=== PATIENT | male | born 1960 | race Caucasian/White ===

== ENCOUNTER 2022-08-18 00:55 | Inpatient (IN) | payer OTHER, SELFPAY ==
[2022-08-18] VITALS (15 sets, daily range): BP systolic 97–157; BP diastolic 58–98; PULSE 94–126; RESP 11–20; TEMP 36.4–39.2; O2SAT 87–100; BMI 21.5
--- NOTE | ~2022-08-18 | CT_ITS ---
EXAMINATION: NONCONTRAST HEAD CT NONCONTRAST CERVICAL SPINE CT INDICATION INFORMATION: Altered mental status COMPARISON: None TECHNIQUE: Separate noncontrast CT examinations of the head and cervical spine were performed. Coronal head CT images and coronal and sagittal cervical spine images were created at the technologist workstation. DLP: 979 mGy-cm DOSE LOWERING TECHNIQUES: This CT examination was performed using dose optimization techniques as appropriate, variously including the following: - Automated exposure control - Adjustment of mA and/or kV according to patient size (this includes techniques or standardized protocols for targeted exams were dose is matched to indication/reason for exam; i.e. extremities or head) - Use of iterative reconstruction technique FINDINGS: Head: There is no evidence of acute intracranial hemorrhage or territorial infarction. No abnormal mass-effect or midline shift is seen. [place] to white matter differentiation is well preserved. No extra-axial fluid collections are identified. The ventricles are normal in size. There is no abnormal attenuation within the brain parenchyma. The osseous structures and soft tissues are normal. The mastoid air cells are well-aerated. Trace fluid in the right maxillary and sphenoid sinuses. Mild aerosolization in the left sphenoid sinus. Cervical spine: There is anatomic alignment of the vertebral bodies and posterior elements. Vertebral body heights are maintained. There is disc space narrowing and endplate osteophyte formation most prominently at C5-C6. There is degenerative change at the atlantodens articulation. No evidence of acute fracture. No prevertebral soft tissue swelling. There is patchy groundglass opacity in the right upper lobe, which will be better assessed on accompanying dedicated chest CT. The thyroid gland is unremarkable. CT/CT cervical spine wo IV con IMPRESSION: No acute findings identified in the head or cervical spine.
--- NOTE | ~2022-08-18 | CT_ITS ---
EXAMINATION: CT ANGIOGRAM OF THE CHEST WITH AND WITHOUT CONTRAST (CT PULMONARY ANGIOGRAM FOR PE) CLINICAL INFORMATION: Reason for Exam syncope, elevated ddimer COMPARISON: None TECHNIQUE: Prior to contrast administration, noncontrast localization images were obtained. Subsequently, multidetector volumetric imaging was performed from the thoracic inlet to below the diaphragms following the administration of 65 mL Omnipaque 350 intravenous contrast. No contrast reaction reported Sagittal, coronal, and MIP oblique sagittal reformatted images were obtained on the CT workstation, uploaded to PACS, and reviewed. This CT examination was performed using dose optimization techniques as appropriate, variously including the following: *Automated exposure control *Adjustment of mA and/or kV according to patient size (this includes techniques or standardized protocols for targeted exams where dose is matched to indication/reason for exam; i.e. extremities or head) *Use of iterative reconstruction technique Total exam dose-length product 197 mGy-cm FINDINGS: QUALITY OF STUDY/CONTRAST BOLUS: Satisfactory. PULMONARY ARTERIES: No central or segmental pulmonary emboli. THORACIC AORTA: No aneurysm or dissection. LUNG: There are patchy regions of predominantly groundglass opacity mixed with some tree-in-bud type nodularity bilaterally, right lung greater than left with sparing of the left upper lobe. Associated bronchial wall thickening is present, and overall appearance favors an infectious/inflammatory etiology. PLEURA: No pleural effusion or pneumothorax. MEDIASTINUM: Visualized thyroid gland is unremarkable. There are subcentimeter mediastinal lymph nodes within the range of normal variation. Cardiac size is within normal limits; no pericardial effusion. No evidence of septal bowing or right heart strain. CHEST WALL/AXILLA: No axillary or internal mammary lymphadenopathy. OSSEOUS STRUCTURES: Multilevel degenerative endplate changes in the spine. UPPER ABDOMEN: Cholelithiasis is noted. No reflux of contrast into the hepatic veins to suggest elevated right heart pressures. CT/CT angio chest PE protocol IMPRESSION: 1. No pulmonary embolus identified. 2. Multifocal patchy groundglass and tree-in-bud type opacities, right lung greater than left. Appearance favors an infectious/inflammatory etiology. Associated bronchial wall thickening is noted. 3. Cholelithiasis. VTE: negative
--- NOTE | 2022-08-18 01:04 | ECG_ITS ---
Test Reason : weakness Blood Pressure : / mmHG Vent. Rate : 112 BPM Atrial Rate : 112 BPM P-R Int : 168 ms QRS Dur : 102 ms QT Int : 360 ms P-R-T Axes : 062 035 002 degrees QTc Int : 491 ms Sinus tachycardia RSR' or QR pattern in V1 suggests right ventricular conduction delay Intra-ventricular conduction delay Otherwise normal ECG No previous ECGs available Referred By: Garima Burris Electronically Signed By:PORTER GRAHAM MD
--- NOTE | 2022-08-18 01:07 | ED.AMS ---
HPI - Altered Mental Status General Chief Complaint: General Medical Stated Complaint: AMS Time Seen by Provider: 08/18/22 00:56 Source: patient and EMS Mode of arrival: EMS Limitations: altered mental status History of Present Illness HPI narrative: 62 yo male with hx of HIV states he is undetectable, DM on oral medications, HTN, asthma, HLD, on temazapem and gabapentin - EMS states that the patient came from [place] today to visit family. He was reportedly found unresponsive after spending time with family - he was found on the bedroom floor with copious amounts of emesis. Patient was hypoxic and bagged - given 2mg IV narcan and he woke up 30 seconds later confused and with even more vomiting. He states he doesn't know what happened and denies drug use. Family does not report seizure activity. Spouse did note he was talking weird prior to the event. complaint: altered mental status and confusion Onset (ago): minute(s) (just prior to arrival ) Timing confirmed by: family member Severity: severe Consistency of symptoms: unknown Context: other (denies drug abuse, woke up with narcan) Associated symptoms: nausea/vomiting and shortness of breath (wheezing) Treatments prior to arrival: oxygen and other (2mg IV narcan) Related Data Allergies Allergy/AdvReac Type Severity Reaction Status Date / Time No Known Allergies Allergy Verified 08/18/22 01:31 Review of Systems Review of Systems: ROS unable to be obtained due to altered mental status PMFSH Past Medical History Source: old records reviewed (obtained from a pill list) Medical History (Updated 08/18/22 @ 05:51 by Garima Burris DO) Asthma Diabetes HIV (human immunodeficiency virus infection) HTN (hypertension) Hyperlipidemia Social History Social History Alcohol intake: never Patient Tobacco Use Status: Tobacco use Unknown Use of substances other than those prescribed or required for medical reasons: No Advance Directives: No Physical Exam ED Vital Signs: Vital Signs - 24 hr 08/18/22 01:01 08/18/22 02:54 08/18/22 04:18 Temperature 97.5 F 97.5 F Pulse Rate 106 H 109 H 111 H Respiratory Rate 20 16 Blood Pressure 157/98 H 111/66 122/67 Pulse Oximetry 89 L 97 Oxygen Delivery Method Non-Rebreather Mask High Flow Nasal Cannula Oxygen Flow Rate 8 BMI result Body Mass Index 21.5 Appearance: Alert. Oriented X2 (person/time). Moderate acute distress. Eyes: Pupils equal, round and reactive to light. 3mm R pupil small corneal abrasion superficial at 10 o clock position ENT: Pharynx vomitus noted in NRB mask. Atraumatic Neck: Normal inspection. Neck supple. CVS: Normal heart rate and rhythm. Pulses normal. Respiratory: No respiratory distress. Breath sounds very diminished R base, wheezes noted Abdomen: Soft and nontender. Skin: Skin warm and clammy. pale skin color. Normal skin turgor. Extremities: No lower extremity edema. Neuro: Oriented X 2. No motor deficit. No sensory deficit. Course Course Course Narrative: 30cc/kg bolus ordered family states prior hx of opiate abuse but 25 years ago. did not use tonight. lactic acidosis could also be due to HIV medications and metformin multifocal patchy opacities already treated for aspiration given possible aspiration, will add on azithromycin lactic acid decreasing focal exam for sepsis performed at 434am + for opiates as suspected though patient denied. will admit repeat trop flat. trop under ischemic range still requiring O2 MDM - Altered Mental Status MDM Narrative Medical decision making narrative: 62 yo male with hx of HIV states he is undetectable, DM on oral medications, HTN, asthma, HLD, on temazapem and gabapentin after some sort of event at family's house where he was found down with copious amounts of emesis around him. He woke up with narcan but he denies opiate use. At this time will need EKG, labs, CT head/cspine for trauma. IV nausea medications. He does look like he is now in active withdrawal. Just traveled from [facility] order in case this was syncope from [facility]. He likely aspirated - cultures, lactic acid ordered. He will be given pepcid/zofran and further anti - emetics. If aspiration noted on CXR will start on zosyn. Dispo per results and findings. Neb treatment ordered as well given wheezing and hx of asthma. Lab Data Result diagrams: 08/18/22 01:42 08/18/22 01:41 Labs: Lab Results 08/18/22 08/18/22 08/18/22 Range/Units 01:38 01:38 01:41 WBC (4.8-10.8) X10*3/uL RBC (4.60-5.80) X10*6/uL Hgb (14.0-18.0) g/dl Hct (42.0-52.0) % MCV (80.0-98.0) fL MCH (27.0-33.0) pg MCHC (31.0-36.0) g/dl RDW (11.0-16.0) % Plt Count (160-400) X10*3/uL MPV (9.4-12.4) fL Immature Gran % (Auto) (0.0-0.4) % Neut % (Auto) (45-73) % Lymph % (Auto) (20-40) % [place] % (Auto) (2-11) % Eos % (Auto) (0-4) % Baso % (Auto) (0-2) % Lymph # (Auto) (1.2-4.9) X10*3/uL [place] # (Auto) (0.1-1.2) X10*3/uL Eos # (Auto) (0.0-0.4) X10*3/uL Baso # (Auto) (0.0-0.2) X10*3/uL Abs Immat Gran (auto) (0.00-0.03) X10*3/uL Absolute Neuts (auto) (2.0-8.3) x10*3/uL Absolute Nucleated RBC (0.0-0.012) X10*3/uL Nucleated RBC % (auto) (0.0-0.2) /100WBC PT 10.9 (10.0-13.1) SEC INR 1.0 (0.9-1.1) APTT 25.7 L (26.0-36.4) SEC D-Dimer High Sensitivty NG/ML VBG pH (7.32-7.43) VBG pCO2 mmHg VBG pO2 mmHg VBG HCO3 (22-26) mmol/L VBG O2 Saturation % VBG Base Excess mmol/L Sodium 137 (135-145) mmol/L Potassium 4.2 (3.3-5.1) mmol/L Chloride 100 (96-108) mmol/L Carbon Dioxide 19 L (22-29) mmol/L Anion Gap 22 H (12-20) BUN 21 H (9-16) mg/dL Creatinine 1.17 (0.5-1.4) mg/dL Estim Creat Clear Calc 55.7 Estimated GFR > 60 Random Glucose 286 H (60-115) mg/dL Lactic Acid (0.5-2.0) mmol/L Lactic Acid F/U @ 2Hr (0.5-2.0) mmol/L Calcium 9.7 (8.4-10.2) mg/dL Magnesium 3.1 H (1.6-2.6) mg/dL Total Bilirubin 0.5 (0.0-1.0) mg/dL Direct Bilirubin 0.2 (0.0-0.5) mg/dL AST 30 (5-37) U/L ALT 46 H (0-40) U/L Alkaline Phosphatase 60 (39-117) U/L Ammonia (13-55) umol/L Total Creatine Kinase 46 (38-174) U/L Troponin I High Sens (<3.5-35.0) ng/L Total Protein 8.4 H (6.5-8.0) g/dL Albumin 4.5 (3.5-5.0) g/dL Lipase 76 (8-78) U/L Urine Color Urine Appearance Urine pH (5.0-9.0) Ur Specific [place] (1.005-1.025) Urine Protein (Neg-Trace) mg/dL Urine Glucose (UA) (Negative) mg/dL Urine Ketones (Negative) mg/dL Urine Blood (Negative) Urine Nitrite (Negative) Ur Leukocyte Esterase (Negative) Urine RBC (0-2) /HPF Urine WBC (0-5) /HPF Ur Squamous Epith Cells (0-2) /HPF Urine Bacteria (None Seen) Hyaline Casts (0-2) /LPF Salicylates < 5.0 L (15-30) mg/dL Urine Opiates Screen (Not Detect) Urine Fentanyl Screen (Not Detect) Acetaminophen < 1 (<30) mcg/mL Ur Barbiturates Screen (Not Detect) Ur Phencyclidine Scrn (Not Detect) Ur Amphetamines Screen (Not Detect) U Benzodiazepines Scrn (Not Detect) Urine Cocaine Screen (Not Detect) U Marijuana (THC) Screen (Not Detect) Ethyl Alcohol < 10 mg/dL COVID-19 (ANAI) Negative (Negative) COVID-19 Clin Com See Note 08/18/22 08/18/22 08/18/22 Range/Units 01:41 01:41 01:42 WBC 6.1 (4.8-10.8) X10*3/uL RBC 4.44 L (4.60-5.80) X10*6/uL Hgb 13.3 L (14.0-18.0) g/dl Hct 40.1 L (42.0-52.0) % MCV 90.3 (80.0-98.0) fL MCH 30.0 (27.0-33.0) pg MCHC 33.2 (31.0-36.0) g/dl RDW 13.0 (11.0-16.0) % Plt Count 175 (160-400) X10*3/uL MPV 10.5 (9.4-12.4) fL Immature Gran % (Auto) 0.3 (0.0-0.4) % Neut % (Auto) 57.7 (45-73) % Lymph % (Auto) 35.5 (20-40) % [place] % (Auto) 5.0 (2-11) % Eos % (Auto) 1.2 (0-4) % Baso % (Auto) 0.3 (0-2) % Lymph # (Auto) 2.2 (1.2-4.9) X10*3/uL [place] # (Auto) 0.3 (0.1-1.2) X10*3/uL Eos # (Auto) 0.1 (0.0-0.4) X10*3/uL Baso # (Auto) 0.0 (0.0-0.2) X10*3/uL Abs Immat Gran (auto) 0.02 (0.00-0.03) X10*3/uL Absolute Neuts (auto) 3.5 (2.0-8.3) x10*3/uL Absolute Nucleated RBC 0.000 (0.0-0.012) X10*3/uL Nucleated RBC % (auto) 0.0 (0.0-0.2) /100WBC PT (10.0-13.1) SEC INR (0.9-1.1) APTT (26.0-36.4) SEC D-Dimer High Sensitivty NG/ML VBG pH (7.32-7.43) VBG pCO2 mmHg VBG pO2 mmHg VBG HCO3 (22-26) mmol/L VBG O2 Saturation % VBG Base Excess mmol/L Sodium (135-145) mmol/L Potassium (3.3-5.1) mmol/L Chloride (96-108) mmol/L Carbon Dioxide (22-29) mmol/L Anion Gap (12-20) BUN (9-16) mg/dL Creatinine (0.5-1.4) mg/dL Estim Creat Clear Calc Estimated GFR Random Glucose (60-115) mg/dL Lactic Acid 5.7 H* (0.5-2.0) mmol/L Lactic Acid F/U @ 2Hr (0.5-2.0) mmol/L Calcium (8.4-10.2) mg/dL Magnesium (1.6-2.6) mg/dL Total Bilirubin (0.0-1.0) mg/dL Direct Bilirubin (0.0-0.5) mg/dL AST (5-37) U/L ALT (0-40) U/L Alkaline Phosphatase (39-117) U/L Ammonia 35 (13-55) umol/L Total Creatine Kinase (38-174) U/L Troponin I High Sens (<3.5-35.0) ng/L Total Protein (6.5-8.0) g/dL Albumin (3.5-5.0) g/dL Lipase (8-78) U/L Urine Color Urine Appearance Urine pH (5.0-9.0) Ur Specific [place] (1.005-1.025) Urine Protein (Neg-Trace) mg/dL Urine Glucose (UA) (Negative) mg/dL Urine Ketones (Negative) mg/dL Urine Blood (Negative) Urine Nitrite (Negative) Ur Leukocyte Esterase (Negative) Urine RBC (0-2) /HPF Urine WBC (0-5) /HPF Ur Squamous Epith Cells (0-2) /HPF Urine Bacteria (None Seen) Hyaline Casts (0-2) /LPF Salicylates (15-30) mg/dL Urine Opiates Screen (Not Detect) Urine Fentanyl Screen (Not Detect) Acetaminophen (<30) mcg/mL Ur Barbiturates Screen (Not Detect) Ur Phencyclidine Scrn (Not Detect) Ur Amphetamines Screen (Not Detect) U Benzodiazepines Scrn (Not Detect) Urine Cocaine Screen (Not Detect) U Marijuana (THC) Screen (Not Detect) Ethyl Alcohol mg/dL COVID-19 (ANAI) (Negative) COVID-19 Clin Com 08/18/22 08/18/22 08/18/22 Range/Units 01:42 01:43 01:50 WBC (4.8-10.8) X10*3/uL RBC (4.60-5.80) X10*6/uL Hgb (14.0-18.0) g/dl Hct (42.0-52.0) % MCV (80.0-98.0) fL MCH (27.0-33.0) pg MCHC (31.0-36.0) g/dl RDW (11.0-16.0) % Plt Count (160-400) X10*3/uL MPV (9.4-12.4) fL Immature Gran % (Auto) (0.0-0.4) % Neut % (Auto) (45-73) % Lymph % (Auto) (20-40) % [place] % (Auto) (2-11) % Eos % (Auto) (0-4) % Baso % (Auto) (0-2) % Lymph # (Auto) (1.2-4.9) X10*3/uL [place] # (Auto) (0.1-1.2) X10*3/uL Eos # (Auto) (0.0-0.4) X10*3/uL Baso # (Auto) (0.0-0.2) X10*3/uL Abs Immat Gran (auto) (0.00-0.03) X10*3/uL Absolute Neuts (auto) (2.0-8.3) x10*3/uL Absolute Nucleated RBC (0.0-0.012) X10*3/uL Nucleated RBC % (auto) (0.0-0.2) /100WBC PT (10.0-13.1) SEC INR (0.9-1.1) APTT (26.0-36.4) SEC D-Dimer High Sensitivty 380 NG/ML VBG pH 7.31 L (7.32-7.43) VBG pCO2 35 mmHg VBG pO2 80 mmHg VBG HCO3 18 L (22-26) mmol/L VBG O2 Saturation 93.0 % VBG Base Excess -6.7 mmol/L Sodium (135-145) mmol/L Potassium (3.3-5.1) mmol/L Chloride (96-108) mmol/L Carbon Dioxide (22-29) mmol/L Anion Gap (12-20) BUN (9-16) mg/dL Creatinine (0.5-1.4) mg/dL Estim Creat Clear Calc Estimated GFR Random Glucose (60-115) mg/dL Lactic Acid (0.5-2.0) mmol/L Lactic Acid F/U @ 2Hr (0.5-2.0) mmol/L Calcium (8.4-10.2) mg/dL Magnesium (1.6-2.6) mg/dL Total Bilirubin (0.0-1.0) mg/dL Direct Bilirubin (0.0-0.5) mg/dL AST (5-37) U/L ALT (0-40) U/L Alkaline Phosphatase (39-117) U/L Ammonia (13-55) umol/L Total Creatine Kinase (38-174) U/L Troponin I High Sens < 3.5 (<3.5-35.0) ng/L Total Protein (6.5-8.0) g/dL Albumin (3.5-5.0) g/dL Lipase (8-78) U/L Urine Color Urine Appearance Urine pH (5.0-9.0) Ur Specific [place] (1.005-1.025) Urine Protein (Neg-Trace) mg/dL Urine Glucose (UA) (Negative) mg/dL Urine Ketones (Negative) mg/dL Urine Blood (Negative) Urine Nitrite (Negative) Ur Leukocyte Esterase (Negative) Urine RBC (0-2) /HPF Urine WBC (0-5) /HPF Ur Squamous Epith Cells (0-2) /HPF Urine Bacteria (None Seen) Hyaline Casts (0-2) /LPF Salicylates (15-30) mg/dL Urine Opiates Screen (Not Detect) Urine Fentanyl Screen (Not Detect) Acetaminophen (<30) mcg/mL Ur Barbiturates Screen (Not Detect) Ur Phencyclidine Scrn (Not Detect) Ur Amphetamines Screen (Not Detect) U Benzodiazepines Scrn (Not Detect) Urine Cocaine Screen (Not Detect) U Marijuana (THC) Screen (Not Detect) Ethyl Alcohol mg/dL COVID-19 (ANAI) (Negative) COVID-19 Clin Com 08/18/22 08/18/22 08/18/22 Range/Units 04:13 04:13 04:13 WBC (4.8-10.8) X10*3/uL RBC (4.60-5.80) X10*6/uL Hgb (14.0-18.0) g/dl Hct (42.0-52.0) % MCV (80.0-98.0) fL MCH (27.0-33.0) pg MCHC (31.0-36.0) g/dl RDW (11.0-16.0) % Plt Count (160-400) X10*3/uL MPV (9.4-12.4) fL Immature Gran % (Auto) (0.0-0.4) % Neut % (Auto) (45-73) % Lymph % (Auto) (20-40) % [place] % (Auto) (2-11) % Eos % (Auto) (0-4) % Baso % (Auto) (0-2) % Lymph # (Auto) (1.2-4.9) X10*3/uL [place] # (Auto) (0.1-1.2) X10*3/uL Eos # (Auto) (0.0-0.4) X10*3/uL Baso # (Auto) (0.0-0.2) X10*3/uL Abs Immat Gran (auto) (0.00-0.03) X10*3/uL Absolute Neuts (auto) (2.0-8.3) x10*3/uL Absolute Nucleated RBC (0.0-0.012) X10*3/uL Nucleated RBC % (auto) (0.0-0.2) /100WBC PT (10.0-13.1) SEC INR (0.9-1.1) APTT (26.0-36.4) SEC D-Dimer High Sensitivty NG/ML VBG pH (7.32-7.43) VBG pCO2 mmHg VBG pO2 mmHg VBG HCO3 (22-26) mmol/L VBG O2 Saturation % VBG Base Excess mmol/L Sodium (135-145) mmol/L Potassium (3.3-5.1) mmol/L Chloride (96-108) mmol/L Carbon Dioxide (22-29) mmol/L Anion Gap (12-20) BUN (9-16) mg/dL Creatinine (0.5-1.4) mg/dL Estim Creat Clear Calc Estimated GFR Random Glucose (60-115) mg/dL Lactic Acid (0.5-2.0) mmol/L Lactic Acid F/U @ 2Hr 2.4 H* (0.5-2.0) mmol/L Calcium (8.4-10.2) mg/dL Magnesium (1.6-2.6) mg/dL Total Bilirubin (0.0-1.0) mg/dL Direct Bilirubin (0.0-0.5) mg/dL AST (5-37) U/L ALT (0-40) U/L Alkaline Phosphatase (39-117) U/L Ammonia (13-55) umol/L Total Creatine Kinase (38-174) U/L Troponin I High Sens 7.6 D (<3.5-35.0) ng/L Total Protein (6.5-8.0) g/dL Albumin (3.5-5.0) g/dL Lipase (8-78) U/L Urine Color Yellow Urine Appearance Clear Urine pH 6.0 (5.0-9.0) Ur Specific [place] >= 1.030 H (1.005-1.025) Urine Protein Trace (Neg-Trace) mg/dL Urine Glucose (UA) >=1000 H (Negative) mg/dL Urine Ketones 15 (Negative) mg/dL Urine Blood Negative (Negative) Urine Nitrite Negative (Negative) Ur Leukocyte Esterase Negative (Negative) Urine RBC 0-2 (0-2) /HPF Urine WBC 0-5 (0-5) /HPF Ur Squamous Epith Cells 0-2 (0-2) /HPF Urine Bacteria None Seen (None Seen) Hyaline Casts 0-2 (0-2) /LPF Salicylates (15-30) mg/dL Urine Opiates Screen (Not Detect) Urine Fentanyl Screen (Not Detect) Acetaminophen (<30) mcg/mL Ur Barbiturates Screen (Not Detect) Ur Phencyclidine Scrn (Not Detect) Ur Amphetamines Screen (Not Detect) U Benzodiazepines Scrn (Not Detect) Urine Cocaine Screen (Not Detect) U Marijuana (THC) Screen (Not Detect) Ethyl Alcohol mg/dL COVID-19 (ANAI) (Negative) COVID-19 Clin Com 08/18/22 Range/Units 04:13 WBC (4.8-10.8) X10*3/uL RBC (4.60-5.80) X10*6/uL Hgb (14.0-18.0) g/dl Hct (42.0-52.0) % MCV (80.0-98.0) fL MCH (27.0-33.0) pg MCHC (31.0-36.0) g/dl RDW (11.0-16.0) % Plt Count (160-400) X10*3/uL MPV (9.4-12.4) fL Immature Gran % (Auto) (0.0-0.4) % Neut % (Auto) (45-73) % Lymph % (Auto) (20-40) % [place] % (Auto) (2-11) % Eos % (Auto) (0-4) % Baso % (Auto) (0-2) % Lymph # (Auto) (1.2-4.9) X10*3/uL [place] # (Auto) (0.1-1.2) X10*3/uL Eos # (Auto) (0.0-0.4) X10*3/uL Baso # (Auto) (0.0-0.2) X10*3/uL Abs Immat Gran (auto) (0.00-0.03) X10*3/uL Absolute Neuts (auto) (2.0-8.3) x10*3/uL Absolute Nucleated RBC (0.0-0.012) X10*3/uL Nucleated RBC % (auto) (0.0-0.2) /100WBC PT (10.0-13.1) SEC INR (0.9-1.1) APTT (26.0-36.4) SEC D-Dimer High Sensitivty NG/ML VBG pH (7.32-7.43) VBG pCO2 mmHg VBG pO2 mmHg VBG HCO3 (22-26) mmol/L VBG O2 Saturation % VBG Base Excess mmol/L Sodium (135-145) mmol/L Potassium (3.3-5.1) mmol/L Chloride (96-108) mmol/L Carbon Dioxide (22-29) mmol/L Anion Gap (12-20) BUN (9-16) mg/dL Creatinine (0.5-1.4) mg/dL Estim Creat Clear Calc Estimated GFR Random Glucose (60-115) mg/dL Lactic Acid (0.5-2.0) mmol/L Lactic Acid F/U @ 2Hr (0.5-2.0) mmol/L Calcium (8.4-10.2) mg/dL Magnesium (1.6-2.6) mg/dL Total Bilirubin (0.0-1.0) mg/dL Direct Bilirubin (0.0-0.5) mg/dL AST (5-37) U/L ALT (0-40) U/L Alkaline Phosphatase (39-117) U/L Ammonia (13-55) umol/L Total Creatine Kinase (38-174) U/L Troponin I High Sens (<3.5-35.0) ng/L Total Protein (6.5-8.0) g/dL Albumin (3.5-5.0) g/dL Lipase (8-78) U/L Urine Color Urine Appearance Urine pH (5.0-9.0) Ur Specific [place] (1.005-1.025) Urine Protein (Neg-Trace) mg/dL Urine Glucose (UA) (Negative) mg/dL Urine Ketones (Negative) mg/dL Urine Blood (Negative) Urine Nitrite (Negative) Ur Leukocyte Esterase (Negative) Urine RBC (0-2) /HPF Urine WBC (0-5) /HPF Ur Squamous Epith Cells (0-2) /HPF Urine Bacteria (None Seen) Hyaline Casts (0-2) /LPF Salicylates (15-30) mg/dL Urine Opiates Screen POSITIVE H (Not Detect) Urine Fentanyl Screen POSITIVE H (Not Detect) Acetaminophen (<30) mcg/mL Ur Barbiturates Screen Not Detected (Not Detect) Ur Phencyclidine Scrn Not Detected (Not Detect) Ur Amphetamines Screen Not Detected (Not Detect) U Benzodiazepines Scrn Not Detected (Not Detect) Urine Cocaine Screen Not Detected (Not Detect) U Marijuana (THC) Screen Not Detected (Not Detect) Ethyl Alcohol mg/dL COVID-19 (ANAI) (Negative) COVID-19 Clin Com ECG Data ECG #1: Attestation: I personally reviewed and interpreted this ECG as follows: ECG interpretation date: 08/18/22 ECG interpretation time: 01:07 Interpretation: Rate: 112 Rhythm: sinus tachycardia [place]: normal Normal P waves. Normal ERIN. slightly widened QRS complex. ST T wave : no NAHUM, nonspecific qTC: prolonged prior studies: none The study has been interpreted contemporaneously by me. . Critical Care Time Critical Care Time Critical Care Time: Yes Total Critical Care Time: 45 Attestation: reassessments, IVF, repeat labs, review of medications on PillID, admission to hospital, hypoxia interventions I attest to this time spent taking care of the patient Discharge Plan Discharge Clinical Impression: Acidosis, lactic, Syncope, Ground glass opacity present on imaging of lung, Hypoxia, Accidental fentanyl overdose, Pneumonitis, Abrasion, corneal Patient Disposition: Admitted As Inpatient
[2022-08-18] MEDS: Albuterol Sulfate (0.083%) 2.5 MG/3 ML VIAL.NEB INHALE (01:13)
[2022-08-18] MEDS: ondansetron HCL 4 MG/2 ML VIAL IVPUSH ×2 (01:17→06:26)
[2022-08-18] MEDS: Magnesium Sulfate/H2O 2 GM/50 ML PIGGYBACK IV (01:20)
[2022-08-18] MEDS: Metoclopramide HCl 10 MG/2 ML VIAL 5 MG IVPUSH (01:34)
[2022-08-18] MEDS: Famotidine/PF 20 MG/2 ML VIAL IVPUSH (01:35)
[2022-08-18] MEDS: diphenhydrAMINE HCL 50 MG/ML VIAL 25 MG IVPUSH (01:35)
[2022-08-18 01:51] LABS: Basophils Percent Auto 0.3 % (0-2); Eosinophils Absolute Auto 0.1 X10*3/uL (0.0-0.4); Eosinophils Percent Auto 1.2 % (0-4); Hematocrit 40.1 % (42.0-52.0); Hemoglobin 13.3 g/dl (14.0-18.0); Imm Gran Abs Auto 0.02 X10*3/uL (0.00-0.03); Imm Gran Pct Auto 0.3 % (0.0-0.4); Lymphocytes Absolute Auto 2.2 X10*3/uL (1.2-4.9); Lymphocytes Percent Auto 35.5 % (20-40); MANUAL DIFF FLAG NO; Mean Corpuscular HGB Conc 33.2 g/dl (31.0-36.0); Mean Corpuscular Volume 90.3 fL (80.0-98.0); Mean Platelet Volume 10.5 fL (9.4-12.4); Monocytes Absolute Auto 0.3 X10*3/uL (0.1-1.2); Neutrophils Absolute Auto 3.5 x10*3/uL (2.0-8.3); Neutrophils Percent Auto 57.7 % (45-73); Platelet Count 175 X10*3/uL (160-400); Red Blood Count 4.44 X10*6/uL (4.60-5.80); White Blood Count 6.1 X10*3/uL (4.8-10.8)
[2022-08-18 01:56] LABS: Venous Blood Gas Refer to POC result
[2022-08-18 01:57] LABS: Prothrombin Time 10.9 SEC (10.0-13.1)
[2022-08-18 01:57] LABS: VBG Base Excess -6.7 mmol/L; VBG HCO3 18 mmol/L (22-26); VBG pCO2 35 mmHg; VBG pH 7.31 (7.32-7.43); VBG pO2 80 mmHg
[2022-08-18 01:59] LABS: D Dimer High Sensitivity 380 NG/ML
[2022-08-18 02:00] LABS: Partial Thromboplastin Time 25.7 SEC (26.0-36.4)
[2022-08-18 02:02] LABS: Ammonia 35 umol/L (13-55)
[2022-08-18 02:06] LABS: COVID-19 Test Negative (Negative)
[2022-08-18 02:08] LABS: Lactic Acid 5.7 mmol/L (0.5-2.0)
[2022-08-18 02:14] LABS: Troponin-I High Sensitivity < 3.5 ng/L (<3.5-35.0)
[2022-08-18 02:20] LABS: Acetaminophen LAB < 1 mcg/mL (<30); Alanine Aminotransferase 46 U/L (0-40); Albumin Level 4.5 g/dL (3.5-5.0); Alkaline Phosphatase 60 U/L (39-117); Anion Gap 22 (12-20); Aspartate Amino Transferase 30 U/L (5-37); Bilirubin Direct 0.2 mg/dL (0.0-0.5); Bilirubin Total 0.5 mg/dL (0.0-1.0); Blood Urea Nitrogen 21 mg/dL (9-16); Calcium 9.7 mg/dL (8.4-10.2); Carbon Dioxide 19 mmol/L (22-29); Chloride 100 mmol/L (96-108); Creatinine Clr Calc Pharmacy 55.7; Estimated Glomerular Filt Rate > 60; Ethanol < 10 mg/dL; Glucose Random 286 mg/dL (60-115); Lipase 76 U/L (8-78); Magnesium 3.1 mg/dL (1.6-2.6); Potassium 4.2 mmol/L (3.3-5.1); Salicylate < 5.0 mg/dL (15-30); Sodium 137 mmol/L (135-145); Total Protein 8.4 g/dL (6.5-8.0)
[2022-08-18] MEDS: SODIUM CHLORIDE 1761 ML IV (02:48)
[2022-08-18] MEDS: Piperacillin Sodium/Tazobactam 3.375 GM in 0.9 % Sodium Chloride 50 ML IV (02:52)
[2022-08-18] MEDS: iohexoL 350 MG/ML 100 ML INFUS..BTL 65 ML IV (02:53)
[2022-08-18 03:51] LABS: Reflex Lactate? Lactic Acid Added
[2022-08-18 04:22] LABS: Appearance Urine Clear; Color Urine Yellow; Glucose Urine UA >=1000 mg/dL (Negative); Leukocyte Esterase Urine Negative (Negative); Nitrite Urine Negative (Negative); Specific Gravity - Urine >= 1.030 (1.005-1.025); UMIC TRIGGER UACC YES; Urine Blood Negative (Negative); Urine Ketones 15 mg/dL (Negative); Urine Protein Trace mg/dL (Neg-Trace)
[2022-08-18 04:27] LABS: Bacteria Urine None Seen (None Seen); Hyaline Casts Urine 0-2 /LPF (0-2); RBC Urine 0-2 /HPF (0-2); Squamous Epithelial Cell Urine 0-2 /HPF (0-2); WBC Urine 0-5 /HPF (0-5)
[2022-08-18 04:33] LABS: ~Lactic Acid-LAB USE ONLY 2.4 mmol/L (0.5-2.0)
[2022-08-18 04:37] LABS: Amphetamine Screen Urine Not Detected (Not Detect); Barbiturates, Urine Not Detected (Not Detect); Benzodiazepines Screen Urine Not Detected (Not Detect); Cannabinoid Screen Urine Not Detected (Not Detect); Cocaine Screen Urine Not Detected (Not Detect); Fentanyl, urine POSITIVE (Not Detect); Opiate Screen Urine POSITIVE (Not Detect); Phencyclidine Screen Urine Not Detected (Not Detect)
[2022-08-18 04:42] LABS: Troponin-I High Sensitivity 7.6 ng/L (<3.5-35.0)
[2022-08-18] MEDS: Azithromycin 500 MG in 0.9 % Sodium Chloride 250 ML 125 MG IV (04:45)
--- NOTE | 2022-08-18 05:18 | P.HPHOSP_ITS ---
History of Present Illness Date of Service: 08/18/22 Chief Complaint: Found down This is a 62-year-old male, resident of [place] with pertinent history of HIV, opioid use disorder, wft-hlxlnnr-dytcqddro diabetes mellitus, essential hypertension, hyperlipidemia who was brought to the emergency department after he was found unresponsive. Patient does not know why he is in the hospital and has no memory of what happened. States he was visiting family in the area for a . As per records, patient was found unresponsive on bedroom floor with copious amounts of emesis. Upon EMS arrival, patient was hypoxemic in the 80s. He woke up after 2 mg of IV Narcan but was confused. Patient initially denied drug use but later stated that he used heroin prior to being passed out. No seizure activity reported. Patient does endorse shortness of breath but denies fever, chills, chest discomfort, abdominal pain, changes in urinary or bowel habits. States he was clean for 25 years until he snorted heroin today. Review of Systems Review of Systems: All 13 review of systems are negative except as noted in [facility] Medical History (Updated 08/18/22 @ 05:28 by Cher Ramos MD) Asthma Diabetes HIV (human immunodeficiency virus infection) HTN (hypertension) Hyperlipidemia Social History Alcohol intake: never Patient Tobacco Use Status: Tobacco use Unknown Use of substances other than those prescribed or required for medical reasons: No Advance Directives: No Meds Allergies Allergy/AdvReac Type Severity Reaction Status Date / Time No Known Allergies Allergy Verified 08/18/22 01:31 Active Medications: Current Medications Acetaminophen (Acetaminophen 325 Mg Tablet) 650 mg PO Q6H PRN PRN Reason: Pain, Mild (Pain Scale 1-3) Benzonatate (Benzonatate 100 Mg Capsule) 100 mg PO TID PRN PRN Reason: Cough Enoxaparin Sodium (Enoxaparin Sodium 40 Mg/0.4 Ml Syringe) 40 mg SUBCUT Q24H AUBREE Azithromycin 500 mg/ Sodium (Chloride) 250 mls @ 125 mls/hr IV ONCE ONE Stop: 08/18/22 05:40 Melatonin (Melatonin 3 Mg Tablet) 6 mg PO BEDTIME PRN PRN Reason: Insomnia Ondansetron HCl (Ondansetron Hcl 4 Mg/2 Ml Vial) 4 mg IVPUSH Q8H PRN PRN Reason: Nausea and Vomiting Sodium Chloride (0.9 % Sodium Chloride Flush 3 Ml Syringe) 3 ml IVFLUSH QSHIFT AUBREE Physical Exam Vital Signs and Narrative: Vital Signs: Last Vital Signs Temp 97.5 F 08/18/22 02:54 Pulse 111 H 08/18/22 04:18 Resp 16 08/18/22 02:54 BP 122/67 08/18/22 04:18 Pulse Ox 97 08/18/22 02:54 O2 Del Method 08/18/22 02:54 O2 Flow Rate 8 08/18/22 02:54 Oxygen Flow Rate 10 08/18/22 01:01 BMI result Body Mass Index 21.5 Middle-aged male lying in bed in no distress on 2 L supplemental oxygen Neck supple, no JVD Tachycardic with regular rhythm, S1-S2 heard Right-sided crackles heard Abdomen soft nontender, no guarding, no rigidity Patient is awake, alert and oriented to self, place, time and person ; no focal motor deficit Psych: Normal mood No pedal edema Results Labs CBC and Chem 7: 08/18/22 01:42 08/18/22 01:41 Labs: Laboratory Results - last 24 hr 08/18/22 08/18/22 08/18/22 01:38 01:38 01:41 MCV MCH MCHC RDW Plt Count MPV Immature Gran % (Auto) Neut % (Auto) Lymph % (Auto) [place] % (Auto) Eos % (Auto) Baso % (Auto) Lymph # (Auto) [place] # (Auto) Eos # (Auto) Baso # (Auto) Abs Immat Gran (auto) Absolute Neuts (auto) Absolute Nucleated RBC Nucleated RBC % (auto) PT 10.9 INR 1.0 APTT 25.7 L D-Dimer High Sensitivty VBG pH VBG pCO2 VBG pO2 VBG HCO3 VBG O2 Saturation VBG Base Excess Anion Gap 22 H Estim Creat Clear Calc 55.7 Estimated GFR > 60 Random Glucose 286 H Lactic Acid Lactic Acid F/U @ 2Hr Calcium 9.7 Magnesium 3.1 H Total Bilirubin 0.5 Direct Bilirubin 0.2 AST 30 ALT 46 H Alkaline Phosphatase 60 Ammonia Total Creatine Kinase 46 Troponin I High Sens Total Protein 8.4 H Albumin 4.5 Lipase 76 Urine Color Urine Appearance Urine pH Ur Specific [place] Urine Protein Urine Glucose (UA) Urine Ketones Urine Blood Urine Nitrite Ur Leukocyte Esterase Urine RBC Urine WBC Ur Squamous Epith Cells Urine Bacteria Hyaline Casts Salicylates < 5.0 L Urine Opiates Screen Urine Fentanyl Screen Acetaminophen < 1 Ur Barbiturates Screen Ur Phencyclidine Scrn Ur Amphetamines Screen U Benzodiazepines Scrn Urine Cocaine Screen U Marijuana (THC) Screen Ethyl Alcohol < 10 COVID-19 (ANAI) Negative COVID-19 Clin Com See Note 08/18/22 08/18/22 08/18/22 01:41 01:41 01:42 MCV 90.3 MCH 30.0 MCHC 33.2 RDW 13.0 Plt Count 175 MPV 10.5 Immature Gran % (Auto) 0.3 Neut % (Auto) 57.7 Lymph % (Auto) 35.5 [place] % (Auto) 5.0 Eos % (Auto) 1.2 Baso % (Auto) 0.3 Lymph # (Auto) 2.2 [place] # (Auto) 0.3 Eos # (Auto) 0.1 Baso # (Auto) 0.0 Abs Immat Gran (auto) 0.02 Absolute Neuts (auto) 3.5 Absolute Nucleated RBC 0.000 Nucleated RBC % (auto) 0.0 PT INR APTT D-Dimer High Sensitivty VBG pH VBG pCO2 VBG pO2 VBG HCO3 VBG O2 Saturation VBG Base Excess Anion Gap Estim Creat Clear Calc Estimated GFR Random Glucose Lactic Acid 5.7 H* Lactic Acid F/U @ 2Hr Calcium Magnesium Total Bilirubin Direct Bilirubin AST ALT Alkaline Phosphatase Ammonia 35 Total Creatine Kinase Troponin I High Sens Total Protein Albumin Lipase Urine Color Urine Appearance Urine pH Ur Specific [place] Urine Protein Urine Glucose (UA) Urine Ketones Urine Blood Urine Nitrite Ur Leukocyte Esterase Urine RBC Urine WBC Ur Squamous Epith Cells Urine Bacteria Hyaline Casts Salicylates Urine Opiates Screen Urine Fentanyl Screen Acetaminophen Ur Barbiturates Screen Ur Phencyclidine Scrn Ur Amphetamines Screen U Benzodiazepines Scrn Urine Cocaine Screen U Marijuana (THC) Screen Ethyl Alcohol COVID-19 (ANAI) COVID-19 Clin Com 08/18/22 08/18/22 08/18/22 01:42 01:43 01:50 MCV MCH MCHC RDW Plt Count MPV Immature Gran % (Auto) Neut % (Auto) Lymph % (Auto) [place] % (Auto) Eos % (Auto) Baso % (Auto) Lymph # (Auto) [place] # (Auto) Eos # (Auto) Baso # (Auto) Abs Immat Gran (auto) Absolute Neuts (auto) Absolute Nucleated RBC Nucleated RBC % (auto) PT INR APTT D-Dimer High Sensitivty 380 VBG pH 7.31 L VBG pCO2 35 VBG pO2 80 VBG HCO3 18 L VBG O2 Saturation 93.0 VBG Base Excess -6.7 Anion Gap Estim Creat Clear Calc Estimated GFR Random Glucose Lactic Acid Lactic Acid F/U @ 2Hr Calcium Magnesium Total Bilirubin Direct Bilirubin AST ALT Alkaline Phosphatase Ammonia Total Creatine Kinase Troponin I High Sens < 3.5 Total Protein Albumin Lipase Urine Color Urine Appearance Urine pH Ur Specific [place] Urine Protein Urine Glucose (UA) Urine Ketones Urine Blood Urine Nitrite Ur Leukocyte Esterase Urine RBC Urine WBC Ur Squamous Epith Cells Urine Bacteria Hyaline Casts Salicylates Urine Opiates Screen Urine Fentanyl Screen Acetaminophen Ur Barbiturates Screen Ur Phencyclidine Scrn Ur Amphetamines Screen U Benzodiazepines Scrn Urine Cocaine Screen U Marijuana (THC) Screen Ethyl Alcohol COVID-19 (ANAI) COVID-19 Clin Com 08/18/22 08/18/22 08/18/22 04:13 04:13 04:13 MCV MCH MCHC RDW Plt Count MPV Immature Gran % (Auto) Neut % (Auto) Lymph % (Auto) [place] % (Auto) Eos % (Auto) Baso % (Auto) Lymph # (Auto) [place] # (Auto) Eos # (Auto) Baso # (Auto) Abs Immat Gran (auto) Absolute Neuts (auto) Absolute Nucleated RBC Nucleated RBC % (auto) PT INR APTT D-Dimer High Sensitivty VBG pH VBG pCO2 VBG pO2 VBG HCO3 VBG O2 Saturation VBG Base Excess Anion Gap Estim Creat Clear Calc Estimated GFR Random Glucose Lactic Acid Lactic Acid F/U @ 2Hr 2.4 H* Calcium Magnesium Total Bilirubin Direct Bilirubin AST ALT Alkaline Phosphatase Ammonia Total Creatine Kinase Troponin I High Sens 7.6 D Total Protein Albumin Lipase Urine Color Yellow Urine Appearance Clear Urine pH 6.0 Ur Specific [place] >= 1.030 H Urine Protein Trace Urine Glucose (UA) >=1000 H Urine Ketones 15 Urine Blood Negative Urine Nitrite Negative Ur Leukocyte Esterase Negative Urine RBC 0-2 Urine WBC 0-5 Ur Squamous Epith Cells 0-2 Urine Bacteria None Seen Hyaline Casts 0-2 Salicylates Urine Opiates Screen Urine Fentanyl Screen Acetaminophen Ur Barbiturates Screen Ur Phencyclidine Scrn Ur Amphetamines Screen U Benzodiazepines Scrn Urine Cocaine Screen U Marijuana (THC) Screen Ethyl Alcohol COVID-19 (ANAI) COVID-19 Clin Com 08/18/22 04:13 MCV MCH MCHC RDW Plt Count MPV Immature Gran % (Auto) Neut % (Auto) Lymph % (Auto) [place] % (Auto) Eos % (Auto) Baso % (Auto) Lymph # (Auto) [place] # (Auto) Eos # (Auto) Baso # (Auto) Abs Immat Gran (auto) Absolute Neuts (auto) Absolute Nucleated RBC Nucleated RBC % (auto) PT INR APTT D-Dimer High Sensitivty VBG pH VBG pCO2 VBG pO2 VBG HCO3 VBG O2 Saturation VBG Base Excess Anion Gap Estim Creat Clear Calc Estimated GFR Random Glucose Lactic Acid Lactic Acid F/U @ 2Hr Calcium Magnesium Total Bilirubin Direct Bilirubin AST ALT Alkaline Phosphatase Ammonia Total Creatine Kinase Troponin I High Sens Total Protein Albumin Lipase Urine Color Urine Appearance Urine pH Ur Specific [place] Urine Protein Urine Glucose (UA) Urine Ketones Urine Blood Urine Nitrite Ur Leukocyte Esterase Urine RBC Urine WBC Ur Squamous Epith Cells Urine Bacteria Hyaline Casts Salicylates Urine Opiates Screen POSITIVE H Urine Fentanyl Screen POSITIVE H Acetaminophen Ur Barbiturates Screen Not Detected Ur Phencyclidine Scrn Not Detected Ur Amphetamines Screen Not Detected U Benzodiazepines Scrn Not Detected Urine Cocaine Screen Not Detected U Marijuana (THC) Screen Not Detected Ethyl Alcohol COVID-19 (ANAI) COVID-19 Clin Com Imaging Radiologist's Impressions: Impressions Cervical Spine CT 08/18/22 02:30 IMPRESSION: No acute findings identified in the head or cervical spine. Head CT 08/18/22 02:30 IMPRESSION: No acute findings identified in the head or cervical spine. Chest CTA 08/18/22 02:53 IMPRESSION: 1. No pulmonary embolus identified. 2. Multifocal patchy groundglass and tree-in-bud type opacities, right lung greater than left. Appearance favors an infectious/inflammatory etiology. Associated bronchial wall thickening is noted. 3. Cholelithiasis. VTE: negative Assessment and Plan (1) Hypoxia: Status: Acute (2) Aspiration pneumonia: Status: Acute (3) Acidosis, lactic: Status: Acute (4) Diabetes: Status: Acute (5) Opioid use: Status: Acute (6) HTN (hypertension): Status: Acute (7) Hyperlipidemia: Status: Acute (8) HIV (human immunodeficiency virus infection): Status: Acute Plan This is a 62-year-old male, resident of [place] with pertinent history of HIV, opioid use disorder, syu-rliixzf-queoozgxk diabetes mellitus, essential hypertension, hyperlipidemia who was brought to the emergency department after he was found unresponsive. #. Acute hypoxemic respiratory failure: #. Sepsis due to aspiration pneumonia -will admit patient with supplemental oxygen. Currently on 2 L, maintain oxygen saturation greater than 92% and wean as tolerated. Initiated Unasyn for asp iration pneumonia. #. Acute toxic encephalopathy due to: #. Opioid use disorder -improved mentation with Narcan. Monitor for withdrawal. #. Type a lactic acidosis -trending down with IV fluid resuscitation #. Dpw-mfchzvf-onpjywwjb diabetes mellitus with hyperglycemia -hold glipizide. Initiate Accu-Cheks with sliding scale insulin #. Essential hypertension #. Mixed hyperlipidemia -continue home medications #. HIV -patient states he is compliant and his viral load is undetectable. Continue antiviral therapy DVT prophylaxis: Lovenox 40 mg daily Diet: Cardiac diet Full code Patient will require two night minimum hospital stay for management of acute hypoxemic respiratory failure due to sepsis and aspiration pneumonia, need for IV antibiotics and close monitoring in a patient with opioid use disorder. Quality Stroke Does the patient have a stroke diagnosis?: No VTE Prior VTE?: No VTE Risk Level:: Medical - moderate - high VTE Device Contraindication: Treatment Not Indicated VTE Drug Contraindication: N/A - Med Ordered
[2022-08-18] MEDS: Albuterol/Iprat 2.5/0.5MG 3 ML AMPUL.NEB INHALE ×5 (05:41→19:30)
--- NOTE | 2022-08-18 05:46 | PC.NURSE ---
Patient c/o right eye pain and irritation. Eye constant watering, slightly red. Dr. Prieto aware see MAR.
[2022-08-18 06:19] LABS: Reflex Lactate? 2 Y
[2022-08-18] MEDS: Enoxaparin Sodium 40 MG/0.4 ML SYRINGE SUBCUT (06:26)
[2022-08-18] MEDS: Fluorescein Sodium STRIP 1 STRIP EYE-RIGHT (06:26)
[2022-08-18] MEDS: Tetracaine HCl/PF 0.5% Oph Sol 4 ML DROPS 1 DROP EYE-RIGHT (06:26)
[2022-08-18] MEDS: Benzonatate 100 MG CAPSULE PO (06:26)
[2022-08-18 07:05] LABS: Glucose, Whole Blood 257 mg/dL (60-115)
[2022-08-18 07:15] LABS: MANUAL DIFF FLAG NO
[2022-08-18] MEDS: Ampicillin Sodium/Sulbactam Na 3 GM in 0.9 % Sodium Chloride 100 ML IV ×4 (07:15→23:47)
[2022-08-18] MEDS: Insulin Lispro 100 UNIT/ML 3 ML VIAL SUBCUT ×3 (07:16→20:45)
[2022-08-18] MEDS: Erythromycin Base 0.5% Oph Oin 1 GM TUBE 1 CM EYE-BOTH ×2 (07:17→20:45)
[2022-08-18 07:26] LABS: Basophils Percent Auto 0.3 % (0-2); Hematocrit 39.1 % (42.0-52.0); Hemoglobin 12.8 g/dl (14.0-18.0); Imm Gran Abs Auto 0.01 X10*3/uL (0.00-0.03); Imm Gran Pct Auto 0.2 % (0.0-0.4); Lymphocytes Absolute Auto 0.3 X10*3/uL (1.2-4.9); Lymphocytes Percent Auto 4.8 % (20-40); Mean Corpuscular HGB Conc 32.7 g/dl (31.0-36.0); Mean Corpuscular Hemoglobin 30.3 pg (27.0-33.0); Mean Corpuscular Volume 92.4 fL (80.0-98.0); Mean Platelet Volume 10.6 fL (9.4-12.4); Monocytes Absolute Auto 0.4 X10*3/uL (0.1-1.2); Monocytes Percent Auto 6.8 % (2-11); Neutrophils Absolute Auto 5.1 x10*3/uL (2.0-8.3); Neutrophils Percent Auto 87.9 % (45-73); Platelet Count 147 X10*3/uL (160-400); Red Blood Count 4.23 X10*6/uL (4.60-5.80); Red Cell Distribution Width 13.1 % (11.0-16.0); White Blood Count 5.9 X10*3/uL (4.8-10.8)
[2022-08-18 07:31] LABS: Estimated Average Glucose 171 mg/dL; Hemoglobin A1c % 7.6 %
[2022-08-18] MEDS: Acetaminophen 325 MG TABLET 650 MG PO ×2 (07:33→20:45)
[2022-08-18 07:42] LABS: Anion Gap 17 (12-20); Blood Urea Nitrogen 16 mg/dL (9-16); Calcium 8.6 mg/dL (8.4-10.2); Carbon Dioxide 23 mmol/L (22-29); Chloride 101 mmol/L (96-108); Creatinine Clr Calc Pharmacy 66.5; Estimated Glomerular Filt Rate > 60; Glucose Random 274 mg/dL (60-115); Potassium 4.8 mmol/L (3.3-5.1); Sodium 136 mmol/L (135-145)
[2022-08-18] MEDS: Lactated Ringers 1,000 ML 100 ML IVCONT ×2 (08:14→18:12)
--- NOTE | 2022-08-18 09:40 | PHA.MEDREC ---
Pharmacy Consult ? Medication Reconciliation Pharmacy has completed the medication reconciliation.
[2022-08-18 09:41] LABS: Procalcitonin 0.36 ng/mL
[2022-08-18 11:21] LABS: Troponin-I High Sensitivity 28.7 ng/L (<3.5-35.0)
[2022-08-18 11:39] LABS: Glucose, Whole Blood 222 mg/dL (60-115)
--- NOTE | 2022-08-18 13:27 | P.EN_ITS ---
Event Note Date of Service: 08/18/22 Event Note: day hospitalist update S coughing now not lightheaded O Temp Pulse Resp BP Pulse Ox O2 Del Method O2 Flow Rate 97.5 F 96 16 131/87 97 3 08/18/22 02:54 08/18/22 12:47 08/18/22 12:47 08/18/22 08:14 08/18/22 08:14 08/18/22 08:14 08/18/22 08:14 gen- NAD lungs- bilateral insp crackles CV- RRR no m/r/g abd- soft/NT ext- no edema labs- PCT 0.36, Tn-I 7.6->28.7 EKG- sinus tachycardia, no ischemic changes A/P d#1 62[facility] [place], DM2, HTN, HLD brought after unreponsive episode after which he was given naloxone and then admitted to heroin use after initial denial, developed hypoxia + sepsis # acute hypoxic resp failure - wean O2 as tolerated # sepsis due to PNA - suspected aspiration, on d#1 amp/sulbactam, trend PCT, follow BCx, check RPP # Tn-I elevation - suspect demand from sepsis but will obtain TTE + Cardiology consult # toxic encephalopathy due to opioid abuse # OUD - monitor for withdrawal, Addiction Medicine + CARE Team consults # lactic acidosis - continue IV fluid resuscitation # DM2 with hyperglycemia - hold OHGs, give correction-dose lispro # HTN - lisinopril # HLD - pravastatin # HIV - continue Genvoya, viral load + CD4 pending # VTE ppx: LMWH In my clinical judgment, the patient requires continued hospitalization for the following reasons: hypoxia, IV ABX
[2022-08-18 14:13] LABS: Troponin-I High Sensitivity 30.9 ng/L (<3.5-35.0)
--- NOTE | 2022-08-18 15:12 | HO.SUDE ---
SUDE Patient is a 62 year old [place]ican speaking male who presented to [facility] ED after an accidental overdose. This promotion writer met with patient in 482 to discuss his substance use and recovery supports. Patient reports he moved out of [place] about 24 years ago and is back for the of his brother in law. Patient reports multiple losses and reports he had a moment of weakness and used for the first time in over ten years. Patient reports he did not use much at all and threw away the rest of the bag. Patient suspects that there was something wrong with the heroin. Informed patient that there was fentanyl in the bag and that it does not take much fentanyl to produce a fatal overdose. Patient acknowledged. Patient is adamant that he only used the one time. Patient is familiar with withdrawal symptoms and denies them at this time. Encouraged patient to inform staff if he experiences withdrawal. Patient reports he has never overdosed before. Patient reports he was in treatment in [place] about 15 years ago for a year and that he was on methadone at that time. Patient reports he has been in counseling before and found it helpful. Discussed relapse prevention with patient and reviewed harm reduction strategies. Recovery Support Team available as needed.
[2022-08-18] MEDS: lisinopriL 2.5 MG TABLET PO (15:45)
[2022-08-18] MEDS: Multivitamin TABLET 1 TAB PO (15:46)
[2022-08-18] MEDS: Ferrous Sulfate 324 MG TABLET.DR PO (15:46)
[2022-08-18] MEDS: Gabapentin 300 MG CAPSULE PO ×2 (15:46→20:45)
[2022-08-18] MEDS: Cholecalciferol (Vitamin D3) 25 MCG TABLET 125 MCG PO (15:46)
[2022-08-18 17:10] LABS: Glucose, Whole Blood 193 mg/dL (60-115)
[2022-08-18] MEDS: Pravastatin Sodium 10 MG TABLET PO (17:15)
[2022-08-18 20:23] LABS: Glucose, Whole Blood 183 mg/dL (60-115)
[2022-08-18] MEDS: 0.9 % Sodium Chloride Flush 3 ML SYRINGE IVFLUSH (20:45)
[2022-08-19] VITALS (11 sets, daily range): BP systolic 107–117; BP diastolic 62–76; PULSE 87–104; RESP 14–20; TEMP 36.1–38.3; O2SAT 94–99
[2022-08-19] MEDS: Albuterol/Iprat 2.5/0.5MG 3 ML AMPUL.NEB INHALE ×4 (01:02→19:44)
[2022-08-19] MEDS: Ampicillin Sodium/Sulbactam Na 3 GM in 0.9 % Sodium Chloride 100 ML IV ×4 (05:47→23:23)
[2022-08-19] MEDS: Enoxaparin Sodium 40 MG/0.4 ML SYRINGE SUBCUT (05:48)
--- NOTE | 2022-08-19 07:00 | CA_ITS ---
Transthoracic Echocardiogram Patient (Last, First, Middle): Kar Ochoa, Gender: Male Date of : 1960 Age: 62 Procedure Date: 08/19/2022 Procedure Type: Transthoracic Echocardiogram [place] [facility]: 165.1 cm Weight: 58.51 kg BSA: 1.64 m2 Heart Rate: bpm BP: 114 / 64 mmHg Forging Die Finisher: Referring MD: Jeff Callahan MD Symptoms: tn-i elevation Study Quality: Fair ECG Rhythm: Sinus Conclusions: - Normal left ventricular size, thickness, systolic function, and wall motion. The visually estimated ejection fraction is between 60-65%. Diastolic function is normal for age. - Normal right ventricular cavity size and systolic function. Findings Left Ventricle Normal left ventricular size, thickness, systolic function, and wall motion. The visually estimated ejection fraction is between 60-65%. Diastolic function is normal for age. Right Ventricle Normal right ventricular cavity size and systolic function. Atria Both atria are normal in size. Aortic Valve Normal aortic valve structure and function. There is no aortic valve stenosis. There is no aortic valve regurgitation. Mitral Valve Normal mitral valve structure and function. There is trace mitral valve regurgitation. There is no mitral valve stenosis. Pulmonic Valve The pulmonic valve is likely normal. Tricuspid Valve Normal tricuspid valve structure and function. There is trace tricuspid valve regurgitation. Normal right atrial pressure. There is no evidence of pulmonary hypertension. Great Vessels All visible segments of the aorta are normal in size. The visualized portions of the pulmonary artery and branches are normal. Venous The inferior vena cava is normal in size and collapses greater than 50% with inspiration. Pericardium/Pleural There is no evidence of pericardial effusion. Prior Study Comparison No prior study available for comparison. Measurements 2D Linear Measurements Ao Root: 2.90 2.1-3.5 cm LVOT Diam: 2.00 3.0+(-)1.3 cm Mitral Valve MV Pk E: 0.80 MV PK A: 0.67 MV Decel Time: 142.00 E/A: 1.20 E'Lateral: 15.20 E'Medial: 11.20 E/E' Med: 7.20 E/E' Lat: 5.30 PHT: 42.00 MVA PHT: 5.24 Decel [place]: 5.65 Aortic Valve AoV Pk Sandor: 1.35 AoV Mn Sandor: 0.84 AoV VTI: 0.26 AoV Pk Grad: 7.00 Aov Mn Grad: 3.00 MANDY Cont.VTI: 1.79 LVOT LVOT Pk Sandor: 0.76 LVOT Mn Sandor: 0.50 LVOT VTI: 0.15 LVOT Pk Grad: 2.00 LVOT Mn Grad: 1.00 LVOT Diam: 2.00 LVOT Area: 3.14 Diastolic Function MV Pk E: 0.80 MV Pk A: 0.67 E/A: 1.20 E'Medial: 11.20 E/E' Med: 7.20 E' Laterial: 15.20 E/E' Lat: 5.30 Right Ventricle TAPSE (mm): 22.00 TVS' Sandor: 13.00 Tricuspid Valve TR Pk Sandor: 2.19 TR Pk Grad: 19.00 RA Press: 3.00 RVSP: 22.00 Great Vessels Aorta Ao Root-2D: 2.90 2.0-3.7 cm Ao Asc: 2.50 2.1-3.4 cm Pulmonary Valve PV Pk Sandor: 1.31 Peak PV Grad: 7.00 Updated in Other Vendor System with Status of Final Jaxson Mendez MD electronically signed on 08/19/2022 3:44:12 PM with status of Final
[2022-08-19 07:04] LABS: Anion Gap 15 (12-20); Blood Urea Nitrogen 10 mg/dL (9-16); Calcium 8.3 mg/dL (8.4-10.2); Carbon Dioxide 21 mmol/L (22-29); Chloride 103 mmol/L (96-108); Creatinine Clr Calc Pharmacy 79.5; Estimated Glomerular Filt Rate > 60; Glucose Random 197 mg/dL (60-115); Potassium 4.3 mmol/L (3.3-5.1); Sodium 135 mmol/L (135-145)
[2022-08-19 08:12] LABS: Glucose, Whole Blood 189 mg/dL (60-115)
[2022-08-19] MEDS: Cholecalciferol (Vitamin D3) 25 MCG TABLET 125 MCG PO (08:49)
[2022-08-19] MEDS: Multivitamin TABLET 1 TAB PO (08:50)
[2022-08-19] MEDS: lisinopriL 2.5 MG TABLET PO (08:50)
[2022-08-19] MEDS: Erythromycin Base 0.5% Oph Oin 1 GM TUBE 1 CM EYE-BOTH ×2 (08:50→21:26)
[2022-08-19] MEDS: Gabapentin 300 MG CAPSULE PO ×2 (08:50→21:26)
[2022-08-19] MEDS: Ferrous Sulfate 324 MG TABLET.DR PO (08:50)
[2022-08-19] MEDS: Pravastatin Sodium 10 MG TABLET PO (08:50)
[2022-08-19] MEDS: 0.9 % Sodium Chloride Flush 3 ML SYRINGE IVFLUSH ×3 (08:51→23:24)
[2022-08-19] MEDS: Acetaminophen 325 MG TABLET 650 MG PO (08:53)
--- NOTE | 2022-08-19 09:25 | P.EN_ITS ---
Event Note Date of Service: 08/19/22 Event Note: Addiction consult patient seen by recovery bilingual patient support caseworker--see SUDE note reporting 1st use in over 10 years encouraged to report concerns or withdrawal sx. to clinical team RSRN will follow up ensure discharge with carissa
--- NOTE | 2022-08-19 09:28 | PM.CNCAR ---
History of Present Illness History of Present Illness Date of Service: 08/19/22 Requesting physician: Jeff Callahan / [facility] Chief complaint: Syncope Narrative: 62-year-old gentleman with syncope. He is presenting for aspiration pneumonia and hypoxia in the setting of heroin use. It appears he used heroin and then passed out. EMS gave him Narcan. Denying chest pain or shortness of breath. he is visiting from [place]. Currently on antibiotics. He is saying he is coughing. He is denying chest pain or shortness of breath. Labs and imaging reviewed. [facility] Past Medical History Medical History (Updated 08/19/22 @ 11:42 by Jaxson Mendez MD) Asthma Diabetes HIV (human immunodeficiency virus infection) HTN (hypertension) Hyperlipidemia Social History Social History Household Members: Spouse and Children Alcohol intake: never Patient Tobacco Use Status: Never used Tobacco Substance Use Type: Heroin service: No Current occupational status: employed Meds Allergies Allergy/AdvReac Type Severity Reaction Status Date / Time No Known Allergies Allergy Verified 08/18/22 01:31 Active Medications: Current Medications Acetaminophen (Acetaminophen 325 Mg Tablet) 650 mg PO Q6H PRN PRN Reason: Pain, Mild (Pain Scale 1-3) Last Admin: 08/19/22 08:53 Dose: 650 mg Albuterol/Ipratropium (Albuterol/Iprat 2.5/0.5mg 3 Ml Ampul.Neb) 3 ml INHALE Q4H [facility] Last Admin: 08/19/22 07:59 Dose: Not Given Albuterol/Ipratropium (Albuterol/Iprat 2.5/0.5mg 3 Ml Ampul.Neb) 3 ml INHALE Q4H PRN PRN Reason: Wheezing Benzonatate (Benzonatate 100 Mg Capsule) 100 mg PO TID PRN PRN Reason: Cough Last Admin: 08/18/22 06:26 Dose: 100 mg Dextrose (Dextrose 50 % 25 Gm/50 Ml Syringe) 25 gm IVPUSH Q15M PRN; Protocol PRN Reason: per Hypoglycemia Standing Ord. Enoxaparin Sodium (Enoxaparin Sodium 40 Mg/0.4 Ml Syringe) 40 mg SUBCUT Q24H [facility] Last Admin: 08/19/22 05:48 Dose: 40 mg Erythromycin (Erythromycin Base 0.5% Oph Oin 1 Gm Tube) 1 cm EYE-BOTH BID [facility] Last Admin: 08/19/22 08:50 Dose: 1 cm Ferrous Sulfate (Ferrous Sulfate 324 Mg Tablet.Dr) 324 mg PO DAILY [facility] Last Admin: 08/19/22 08:50 Dose: 324 mg Gabapentin (Gabapentin 300 Mg Capsule) 300 mg PO BID [facility] Last Admin: 08/19/22 08:50 Dose: 300 mg Glucose (Glucose Gel 15 Gm Gel..Gram.) 15 gm PO Q15M PRN; Protocol PRN Reason: per Hypoglycemia Standing Ord. Ampicillin Sodium/Sulbactam (Sodium 3 gm/ Sodium Chloride) 100 mls @ 200 mls/hr IV Q6H [facility] Last Infusion: 08/19/22 06:25 Dose: Infused Lisinopril (Lisinopril 2.5 Mg Tablet) 2.5 mg PO DAILY [facility]; Protocol Last Admin: 08/19/22 08:50 Dose: 2.5 mg Melatonin (Melatonin 3 Mg Tablet) 6 mg PO BEDTIME PRN PRN Reason: Insomnia Multivitamins/Vitamin C (Multivitamin Tablet) 1 tab PO DAILY [facility] Last Admin: 08/19/22 08:50 Dose: 1 tab Non-Formulary Medication (Qlslwby-Lre-Iqxvz-Tenof Alafen [Genvoya]) 1 tab PO DAILY [facility] Ondansetron HCl (Ondansetron Hcl 4 Mg/2 Ml Vial) 4 mg IVPUSH Q8H PRN PRN Reason: Nausea and Vomiting Last Admin: 08/18/22 06:26 Dose: 4 mg Pharmacy Consult (Consult Rx Perform Med Rec) 1 each MISCELLANE ONCE PRN PRN Reason: Consult order Pravastatin Sodium (Pravastatin Sodium 10 Mg Tablet) 10 mg PO DAILY [facility] Last Admin: 08/19/22 08:50 Dose: 10 mg Sodium Chloride (0.9 % Sodium Chloride Flush 3 Ml Syringe) 3 ml IVFLUSH QSHIFT [facility] Last Admin: 08/19/22 08:51 Dose: 3 ml Temazepam (Temazepam 15 Mg Capsule) 30 mg PO BEDTIME PRN PRN Reason: Insomnia Vitamin D (Cholecalciferol (Vitamin D3) 25 Mcg Tablet) 125 mcg PO DAILY [facility] Last Admin: 08/19/22 08:49 Dose: 125 mcg Home Medications Medication Instructions Recorded Confirmed Last Taken Type cholecalciferol (vitamin D3) 125 125 mcg PO DAILY 08/18/22 08/18/22 08/17/22 History mcg (5,000 unit) tablet (Vitamin D3) elviteg 150 mg-cob 150 mg-emtricit 1 tab PO DAILY 08/18/22 08/18/22 08/17/22 History 200 mg-tenofo alafenam 10 mg tablet (Genvoya) ferrous sulfate 325 mg (65 mg 325 mg PO DAILY 08/18/22 08/18/22 08/17/22 History iron) tablet (Iron (ferrous sulfate)) gabapentin 300 mg capsule 300 mg PO BID 08/18/22 08/18/22 08/17/22 History glipizide 5 mg tablet 1 tab PO DAILY 08/18/22 08/18/22 08/17/22 History lisinopril 2.5 mg tablet 1 tab PO DAILY 08/18/22 08/18/22 08/17/22 History metformin 1,000 mg tablet 1 tab PO BID 08/18/22 08/18/22 08/17/22 History pravastatin 10 mg tablet 1 tab PO DAILY 08/18/22 08/18/22 08/17/22 History temazepam 30 mg capsule 1 cap PO BEDTIME PRN Insomnia 08/18/22 08/18/22 Unknown History vitamin B complex 1 cap PO DAILY 08/18/22 08/18/22 08/17/22 History Physical Exam Vital Signs: Vital Signs: Last Vital Signs Temp 100.9 F H 08/19/22 07:18 Pulse 98 08/19/22 07:18 Resp 18 08/19/22 07:18 BP 108/63 08/19/22 07:18 Pulse Ox 97 08/19/22 07:18 O2 Del Method 08/19/22 07:18 O2 Flow Rate 4 08/19/22 07:18 Oxygen Flow Rate 10 08/18/22 01:01 BMI result Body Mass Index 21.5 GENERAL APPEARANCE: in no acute distress, On supplemental oxygen. NECK: no carotid bruit, no jugular venous distention. SKIN: no suspicious lesions, warm and dry. HEART: no murmurs, regular rate and rhythm. LUNGS: clear to auscultation bilaterally. ABDOMEN: soft, nontender. EXTREMITIES: no edema. PERIPHERAL PULSES: equal. NEUROLOGIC: No gross deficits, AAO X 3 Objective Labs and Meds Result diagrams: 08/18/22 06:58 08/19/22 06:24 Lab results: Laboratory Results - last 24 hr 08/18/22 08/18/22 08/18/22 06:58 10:35 11:35 Sodium Potassium Chloride Carbon Dioxide Anion Gap BUN Creatinine Estim Creat Clear Calc Estimated GFR POC Glucose 222 H Random Glucose Calcium Troponin I High Sens 28.7 D Procalcitonin 0.36 08/18/22 08/18/22 08/18/22 13:39 17:05 20:01 Sodium Potassium Chloride Carbon Dioxide Anion Gap BUN Creatinine Estim Creat Clear Calc Estimated GFR POC Glucose 193 H 183 H Random Glucose Calcium Troponin I High Sens 30.9 Procalcitonin 08/19/22 08/19/22 06:24 07:21 Sodium 135 Potassium 4.3 Chloride 103 Carbon Dioxide 21 L Anion Gap 15 BUN 10 Creatinine 0.82 Estim Creat Clear Calc 79.5 Estimated GFR > 60 POC Glucose 189 H Random Glucose 197 H Calcium 8.3 L Troponin I High Sens Procalcitonin Assessment and Plan (1) Aspiration pneumonia: Status: Acute (2) Elevated troponin: Status: Acute Plan 62-year-old gentleman with elevated troponin due to type 2 CT secondary to aspiration pneumonia secondary to heroin use. Denying chest pain or shortness of breath. No preceding symptoms before had on use. Check echocardiogram to assess for any wall motion abnormalities. If echo is normal then of further workup is required. He plans to return to [facility] and can follow-up with Cardiology there. Thank you for allowing me to participate in the care of your patient. Please feel free to contact me if you have any questions. Procedures Date of Service Date of Service: 08/19/22
--- NOTE | 2022-08-19 09:48 | MHC.CM.PN ---
CM MET WITH PT. LIVES WITH EX- AND SON IN SINGLE FAMILY HOME IN [place], HERE FOR A . NO PREVIOUS SERVICES OR DME. NO HCP BUT WILLING TO DO ONE WHILE HERE . [facility] X4 PCP IN [place], UNSURE OF NAME.CM WILL FOLLOW FOR DC NEEDS. DP: EX- AND SON WILL TRANSPORT HOME, BACK TO [place].
--- NOTE | 2022-08-19 10:19 | P.CDIC_ITS ---
CDI Concurrent Query Documentation Clarification: PHYSICIAN'S DOCUMENTATION REQUEST Date of Query: 08/19/22 1020 Patient Name: Kar Ochoa Admit Date: 08/18/22 Dear Doctor, Please review the following and provide your response in the progress notes. Clinical Indicators: Risk Factors/Clinical Indicators/Treatments PMH: Asthma Albuterol (Duoneb) 3ml inhale Q4H Based on the above, please clarify in the Progress Notes further specificity regarding the type and acuity of the asthma: Type: * Mild intermittent - less than 2x/week * Mild persistent - more than 2x/week but not daily * Moderate persistent - daily and may restrict physical activity * Severe persistent - throughout the day with frequent attacks, limiting activities * Other ? please specify * Unable to determine Acuity: * With acute exacerbation * With status asthmaticus * Uncomplicated * Unable to determine Use of terms such as suspected, likely, concern for, or probable (associated with a specific diagnosis that is being evaluated, monitored, or treated as if it exists) are acceptable and can be coded in the inpatient setting, when documented at the time of discharge. Thank you, Ngoc Bolanos [facility], CDIS Extension: [phone] Please use your independent medical judgment in providing your response. THIS QUERY IS PART OF THE PERMANENT MEDICAL RECORD Provider Response: Other Other Diagnosis: m.i.a.
--- NOTE | 2022-08-19 10:19 | MHC.CDI.CONC ---
CDI Concurrent Query Documentation Clarification: PHYSICIAN'S DOCUMENTATION REQUEST Date of Query: 08/19/22 1020 Patient Name: Kar Ochoa Admit Date: 08/18/22 Dear Doctor, Please review the following and provide your response in the progress notes. Clinical Indicators: Risk Factors/Clinical Indicators/Treatments PMH: Asthma Albuterol (Duoneb) 3ml inhale Q4H Based on the above, please clarify in the Progress Notes further specificity regarding the type and acuity of the asthma: Type: Mild intermittent - less than 2x/week Mild persistent - more than 2x/week but not daily Moderate persistent - daily and may restrict physical activity Severe persistent - throughout the day with frequent attacks, limiting activities Other ? please specify Unable to determine Acuity: With acute exacerbation With status asthmaticus Uncomplicated Unable to determine Use of terms such as suspected, likely, concern for, or probable (associated with a specific diagnosis that is being evaluated, monitored, or treated as if it exists) are acceptable and can be coded in the inpatient setting, when documented at the time of discharge. Thank you, Ngoc Bolanos [facility], [facility]IS Extension: [phone] Please use your independent medical judgment in providing your response. THIS QUERY IS PART OF THE PERMANENT MEDICAL RECORD Provider Response: Other Other Diagnosis: m.i.a.
[2022-08-19] MEDS: guaiFENesin DM 100/10/5 ML 5 ML SYRUP PO ×2 (10:26→21:32)
--- NOTE | 2022-08-19 10:48 | P.PNIM_ITS ---
Subjective Subjective Date of Service: 08/19/22 Interval History: coughing, dyspneic febrile to 102.6@19:58 admits only did a small amount of heroin prior to syncopizing and hasn't used daily in over 13 years no chest pain Review of Systems Review of Systems: Yes all other systems are reviewed and are negative Physical Exam Vital Signs: Vital Signs: Last Vital Signs Temp 98.2 F 08/19/22 10:26 Pulse 98 08/19/22 07:18 Resp 18 08/19/22 07:18 BP 108/63 08/19/22 07:18 Pulse Ox 97 08/19/22 07:18 O2 Del Method 08/19/22 07:18 O2 Flow Rate 4 08/19/22 07:18 Oxygen Flow Rate 10 08/18/22 01:01 BMI result Body Mass Index 21.5 Gen: in no acute distress on 4L O2 HEENT: sclera anicteric, moist mucus membranes Neck: supple Lungs: bilateral insp crackles at base, exp wheezes throughout Heart: regular rate and rhythm, no murmurs Abd: soft, non-tender, non-distended Ext: no edema Skin: warm/well-perfused Neuro: alert and oriented x3, no focal findings Psych: appropriate affect Objective Data Active Medications Acetaminophen (Acetaminophen 325 Mg Tablet) 650 mg PO Q6H PRN PRN Reason: Pain, Mild (Pain Scale 1-3) Last Admin: 08/19/22 08:53 Dose: 650 mg Documented By: DON Albuterol/Ipratropium (Albuterol/Iprat 2.5/0.5mg 3 Ml Ampul.Neb) 3 ml INHALE Q4H [facility] Last Admin: 08/19/22 07:59 Dose: Not Given Documented By: SATYA Non-Admin Reason: Patient Asleep Albuterol/Ipratropium (Albuterol/Iprat 2.5/0.5mg 3 Ml Ampul.Neb) 3 ml INHALE Q4H PRN PRN Reason: Wheezing Benzonatate (Benzonatate 100 Mg Capsule) 100 mg PO TID PRN PRN Reason: Cough Last Admin: 08/18/22 06:26 Dose: 100 mg Documented By: ROMA Benzonatate (Benzonatate 100 Mg Capsule) 200 mg PO TID PRN PRN Reason: coughin Dextrose (Dextrose 50 % 25 Gm/50 Ml Syringe) 25 gm IVPUSH Q15M PRN; Protocol PRN Reason: per Hypoglycemia Standing Ord. Enoxaparin Sodium (Enoxaparin Sodium 40 Mg/0.4 Ml Syringe) 40 mg SUBCUT Q24H [facility] Last Admin: 08/19/22 05:48 Dose: 40 mg Documented By: KARLA Erythromycin (Erythromycin Base 0.5% Oph Oin 1 Gm Tube) 1 cm EYE-BOTH BID [facility] Last Admin: 08/19/22 08:50 Dose: 1 cm Documented By: DON Ferrous Sulfate (Ferrous Sulfate 324 Mg Tablet.Dr) 324 mg PO DAILY [facility] Last Admin: 08/19/22 08:50 Dose: 324 mg Documented By: DON Gabapentin (Gabapentin 300 Mg Capsule) 300 mg PO BID [facility] Last Admin: 08/19/22 08:50 Dose: 300 mg Documented By: DON Glucose (Glucose Gel 15 Gm Gel..Gram.) 15 gm PO Q15M PRN; Protocol PRN Reason: per Hypoglycemia Standing Ord. Guaifenesin/Dextromethorphan (Guaifenesin Dm 100/10/5 Ml 5 Ml Syrup) 5 ml PO Q4H PRN PRN Reason: couhg Last Admin: 08/19/22 10:26 Dose: 5 ml Documented By: DON Ampicillin Sodium/Sulbactam (Sodium 3 gm/ Sodium Chloride) 100 mls @ 200 mls/hr IV Q6H [facility] Last Infusion: 08/19/22 06:25 Dose: 200 mls/hr Documented By: KARLA Lisinopril (Lisinopril 2.5 Mg Tablet) 2.5 mg PO DAILY [facility]; Protocol Last Admin: 08/19/22 08:50 Dose: 2.5 mg Documented By: DON Melatonin (Melatonin 3 Mg Tablet) 6 mg PO BEDTIME PRN PRN Reason: Insomnia Multivitamins/Vitamin C (Multivitamin Tablet) 1 tab PO DAILY [facility] Last Admin: 08/19/22 08:50 Dose: 1 tab Documented By: DON Non-Formulary Medication (Qcgaqng-Ozi-Vskzi-Tenof Alafen [Genvoya]) 1 tab PO DAILY [facility] Ondansetron HCl (Ondansetron Hcl 4 Mg/2 Ml Vial) 4 mg IVPUSH Q8H PRN PRN Reason: Nausea and Vomiting Last Admin: 08/18/22 06:26 Dose: 4 mg Documented By: ROMA Pharmacy Consult (Consult Rx Perform Med Rec) 1 each MISCELLANE ONCE PRN PRN Reason: Consult order Pravastatin Sodium (Pravastatin Sodium 10 Mg Tablet) 10 mg PO DAILY [facility] Last Admin: 08/19/22 08:50 Dose: 10 mg Documented By: DON Prednisone (Prednisone 20 Mg Tablet) 20 mg PO DAILY [facility] Sodium Chloride (0.9 % Sodium Chloride Flush 3 Ml Syringe) 3 ml IVFLUSH QSHIFT [facility] Last Admin: 08/19/22 08:51 Dose: 3 ml Documented By: DON Temazepam (Temazepam 15 Mg Capsule) 30 mg PO BEDTIME PRN PRN Reason: Insomnia Vitamin D (Cholecalciferol (Vitamin D3) 25 Mcg Tablet) 125 mcg PO DAILY [facility] Last Admin: 08/19/22 08:49 Dose: 125 mcg Documented By: DON Labs CBC & Chem 7: 08/18/22 06:58 08/19/22 06:24 Labs: Laboratory Results - last 24 hr 08/18/22 08/18/22 08/18/22 10:35 11:35 13:39 Anion Gap Estim Creat Clear Calc Estimated GFR POC Glucose 222 H Random Glucose Calcium Troponin I High Sens 28.7 D 30.9 08/18/22 08/18/22 08/19/22 17:05 20:01 06:24 Anion Gap 15 Estim Creat Clear Calc 79.5 Estimated GFR > 60 POC Glucose 193 H 183 H Random Glucose 197 H Calcium 8.3 L Troponin I High Sens 08/19/22 07:21 Anion Gap Estim Creat Clear Calc Estimated GFR POC Glucose 189 H Random Glucose Calcium Troponin I High Sens Microbiology Microbiology Results: Microbiology 08/18/22 01:43 Blood Culture - Preliminary Blood - Venous No growth after 24 hours. 08/18/22 01:40 Blood Culture - Preliminary Blood - Venous No growth after 24 hours. Assessment and Plan (1) Opioid use: Status: Acute (2) HTN (hypertension): Status: Acute Plan d#2 62[facility] [place], DM2, HTN, HLD brought after unreponsive episode after which he was given naloxone and then admitted to heroin use after initial denial, developed hypoxia + sepsis # acute hypoxic resp failure - wean O2 as tolerated # sepsis due to PNA - suspected aspiration, on d#2 amp/sulbactam, trend PCT, follow BCx, check RPP # mild intermittent asthma with acute exacerbation - short course of prednisone 20 mg/d [boosted by cobicistat in Genvoya], standing/prn nebs # Tn-I elevation - suspect demand from sepsis, TTE + Cardiology consult pending # toxic encephalopathy due to opioid abuse # OUD - monitor for withdrawal, Addiction Medicine + CARE Team consults, ensure has naloxone upon d/c # lactic acidosis - improved with IV fluid resuscitation # DM2 with hyperglycemia, A1c 7.6 - hold OHGs, give correction-dose lispro # HTN - lisinopril # HLD - pravastatin # HIV - continue Genvoya, viral load + CD4 pending # VTE ppx: LMWH In my clinical judgment, the patient requires continued hospitalization for the following reasons: hypoxia, IV ABX Quality Stroke Does the patient have a stroke diagnosis?: No VTE Prior VTE?: No VTE Risk Level:: Medical - moderate - high VTE Device Contraindication: Treatment Not Indicated VTE Drug Contraindication: N/A - Med Ordered
[2022-08-19] MEDS: predniSONE 20 MG TABLET PO (11:54)
--- NOTE | 2022-08-19 14:34 | MHC.RECOVRN ---
T/W met w/ pt, pt alert, lying in bed. Pt states plans to go back to [place] upon d/c. Pt reports not interested in MAT, recovery supports at this time. Pt states it was one time. Pt reports remorse about using. Pt states plans to continue w/ recovery upon d/c.
[2022-08-19 16:28] LABS: Glucose, Whole Blood 329 mg/dL (60-115)
[2022-08-19 17:02] LABS: Adenovirus PCR Not Detected (Not Detect.); Bordetella pertussis PCR Not Detected (Not Detect.)
[2022-08-19 17:03] LABS: Bordetella parapertussis PCR Not Detected (Not Detect.); Chlamydia pneumoniae PCR Not Detected (Not Detect.); Coronavirus 229E PCR Not Detected (Not Detect.); Coronavirus HKU1 PCR Not Detected (Not Detect.); Coronavirus NL63 PCR Not Detected (Not Detect.); Coronavirus OC43 PCR Not Detected (Not Detect.); Human metapneumovirus PCR Not Detected (Not Detect.); Influenza A PCR Not Detected (Not Detect.); Influenza B PCR Not Detected (Not Detect.); Mycoplasma pneumoniae PCR Not Detected (Not Detect.); Parainfluenza 1 PCR Not Detected (Not Detect.); Parainfluenza 2 PCR Not Detected (Not Detect.); Parainfluenza 3 PCR Not Detected (Not Detect.); Parainfluenza 4 PCR Not Detected (Not Detect.); RSV PCR Not Detected (Not Detect.); Rhino/Enterovirus PCR Not Detected (Not Detect.); SARS-CoV-2 PCR Not Detected (Not Detect.)
[2022-08-19 20:19] LABS: Glucose, Whole Blood 344 mg/dL (60-115)
[2022-08-19] MEDS: Benzonatate 100 MG CAPSULE 200 MG PO (21:32)
[2022-08-20] VITALS (13 sets, daily range): BP systolic 104–117; BP diastolic 57–73; PULSE 75–90; RESP 16–20; TEMP 36.2–36.8; O2SAT 97–99
[2022-08-20] MEDS: Albuterol/Iprat 2.5/0.5MG 3 ML AMPUL.NEB INHALE ×7 (00:56→23:57)
[2022-08-20] MEDS: guaiFENesin DM 100/10/5 ML 5 ML SYRUP PO ×3 (05:08→21:47)
[2022-08-20] MEDS: Enoxaparin Sodium 40 MG/0.4 ML SYRINGE SUBCUT (05:08)
[2022-08-20] MEDS: Ampicillin Sodium/Sulbactam Na 3 GM in 0.9 % Sodium Chloride 100 ML IV ×4 (05:08→23:38)
[2022-08-20 05:14] LABS: Glucose, Whole Blood 221 mg/dL (60-115)
[2022-08-20 08:12] LABS: Glucose, Whole Blood 148 mg/dL (60-115)
[2022-08-20] MEDS: lisinopriL 2.5 MG TABLET PO (08:39)
[2022-08-20] MEDS: Cholecalciferol (Vitamin D3) 25 MCG TABLET 125 MCG PO (08:39)
[2022-08-20] MEDS: Multivitamin TABLET 1 TAB PO (08:40)
[2022-08-20] MEDS: predniSONE 20 MG TABLET PO (08:40)
[2022-08-20] MEDS: Gabapentin 300 MG CAPSULE PO ×2 (08:40→21:47)
[2022-08-20] MEDS: Pravastatin Sodium 10 MG TABLET PO (08:40)
[2022-08-20] MEDS: 0.9 % Sodium Chloride Flush 3 ML SYRINGE IVFLUSH ×3 (08:40→21:48)
[2022-08-20] MEDS: Erythromycin Base 0.5% Oph Oin 1 GM TUBE 1 CM EYE-BOTH ×2 (08:40→21:47)
[2022-08-20] MEDS: Ferrous Sulfate 324 MG TABLET.DR PO (08:40)
[2022-08-20 08:51] LABS: Hematocrit 34.4 % (42.0-52.0); Hemoglobin 11.4 g/dl (14.0-18.0); Mean Corpuscular HGB Conc 33.1 g/dl (31.0-36.0); Mean Corpuscular Hemoglobin 29.8 pg (27.0-33.0); Mean Corpuscular Volume 90.1 fL (80.0-98.0); Platelet Count 118 X10*3/uL (160-400); Red Blood Count 3.82 X10*6/uL (4.60-5.80); Red Cell Distribution Width 12.8 % (11.0-16.0); White Blood Count 7.5 X10*3/uL (4.8-10.8)
[2022-08-20 09:09] LABS: Anion Gap 17 (12-20); Blood Urea Nitrogen 12 mg/dL (9-16); Carbon Dioxide 20 mmol/L (22-29); Chloride 105 mmol/L (96-108); Creatinine Clr Calc Pharmacy 80.5; Estimated Glomerular Filt Rate > 60; Glucose Random 161 mg/dL (60-115); Potassium 4.1 mmol/L (3.3-5.1); Sodium 138 mmol/L (135-145)
[2022-08-20 11:20] LABS: Glucose, Whole Blood 278 mg/dL (60-115)
--- NOTE | 2022-08-20 12:05 | P.PNIM_ITS ---
Subjective Subjective Date of Service: 08/20/22 Interval History: breathing improved but still wheezing and on O2 This history was taken in [place] from the patient. Review of Systems Review of Systems: Yes all other systems are reviewed and are negative Physical Exam Vital Signs: Vital Signs: Last Vital Signs Temp 97.9 F 08/20/22 11:36 Pulse 85 08/20/22 11:40 Resp 17 08/20/22 11:40 BP 108/70 08/20/22 11:36 Pulse Ox 99 08/20/22 11:36 O2 Del Method 08/20/22 11:36 O2 Flow Rate 4 08/20/22 11:36 Oxygen Flow Rate 10 08/18/22 01:01 BMI result Body Mass Index 21.5 Gen: in no acute distress HEENT: sclera anicteric, moist mucus membranes Neck: supple Lungs: bilateral insp crackles at base, exp wheezes throughout Heart: regular rate and rhythm, no murmurs Abd: soft, non-tender, non-distended Ext: no edema Skin: warm/well-perfused Neuro: alert and oriented x3, no focal findings Psych: appropriate affect Objective Data Active Medications Acetaminophen (Acetaminophen 325 Mg Tablet) 650 mg PO Q6H PRN PRN Reason: Pain, Mild (Pain Scale 1-3) Last Admin: 08/19/22 08:53 Dose: 650 mg Documented By: DON Albuterol/Ipratropium (Albuterol/Iprat 2.5/0.5mg 3 Ml Ampul.Neb) 3 ml INHALE Q4H PRN PRN Reason: Wheezing Albuterol/Ipratropium (Albuterol/Iprat 2.5/0.5mg 3 Ml Ampul.Neb) 3 ml INHALE RQ4H [facility] Last Admin: 08/20/22 11:42 Dose: 3 ml Documented By: MAURIZIORICAnjum Benzonatate (Benzonatate 100 Mg Capsule) 100 mg PO TID PRN PRN Reason: Cough Last Admin: 08/18/22 06:26 Dose: 100 mg Documented By: ROMA Benzonatate (Benzonatate 100 Mg Capsule) 200 mg PO TID PRN PRN Reason: coughin Last Admin: 08/19/22 21:32 Dose: 200 mg Documented By: EYADTEKJames Dextrose (Dextrose 50 % 25 Gm/50 Ml Syringe) 25 gm IVPUSH Q15M PRN; Protocol PRN Reason: per Hypoglycemia Standing Ord. Enoxaparin Sodium (Enoxaparin Sodium 40 Mg/0.4 Ml Syringe) 40 mg SUBCUT Q24H [facility] Last Admin: 08/20/22 05:08 Dose: 40 mg Documented By: TRACEY Erythromycin (Erythromycin Base 0.5% Oph Oin 1 Gm Tube) 1 cm EYE-BOTH BID [facility] Last Admin: 08/20/22 08:40 Dose: 1 cm Documented By: DON Ferrous Sulfate (Ferrous Sulfate 324 Mg Tablet.Dr) 324 mg PO DAILY [facility] Last Admin: 08/20/22 08:40 Dose: 324 mg Documented By: DON Gabapentin (Gabapentin 300 Mg Capsule) 300 mg PO BID [facility] Last Admin: 08/20/22 08:40 Dose: 300 mg Documented By: ODN Glucose (Glucose Gel 15 Gm Gel..Gram.) 15 gm PO Q15M PRN; Protocol PRN Reason: per Hypoglycemia Standing Ord. Guaifenesin/Dextromethorphan (Guaifenesin Dm 100/10/5 Ml 5 Ml Syrup) 5 ml PO Q4H PRN PRN Reason: couhg Last Admin: 08/20/22 08:38 Dose: 5 ml Documented By: DON Ampicillin Sodium/Sulbactam (Sodium 3 gm/ Sodium Chloride) 100 mls @ 200 mls/hr IV Q6H [facility] Last Infusion: 08/20/22 06:04 Dose: 200 mls/hr Documented By: TRACEY Lisinopril (Lisinopril 2.5 Mg Tablet) 2.5 mg PO DAILY [facility]; Protocol Last Admin: 08/20/22 08:39 Dose: 2.5 mg Documented By: DON Melatonin (Melatonin 3 Mg Tablet) 6 mg PO BEDTIME PRN PRN Reason: Insomnia Multivitamins/Vitamin C (Multivitamin Tablet) 1 tab PO DAILY [facility] Last Admin: 08/20/22 08:40 Dose: 1 tab Documented By: DON Patient Own Med ( Znjbkug-Uyw-Blqlb- Tenof Alafen [ Genvoya] 150-150-200 -10 Mg Table 1 tab PO DAILY [facility] Last Admin: 08/20/22 08:39 Dose: 1 tab Documented By: DON Ondansetron HCl (Ondansetron Hcl 4 Mg/2 Ml Vial) 4 mg IVPUSH Q8H PRN PRN Reason: Nausea and Vomiting Last Admin: 08/18/22 06:26 Dose: 4 mg Documented By: ROMA Pharmacy Consult (Consult Rx Perform Med Rec) 1 each MISCELLANE ONCE PRN PRN Reason: Consult order Pravastatin Sodium (Pravastatin Sodium 10 Mg Tablet) 10 mg PO DAILY [facility] Last Admin: 08/20/22 08:40 Dose: 10 mg Documented By: DON Prednisone (Prednisone 20 Mg Tablet) 20 mg PO DAILY [facility] Last Admin: 08/20/22 08:40 Dose: 20 mg Documented By: DON Sodium Chloride (0.9 % Sodium Chloride Flush 3 Ml Syringe) 3 ml IVFLUSH QSHIFT [facility] Last Admin: 08/20/22 08:40 Dose: 3 ml Documented By: DON Temazepam (Temazepam 15 Mg Capsule) 30 mg PO BEDTIME PRN PRN Reason: Insomnia Vitamin D (Cholecalciferol (Vitamin D3) 25 Mcg Tablet) 125 mcg PO DAILY [facility] Last Admin: 08/20/22 08:39 Dose: 125 mcg Documented By: DON Labs CBC & Chem 7: 08/20/22 07:52 08/20/22 07:52 Labs: Laboratory Results - last 24 hr 08/19/22 08/19/22 08/19/22 12:08 14:23 16:24 MCV MCH MCHC RDW Plt Count MPV Absolute Nucleated RBC Nucleated RBC % (auto) Anion Gap Estim Creat Clear Calc Estimated GFR POC Glucose 221 H 329 H Random Glucose Calcium C-Reactive Protein Procalcitonin Respiratory Panel Romano See Note Adenovirus (Rapid PCR) Not Detected B.pert (TEM-PCR) Not Detected B.parapertussis DNA PCR Not Detected C. pneumoniae DNA (PCR) Not Detected Coronavirus OC43 (PCR) Not Detected Coronavirus HKU1 (PCR) Not Detected Coronavirus 229E (PCR) Not Detected Coronavirus NL63 (PCR) Not Detected Human Metapneumovir PCR Not Detected Influenza A (RT-PCR) Not Detected Influenza B (RT-PCR) Not Detected M. pneumoniae (PCR) Not Detected Parainfluenza 1 (PCR) Not Detected Parainfluenza 2 (PCR) Not Detected Parainfluenza 3 (PCR) Not Detected Parainfluenza 4 (PCR) Not Detected RSV (PCR) Not Detected Entero/Rhino (PCR) Not Detected SARS-CoV-2 RNA (RT-PCR) Not Detected 08/19/22 08/20/22 08/20/22 20:11 07:52 07:52 MCV 90.1 MCH 29.8 MCHC 33.1 RDW 12.8 Plt Count 118 L MPV 11.0 Absolute Nucleated RBC 0.000 Nucleated RBC % (auto) 0.0 Anion Gap Estim Creat Clear Calc Estimated GFR POC Glucose 344 H Random Glucose Calcium C-Reactive Protein Procalcitonin 0.90 Respiratory Panel Romano Adenovirus (Rapid PCR) B.pert (TEM-PCR) B.parapertussis DNA PCR C. pneumoniae DNA (PCR) Coronavirus OC43 (PCR) Coronavirus HKU1 (PCR) Coronavirus 229E (PCR) Coronavirus NL63 (PCR) Human Metapneumovir PCR Influenza A (RT-PCR) Influenza B (RT-PCR) M. pneumoniae (PCR) Parainfluenza 1 (PCR) Parainfluenza 2 (PCR) Parainfluenza 3 (PCR) Parainfluenza 4 (PCR) RSV (PCR) Entero/Rhino (PCR) SARS-CoV-2 RNA (RT-PCR) 08/20/22 08/20/22 08/20/22 07:52 08:04 11:15 MCV MCH MCHC RDW Plt Count MPV Absolute Nucleated RBC Nucleated RBC % (auto) Anion Gap 17 Estim Creat Clear Calc 80.5 Estimated GFR > 60 POC Glucose 148 H 278 H Random Glucose 161 H Calcium 9.0 D C-Reactive Protein 10.30 H Procalcitonin Respiratory Panel Romano Adenovirus (Rapid PCR) B.pert (TEM-PCR) B.parapertussis DNA PCR C. pneumoniae DNA (PCR) Coronavirus OC43 (PCR) Coronavirus HKU1 (PCR) Coronavirus 229E (PCR) Coronavirus NL63 (PCR) Human Metapneumovir PCR Influenza A (RT-PCR) Influenza B (RT-PCR) M. pneumoniae (PCR) Parainfluenza 1 (PCR) Parainfluenza 2 (PCR) Parainfluenza 3 (PCR) Parainfluenza 4 (PCR) RSV (PCR) Entero/Rhino (PCR) SARS-CoV-2 RNA (RT-PCR) TTE (08/19/22) - Normal left ventricular size, thickness, systolic function, and wall motion. The visually estimated ejection fraction is between 60-65%.? Diastolic function is normal for age. ? - Normal right ventricular cavity size and systolic function.? ? Microbiology Microbiology Results: Microbiology 08/18/22 01:43 Blood Culture - Preliminary Blood - Venous No growth after 48 hours. 08/18/22 01:40 Blood Culture - Preliminary Blood - Venous No growth after 48 hours. Assessment and Plan (1) Opioid use: Status: Acute (2) HTN (hypertension): Status: Acute Plan d#3 62yo M visiting from [place], PMHx of HIV, OUD, DM2, HTN, HLD brought after unreponsive episode after which he was given naloxone and then admitted to heroin use after initial denial, developed hypoxia + sepsis # acute hypoxic resp failure - wean O2 as tolerated # sepsis due to PNA - suspected aspiration, on d#3 amp/sulbactam, trend PCT, follow BCx, RPP negative # mild intermittent asthma with acute exacerbation - short course of prednisone 20 mg/d [boosted by cobicistat in Genvoya] d#2/5, standing/prn nebs # Tn-I elevation - suspect demand from sepsis, TTE normal, Cardiology consulted- outpt f/u in [place] # toxic encephalopathy due to opioid abuse # OUD - monitor for withdrawal, Addiction Medicine + CARE Team consults, ensure has naloxone upon d/c # lactic acidosis - improved with IV fluid resuscitation # DM2 with hyperglycemia, A1c 7.6 - hold OHGs, give correction-dose lispro # HTN - lisinopril # HLD - pravastatin # HIV - continue Genvoya, viral load + CD4 pending # VTE ppx: LMWH In my clinical judgment, the patient requires continued hospitalization for the following reasons: hypoxia, IV ABX Quality Stroke Does the patient have a stroke diagnosis?: No VTE Prior VTE?: No VTE Risk Level:: Medical - moderate - high VTE Device Contraindication: Treatment Not Indicated VTE Drug Contraindication: N/A - Med Ordered
[2022-08-20 15:42] LABS: Absolute CD3 Count 257 cells/uL (840-3060); Absolute CD4 Count 93 cells/uL (490-1740); Absolute CD8 Count 165 cells/uL (180-1170); Absolute Lymphocytes 341 cells/uL (850-3900); CD4 CD8 Ratio 0.56 (0.86-5.00); Percent CD3 Cells 75 % (57-85); Percent CD4 Cells 27 % (30-61); Percent CD8 Cells 49 % (12-42)
[2022-08-20] MEDS: Benzonatate 100 MG CAPSULE 200 MG PO (21:47)
[2022-08-20] MEDS: Throat Lozenge, Medicated LOZENGE 1 LOZENGE MUCOUS MEM ×2 (21:47→23:39)
[2022-08-21] VITALS (12 sets, daily range): BP systolic 103–143; BP diastolic 55–91; PULSE 64–95; RESP 12–19; TEMP 36.3–36.9; O2SAT 97–100
[2022-08-21] MEDS: guaiFENesin DM 100/10/5 ML 5 ML SYRUP PO ×2 (03:32→10:21)
[2022-08-21] MEDS: Throat Lozenge, Medicated LOZENGE 1 LOZENGE MUCOUS MEM (03:32)
[2022-08-21] MEDS: Ampicillin Sodium/Sulbactam Na 3 GM in 0.9 % Sodium Chloride 100 ML IV (05:13)
[2022-08-21] MEDS: Enoxaparin Sodium 40 MG/0.4 ML SYRINGE SUBCUT (05:13)
[2022-08-21 07:56] LABS: Glucose, Whole Blood 182 mg/dL (60-115)
[2022-08-21] MEDS: Albuterol/Iprat 2.5/0.5MG 3 ML AMPUL.NEB INHALE ×5 (08:13→23:09)
[2022-08-21 08:59] LABS: Hematocrit 33.6 % (42.0-52.0); Hemoglobin 11.2 g/dl (14.0-18.0); Mean Corpuscular HGB Conc 33.3 g/dl (31.0-36.0); Mean Corpuscular Hemoglobin 30.1 pg (27.0-33.0); Mean Corpuscular Volume 90.3 fL (80.0-98.0); Mean Platelet Volume 10.4 fL (9.4-12.4); Platelet Count 138 X10*3/uL (160-400); Red Blood Count 3.72 X10*6/uL (4.60-5.80); Red Cell Distribution Width 12.7 % (11.0-16.0); White Blood Count 5.7 X10*3/uL (4.8-10.8)
--- NOTE | 2022-08-21 09:11 | MHC.CM.PN ---
Male 62 DX Syncope DP Return to [place] family transport. Patient requiring IV ABX and not ready to discharge.
[2022-08-21 09:40] LABS: Alanine Aminotransferase 43 U/L (0-40); Albumin Level 3.7 g/dL (3.5-5.0); Alkaline Phosphatase 65 U/L (39-117); Anion Gap 14 (12-20); Aspartate Amino Transferase 23 U/L (5-37); Bilirubin Total 0.7 mg/dL (0.0-1.0); Blood Urea Nitrogen 14 mg/dL (9-16); Calcium 9.1 mg/dL (8.4-10.2); Carbon Dioxide 23 mmol/L (22-29); Chloride 107 mmol/L (96-108); Creatinine Clr Calc Pharmacy 72.4; Estimated Glomerular Filt Rate > 60; Glucose Random 284 mg/dL (60-115); Lactate Dehydrogenase 102 U/L (118-273); Potassium 3.8 mmol/L (3.3-5.1); Sodium 140 mmol/L (135-145); Total Protein 7.1 g/dL (6.5-8.0)
[2022-08-21] MEDS: Sulfamethoxazole/Trimethoprim 320 MG in Dextrose 5 % 500 ML 225 MG IV ×2 (09:54→17:22)
[2022-08-21] MEDS: Erythromycin Base 0.5% Oph Oin 1 GM TUBE 1 CM EYE-BOTH ×2 (09:56→21:50)
[2022-08-21] MEDS: Cholecalciferol (Vitamin D3) 25 MCG TABLET 125 MCG PO (09:56)
[2022-08-21] MEDS: Multivitamin TABLET 1 TAB PO (09:56)
[2022-08-21] MEDS: Gabapentin 300 MG CAPSULE PO ×2 (09:56→21:50)
[2022-08-21] MEDS: Ferrous Sulfate 324 MG TABLET.DR PO (09:56)
[2022-08-21] MEDS: 0.9 % Sodium Chloride Flush 3 ML SYRINGE IVFLUSH ×2 (09:57→17:23)
[2022-08-21] MEDS: Pravastatin Sodium 10 MG TABLET PO (09:57)
[2022-08-21] MEDS: Benzonatate 100 MG CAPSULE 200 MG PO (10:21)
[2022-08-21 11:37] LABS: Glucose, Whole Blood 294 mg/dL (60-115)
--- NOTE | 2022-08-21 13:15 | HO.PM.IMPN ---
Subjective Subjective Date of Service: 08/21/22 Interval History: still coughing a lot and still requiring oxygen dyspneic in retrospect, has had dry cough on and off for months he saw his ID doctor in [place] 1 month ago and was told his viral load was undetectable but that his CD4 count was low ; but he doesn't know how low never on PCP prophylaxis in past, no history of opportunistic infection Review of Systems Review of Systems: Yes all other systems are reviewed and are negative Physical Exam Vital Signs: Vital Signs: Last Vital Signs Temp 97.7 F 08/21/22 11:56 Pulse 81 08/21/22 12:14 Resp 18 08/21/22 12:14 BP 110/65 08/21/22 11:56 Pulse Ox 98 08/21/22 11:56 O2 Del Method 08/21/22 11:56 O2 Flow Rate 4 08/21/22 11:56 Oxygen Flow Rate 10 08/18/22 01:01 BMI result Body Mass Index 21.5 Gen: in no acute d istress HEENT: scl era anicteric, artur st mucus membranes Neck: supple Lung s: bilateral insp crackles at base, exp wheezes throug hout Heart: regula r rate and rhythm, no murmurs Abd: s oft, non-tender, n on-distended Ext: no edema Skin: war m/well-perfused Ne uro: alert and gentry ented x3, no focal findings Psych: a ppropriate affect Objective Data Active Medications Acetaminophen (Acetaminophen 325 Mg Tablet) 650 mg PO Q6H PRN PRN Reason: Pain, Mild (Pain Scale 1-3) Last Admin: 08/19/22 08:53 Dose: 650 mg Documented By: DON Albuterol/Ipratropium (Albuterol/Iprat 2.5/0.5mg 3 Ml Ampul.Neb) 3 ml INHALE Q4H PRN PRN Reason: Wheezing Albuterol/Ipratropium (Albuterol/Iprat 2.5/0.5mg 3 Ml Ampul.Neb) 3 ml INHALE RQ4H [facility] Last Admin: 08/21/22 12:11 Dose: 3 ml Documented By: AYDEN Benzocaine (Throat Lozenge, Medicated Lozenge) 1 lozenge MUCOUS MEM Q2H PRN PRN Reason: Sore Throat Last Admin: 08/21/22 03:32 Dose: 1 lozenge Documented By: TRACEY Benzonatate (Benzonatate 100 Mg Capsule) 100 mg PO TID PRN PRN Reason: Cough Last Admin: 08/18/22 06:26 Dose: 100 mg Documented By: ROMA Benzonatate (Benzonatate 100 Mg Capsule) 200 mg PO TID PRN PRN Reason: coughin Last Admin: 08/21/22 10:21 Dose: 200 mg Documented By: DANA Dextrose (Dextrose 50 % 25 Gm/50 Ml Syringe) 25 gm IVPUSH Q15M PRN; Protocol PRN Reason: per Hypoglycemia Standing Ord. Enoxaparin Sodium (Enoxaparin Sodium 40 Mg/0.4 Ml Syringe) 40 mg SUBCUT Q24H [facility] Last Admin: 08/21/22 05:13 Dose: 40 mg Documented By: TRACEY Erythromycin (Erythromycin Base 0.5% Oph Oin 1 Gm Tube) 1 cm EYE-BOTH BID [facility] Last Admin: 08/21/22 09:56 Dose: 1 cm Documented By: DANA Ferrous Sulfate (Ferrous Sulfate 324 Mg Tablet.Dr) 324 mg PO DAILY [facility] Last Admin: 08/21/22 09:56 Dose: 324 mg Documented By: DANA Gabapentin (Gabapentin 300 Mg Capsule) 300 mg PO BID [facility] Last Admin: 08/21/22 09:56 Dose: 300 mg Documented By: DANA Glucose (Glucose Gel 15 Gm Gel..Gram.) 15 gm PO Q15M PRN; Protocol PRN Reason: per Hypoglycemia Standing Ord. Guaifenesin/Dextromethorphan (Guaifenesin Dm 100/10/5 Ml 5 Ml Syrup) 5 ml PO Q4H PRN PRN Reason: couhg Last Admin: 08/21/22 10:21 Dose: 5 ml Documented By: DANA Trimethoprim/Sulfamethoxazole (320 mg/ Dextrose) 520 mls @ 225 mls/hr IV Q8H [facility] Last Infusion: 08/21/22 13:00 Dose: 0 mls/hr Documented By: DANA Insulin Human Lispro (Insulin Lispro 100 Unit/Ml 3 Ml Vial) 0 unit SUBCUT QIDACHS [facility]; Protocol Melatonin (Melatonin 3 Mg Tablet) 6 mg PO BEDTIME PRN PRN Reason: Insomnia Multivitamins/Vitamin C (Multivitamin Tablet) 1 tab PO DAILY [facility] Last Admin: 08/21/22 09:56 Dose: 1 tab Documented By: DANA Patient Own Med ( Lqiqrwy-Kot-Aiayv- Tenof Alafen [ Genvoya] 150-150-200 -10 Mg Table 1 tab PO DAILY [facility] Last Admin: 08/21/22 12:59 Dose: 1 tab Documented By: DANA Ondansetron HCl (Ondansetron Hcl 4 Mg/2 Ml Vial) 4 mg IVPUSH Q8H PRN PRN Reason: Nausea and Vomiting Last Admin: 08/18/22 06:26 Dose: 4 mg Documented By: ROMA Pharmacy Consult (Consult Rx Perform Med Rec) 1 each MISCELLANE ONCE PRN PRN Reason: Consult order Pravastatin Sodium (Pravastatin Sodium 10 Mg Tablet) 10 mg PO DAILY [facility] Last Admin: 08/21/22 09:57 Dose: 10 mg Documented By: DANA Prednisone (Prednisone 20 Mg Tablet) 40 mg PO BIDWM [facility] Stop: 08/26/22 16:59 Prednisone (Prednisone 20 Mg Tablet) 40 mg PO DAILY [facility] Stop: 08/31/22 08:59 Prednisone (Prednisone 20 Mg Tablet) 20 mg PO DAILY [facility] Stop: 09/11/22 08:15 Sodium Chloride (0.9 % Sodium Chloride Flush 3 Ml Syringe) [facility] Last Admin: 08/21/22 09:57 Dose: 3 ml Documented By: DANA Temazepam (Temazepam 15 Mg Capsule) 30 mg PO BEDTIME PRN PRN Reason: Insomnia Vitamin D (Cholecalciferol (Vitamin D3) 25 Mcg Tablet) 125 mcg PO DAILY [facility] Last Admin: 08/21/22 09:56 Dose: 125 mcg Documented By: DANA Labs CBC & Chem 7: 08/21/22 08:40 08/21/22 08:40 Labs: Laboratory Results - last 24 hr 08/18/22 08/21/22 08/21/22 10:35 07:47 08:40 MCV 90.3 MCH 30.1 MCHC 33.3 RDW 12.7 Plt Count 138 L MPV 10.4 Absolute Nucleated RBC 0.000 Nucleated RBC % (auto) 0.0 Anion Gap Estim Creat Clear Calc Estimated GFR POC Glucose 182 H Random Glucose Calcium Total Bilirubin AST ALT Alkaline Phosphatase Lactate Dehydrogenase Total Protein Albumin Lymphocyte Subset Cmmnt TNP Total Lymphocytes 341 L % CD3 Cells 75 Absolute CD3 Count 257 L % CD4 Cells 27 L Absolute CD4 Count 93 L CD4/CD8 Ratio 0.56 L % CD8 Cells 49 H Absolute CD8 Count 165 L 08/21/22 08/21/22 08:40 11:17 MCV MCH MCHC RDW Plt Count MPV Absolute Nucleated RBC Nucleated RBC % (auto) Anion Gap 14 Estim Creat Clear Calc 72.4 Estimated GFR > 60 POC Glucose 294 H Random Glucose 284 H D Calcium 9.1 Total Bilirubin 0.7 AST 23 ALT 43 H Alkaline Phosphatase 65 Lactate Dehydrogenase 102 L Total Protein 7.1 Albumin 3.7 Lymphocyte Subset Cmmnt Total Lymphocytes % CD3 Cells Absolute CD3 Count % CD4 Cells Absolute CD4 Count CD4/CD8 Ratio % CD8 Cells Absolute CD8 Count Assessment and Plan (1) Opioid use: Status: Acute (2) HTN (hypertension): Status: Acute Plan d#4 62yo M visiting from [place], PMHx of HIV, OUD, DM2, HTN, HLD brought after unreponsive episode after which he was given naloxone and then admitted to heroin use after initial denial, developed hypoxia + sepsis # sepsis due to PNA - at 1st, aspiration suspected but at this point, with CD4 of 93, PJP is much more likely and as such will d/c amp/sulbactam and change to high-dose IV TMP/SMP. ID consultation. send sputum for PJP PCR. will give prednisone taper as per PJP regimen of 40 mg bid x 5d, then 40 mg daily x 5d, then 20 mg daily x 11d # acute hypoxic resp failure - wean O2 as tolerated # mild intermittent asthma with acute exacerbation - prednisone, nebs # Tn-I elevation - suspect demand from sepsis, TTE normal, Cardiology consulted- outpt f/u in [place] # toxic encephalopathy due to opioid abuse - no withdrawal, no daily use, Addiction Medicine + CARE Team consults, ensure has naloxone upon d/c # lactic acidosis - improved with IV fluid resuscitation # DM2 with hyperglycemia, A1c 7.6 - hold OHGs, give correction-dose lispro # HTN - hold lisinopril given use of high-dose TMP/SMX # HLD - pravastatin # HIV/AIDS - continue Genvoya. CD4 93. viral load pending. # VTE ppx: LMWH In my clinical judgment, the patient requires continued hospitalization for the following reasons: hypoxia, IV ABX Quality Stroke Does the patient have a stroke diagnosis?: No VTE Prior VTE?: No VTE Risk Level:: Medical - moderate - high VTE Device Contraindication: Treatment Not Indicated VTE Drug Contraindication: N/A - Med Ordered
[2022-08-21 16:22] LABS: Glucose, Whole Blood 356 mg/dL (60-115)
[2022-08-21] MEDS: Insulin Lispro 100 UNIT/ML 3 ML VIAL SUBCUT ×2 (17:21→21:50)
[2022-08-21] MEDS: predniSONE 20 MG TABLET 40 MG PO (17:23)
[2022-08-21 19:17] LABS: HIV RNA PCR Qn Copies NOT DETECTED copies/mL (NOT DETECTED); HIV RNA PCR Qn Log Copies NOT DETECTED (NOT DETECTED)
[2022-08-21 20:06] LABS: Glucose, Whole Blood 213 mg/dL (60-115)
[2022-08-22] VITALS (10 sets, daily range): BP systolic 100–115; BP diastolic 50–70; PULSE 67–99; RESP 15–20; TEMP 36.1–36.8; O2SAT 95–98
[2022-08-22] MEDS: 0.9 % Sodium Chloride Flush 3 ML SYRINGE IVFLUSH ×4 (00:58→20:07)
[2022-08-22] MEDS: Sulfamethoxazole/Trimethoprim 320 MG in Dextrose 5 % 500 ML 225 MG IV ×3 (00:58→16:28)
[2022-08-22] MEDS: Enoxaparin Sodium 40 MG/0.4 ML SYRINGE SUBCUT (05:57)
[2022-08-22 06:28] LABS: Hematocrit 34.8 % (42.0-52.0); Hemoglobin 11.5 g/dl (14.0-18.0); Mean Corpuscular Hemoglobin 29.6 pg (27.0-33.0); Mean Corpuscular Volume 89.7 fL (80.0-98.0); Mean Platelet Volume 10.7 fL (9.4-12.4); Platelet Count 149 X10*3/uL (160-400); Red Blood Count 3.88 X10*6/uL (4.60-5.80); Red Cell Distribution Width 12.3 % (11.0-16.0); White Blood Count 4.3 X10*3/uL (4.8-10.8)
[2022-08-22 07:40] LABS: Glucose, Whole Blood 268 mg/dL (60-115)
[2022-08-22] MEDS: Albuterol/Iprat 2.5/0.5MG 3 ML AMPUL.NEB INHALE ×4 (08:16→20:17)
[2022-08-22] MEDS: Insulin Lispro 100 UNIT/ML 3 ML VIAL SUBCUT ×4 (08:18→21:49)
[2022-08-22] MEDS: Ferrous Sulfate 324 MG TABLET.DR PO (08:19)
[2022-08-22] MEDS: Pravastatin Sodium 10 MG TABLET PO (08:19)
[2022-08-22] MEDS: Gabapentin 300 MG CAPSULE PO ×2 (08:19→20:07)
[2022-08-22] MEDS: predniSONE 20 MG TABLET 40 MG PO ×2 (08:19→16:28)
[2022-08-22] MEDS: Cholecalciferol (Vitamin D3) 25 MCG TABLET 125 MCG PO (08:19)
[2022-08-22] MEDS: Multivitamin TABLET 1 TAB PO (08:19)
[2022-08-22] MEDS: Erythromycin Base 0.5% Oph Oin 1 GM TUBE 1 CM EYE-BOTH ×2 (08:20→20:07)
--- NOTE | 2022-08-22 10:42 | P.PNIM_ITS ---
Subjective Subjective Date of Service: 08/22/22 Interval History: Cough + hypoxia improving, along with dyspnea Review of Systems Review of Systems: Yes all other systems are reviewed and are negative Physical Exam Vital Signs: Vital Signs: Last Vital Signs Temp 97.4 F 08/22/22 07:23 Pulse 67 08/22/22 08:16 Resp 20 08/22/22 08:16 BP 115/70 08/22/22 07:23 Pulse Ox 98 08/22/22 07:23 O2 Del Method 08/22/22 07:23 O2 Flow Rate 2 08/22/22 07:23 FiO2 98 08/21/22 19:26 Oxygen Flow Rate 10 08/18/22 01:01 BMI result Body Mass Index 21.5 Gen: in no acute distress HEENT: sclera anicteric, moist mucus membranes, no thrush Neck: supple Lungs: bilateral dry inspiratory crackles Heart: regular rate and rhythm, no murmurs Abd: soft, non-tender, non-distended Ext: no edema Skin: warm/well-perfused Neuro: alert and oriented x3, no focal findings Psych: appropriate affect Objective Data Active Medications Acetaminophen (Acetaminophen 325 Mg Tablet) 650 mg PO Q6H PRN PRN Reason: Pain, Mild (Pain Scale 1-3) Last Admin: 08/19/22 08:53 Dose: 650 mg Documented By: DON Albuterol/Ipratropium (Albuterol/Iprat 2.5/0.5mg 3 Ml Ampul.Neb) 3 ml INHALE Q4H PRN PRN Reason: Wheezing Albuterol/Ipratropium (Albuterol/Iprat 2.5/0.5mg 3 Ml Ampul.Neb) 3 ml INHALE RQ4H [facility] Last Admin: 08/22/22 08:16 Dose: 3 ml Documented By: SHARONCARJames Benzocaine (Throat Lozenge, Medicated Lozenge) 1 lozenge MUCOUS MEM Q2H PRN PRN Reason: Sore Throat Last Admin: 08/21/22 03:32 Dose: 1 lozenge Documented By: EYADTEKJames Benzonatate (Benzonatate 100 Mg Capsule) 100 mg PO TID PRN PRN Reason: Cough Last Admin: 08/18/22 06:26 Dose: 100 mg Documented By: ROMA Benzonatate (Benzonatate 100 Mg Capsule) 200 mg PO TID PRN PRN Reason: coughin Last Admin: 08/21/22 10:21 Dose: 200 mg Documented By: DANA Dextrose (Dextrose 50 % 25 Gm/50 Ml Syringe) 25 gm IVPUSH Q15M PRN; Protocol PRN Reason: per Hypoglycemia Standing Ord. Enoxaparin Sodium (Enoxaparin Sodium 40 Mg/0.4 Ml Syringe) 40 mg SUBCUT Q24H [facility] Last Admin: 08/22/22 05:57 Dose: 40 mg Documented By: DEXTER Erythromycin (Erythromycin Base 0.5% Oph Oin 1 Gm Tube) 1 cm EYE-BOTH BID [facility] Last Admin: 08/22/22 08:20 Dose: 1 cm Documented By: SUNITA Ferrous Sulfate (Ferrous Sulfate 324 Mg Tablet.Dr) 324 mg PO DAILY [facility] Last Admin: 08/22/22 08:19 Dose: 324 mg Documented By: SUNITA Gabapentin (Gabapentin 300 Mg Capsule) 300 mg PO BID [facility] Last Admin: 08/22/22 08:19 Dose: 300 mg Documented By: SUNITA Glucose (Glucose Gel 15 Gm Gel..Gram.) 15 gm PO Q15M PRN; Protocol PRN Reason: per Hypoglycemia Standing Ord. Guaifenesin/Dextromethorphan (Guaifenesin Dm 100/10/5 Ml 5 Ml Syrup) 5 ml PO Q4H PRN PRN Reason: couhg Last Admin: 08/21/22 10:21 Dose: 5 ml Documented By: DANA Trimethoprim/Sulfamethoxazole (320 mg/ Dextrose) 520 mls @ 225 mls/hr IV Q8H [facility] Last Admin: 08/22/22 08:18 Dose: 225 mls/hr Documented By: SUNITA Insulin Human Lispro (Insulin Lispro 100 Unit/Ml 3 Ml Vial) 0 unit SUBCUT QIDACHS [facility]; Protocol Last Admin: 08/22/22 08:18 Dose: 6 unit Documented By: SUNITA Melatonin (Melatonin 3 Mg Tablet) 6 mg PO BEDTIME PRN PRN Reason: Insomnia Multivitamins/Vitamin C (Multivitamin Tablet) 1 tab PO DAILY [facility] Last Admin: 08/22/22 08:19 Dose: 1 tab Documented By: SUNITA Patient Own Med ( Nwakrla-Fen-Doege- Tenof Alafen [ Genvoya] 150-150-200 -10 Mg Table 1 tab PO DAILY [facility] Last Admin: 08/22/22 09:32 Dose: 1 tab Documented By: SUNITA Ondansetron HCl (Ondansetron Hcl 4 Mg/2 Ml Vial) 4 mg IVPUSH Q8H PRN PRN Reason: Nausea and Vomiting Last Admin: 08/18/22 06:26 Dose: 4 mg Documented By: ROMA Pharmacy Consult (Consult Rx Perform Med Rec) 1 each MISCELLANE ONCE PRN PRN Reason: Consult order Pravastatin Sodium (Pravastatin Sodium 10 Mg Tablet) 10 mg PO DAILY [facility] Last Admin: 08/22/22 08:19 Dose: 10 mg Documented By: SUNITA Prednisone (Prednisone 20 Mg Tablet) 40 mg PO BIDWM [facility] Stop: 08/26/22 16:59 Last Admin: 08/22/22 08:19 Dose: 40 mg Documented By: SUNITA Prednisone (Prednisone 20 Mg Tablet) 40 mg PO DAILY [facility] Stop: 08/31/22 08:59 Prednisone (Prednisone 20 Mg Tablet) 20 mg PO DAILY [facility] Stop: 09/11/22 08:15 Sodium Chloride (0.9 % Sodium Chloride Flush 3 Ml Syringe) 3 ml IVFLUSH QSHIFT [facility] Last Admin: 08/22/22 08:19 Dose: 3 ml Documented By: SUNITA Temazepam (Temazepam 15 Mg Capsule) 30 mg PO BEDTIME PRN PRN Reason: Insomnia Vitamin D (Cholecalciferol (Vitamin D3) 25 Mcg Tablet) 125 mcg PO DAILY [facility] Last Admin: 08/22/22 08:19 Dose: 125 mcg Documented By: SUNITA Labs CBC & Chem 7: 08/22/22 05:44 08/21/22 08:40 Labs: Laboratory Results - last 24 hr 08/18/22 08/18/22 08/21/22 10:35 10:35 08:40 MCV MCH MCHC RDW Plt Count MPV Absolute Nucleated RBC Nucleated RBC % (auto) POC Glucose Lymphocyte Subset Cmmnt TNP HIV-1 RNA copies/mL NOT DETECTED HIV-1 RNA logcopies/mL NOT DETECTED Pneumocystis Source Cancelled Pneumocyst jirovecii PCR Cancelled 08/21/22 08/21/22 08/21/22 11:17 16:16 20:00 MCV MCH MCHC RDW Plt Count MPV Absolute Nucleated RBC Nucleated RBC % (auto) POC Glucose 294 H 356 H* 213 H Lymphocyte Subset Cmmnt HIV-1 RNA copies/mL HIV-1 RNA logcopies/mL Pneumocystis Source Pneumocyst jirovecii PCR 08/22/22 08/22/22 05:44 07:27 MCV 89.7 MCH 29.6 MCHC 33.0 RDW 12.3 Plt Count 149 L MPV 10.7 Absolute Nucleated RBC 0.000 Nucleated RBC % (auto) 0.0 POC Glucose 268 H Lymphocyte Subset Cmmnt HIV-1 RNA copies/mL HIV-1 RNA logcopies/mL Pneumocystis Source Pneumocyst jirovecii PCR Assessment and Plan (1) Opioid use: Status: Acute (2) HTN (hypertension): Status: Acute Plan d#5 62yo M visiting from [place], PMHx of HIV, OUD, DM2, HTN, HLD brought after unreponsive episode after which he was given naloxone and then admitted to heroin use after initial denial, developed hypoxia + sepsis # sepsis due to PNA - at 1st, aspiration suspected and he was started on ampicillin-sulbactam. but then CD4 returned at 93, so switched to high-dose IV TMP/SMX 08/21/22, on d#2. sputum for PJP stain + PCR ordered. on day #2 of PJP prednisone taper of 40 mg bid x 5d, then 40 mg daily x 5d, then 20 mg daily x 11d # acute hypoxic resp failure - wean O2 as tolerated # mild intermittent asthma with acute exacerbation - prednisone as above nebs # Tn-I elevation - suspect demand from sepsis, TTE normal, Cardiology consulted- outpt f/u in [place] # toxic encephalopathy due to opioid abuse - no withdrawal, no daily use, Addiction Medicine + CARE Team consults, ensure has naloxone upon d/c # lactic acidosis - improved with IV fluid resuscitation # DM2 with hyperglycemia, A1c 7.6 - hold OHGs, give correction-dose lispro # HTN - hold lisinopril given use of high-dose TMP/SMX # HLD - pravastatin # HIV/AIDS - continue Genvoya. CD4 93- a precipitous drop from prior of 379 on 06/10/22 and 472 on 12/10/21. viral load undetectable from 08/18/22; also undetectable 06/10/22 and 12/10/21. His ID physician in [place] is Henry Van at [facility] in [place] # VTE ppx: LMWH # dispo: eventual return to home in [place]. Primary care doctor is Jatin Mancilla at [facility] in [place], [place] In my clinical judgment, the patient requires continued hospitalization for the following reasons: hypoxia, IV ABX Quality Stroke Does the patient have a stroke diagnosis?: No VTE Prior VTE?: No VTE Risk Level:: Medical - moderate - high VTE Device Contraindication: Treatment Not Indicated VTE Drug Contraindication: N/A - Med Ordered
[2022-08-22 11:37] LABS: Glucose, Whole Blood 283 mg/dL (60-115)
[2022-08-22] MEDS: Benzonatate 100 MG CAPSULE 200 MG PO ×2 (11:57→20:07)
[2022-08-22 15:59] LABS: Glucose, Whole Blood 357 mg/dL (60-115)
[2022-08-22] MEDS: Benzonatate 100 MG CAPSULE PO (16:29)
[2022-08-22 20:12] LABS: Glucose, Whole Blood 357 mg/dL (60-115)
[2022-08-23] VITALS (11 sets, daily range): BP systolic 108–131; BP diastolic 61–77; PULSE 72–111; RESP 16–20; TEMP 36.2–37.1; O2SAT 95–99
[2022-08-23] MEDS: Sulfamethoxazole/Trimethoprim 320 MG in Dextrose 5 % 500 ML 225 MG IV ×3 (00:28→15:38)
[2022-08-23] MEDS: Enoxaparin Sodium 40 MG/0.4 ML SYRINGE SUBCUT (05:00)
[2022-08-23 06:56] LABS: Hemoglobin 11.4 g/dl (14.0-18.0); Mean Corpuscular HGB Conc 34.5 g/dl (31.0-36.0); Mean Corpuscular Hemoglobin 30.4 pg (27.0-33.0); Mean Platelet Volume 11.2 fL (9.4-12.4); Platelet Count 163 X10*3/uL (160-400); Red Blood Count 3.75 X10*6/uL (4.60-5.80); Red Cell Distribution Width 12.3 % (11.0-16.0); White Blood Count 5.8 X10*3/uL (4.8-10.8)
[2022-08-23] MEDS: Albuterol/Iprat 2.5/0.5MG 3 ML AMPUL.NEB INHALE ×5 (07:21→22:53)
[2022-08-23 07:29] LABS: Alanine Aminotransferase 48 U/L (0-40); Albumin Level 3.9 g/dL (3.5-5.0); Alkaline Phosphatase 66 U/L (39-117); Anion Gap 14 (12-20); Aspartate Amino Transferase 17 U/L (5-37); Bilirubin Total 0.3 mg/dL (0.0-1.0); Blood Urea Nitrogen 18 mg/dL (9-16); Calcium 9.3 mg/dL (8.4-10.2); Carbon Dioxide 22 mmol/L (22-29); Chloride 101 mmol/L (96-108); Creatinine Clr Calc Pharmacy 59.8; Estimated Glomerular Filt Rate > 60; Glucose Random 312 mg/dL (60-115); Potassium 4.9 mmol/L (3.3-5.1); Sodium 132 mmol/L (135-145); Total Protein 7.3 g/dL (6.5-8.0)
[2022-08-23 08:10] LABS: Glucose, Whole Blood 269 mg/dL (60-115)
[2022-08-23] MEDS: Insulin Lispro 100 UNIT/ML 3 ML VIAL SUBCUT ×4 (08:23→22:04)
[2022-08-23] MEDS: 0.9 % Sodium Chloride Flush 3 ML SYRINGE IVFLUSH ×3 (08:23→22:05)
[2022-08-23] MEDS: Gabapentin 300 MG CAPSULE PO ×2 (08:24→22:04)
[2022-08-23] MEDS: Ferrous Sulfate 324 MG TABLET.DR PO (08:24)
[2022-08-23] MEDS: Multivitamin TABLET 1 TAB PO (08:24)
[2022-08-23] MEDS: Pravastatin Sodium 10 MG TABLET PO (08:24)
[2022-08-23] MEDS: Erythromycin Base 0.5% Oph Oin 1 GM TUBE 1 CM EYE-BOTH ×2 (08:24→22:04)
[2022-08-23] MEDS: Cholecalciferol (Vitamin D3) 25 MCG TABLET 125 MCG PO (08:24)
[2022-08-23] MEDS: predniSONE 20 MG TABLET 40 MG PO ×2 (08:24→16:09)
[2022-08-23 08:43] LABS: Procalcitonin 0.14 ng/mL
--- NOTE | 2022-08-23 11:14 | HO.PM.IMPN ---
Subjective Subjective Date of Service: 08/23/22 Interval History: still wheezing and coughing but dyspnea improved afebrile Review of Systems Review of Systems: Yes all other systems are reviewed and are negative Physical Exam Vital Signs: Vital Signs: Last Vital Signs Temp 97.3 F 08/23/22 11:08 Pulse 92 08/23/22 11:08 Resp 17 08/23/22 11:08 BP 108/63 08/23/22 11:08 Pulse Ox 96 08/23/22 11:08 O2 Del Method 08/23/22 11:08 O2 Flow Rate 4 08/23/22 11:08 FiO2 98 08/21/22 19:26 Oxygen Flow Rate 10 08/18/22 01:01 BMI result Body Mass Index 21.5 Gen: in no acute distress HEENT: sclera anicteric, moist mucus membranes, no thrush Neck: supple Lungs: scattered expiratory wheezes Heart: regular rate and rhythm, no murmurs Abd: soft, non-tender, non-distended Ext: no edema Skin: warm/well-perfused Neuro: alert and oriented x3, no focal findings Psych: appropriate affect Objective Data Active Medications Acetaminophen (Acetaminophen 325 Mg Tablet) 650 mg PO Q6H PRN PRN Reason: Pain, Mild (Pain Scale 1-3) Last Admin: 08/19/22 08:53 Dose: 650 mg Documented By: DON Albuterol/Ipratropium (Albuterol/Iprat 2.5/0.5mg 3 Ml Ampul.Neb) 3 ml INHALE Q4H PRN PRN Reason: Wheezing Albuterol/Ipratropium (Albuterol/Iprat 2.5/0.5mg 3 Ml Ampul.Neb) 3 ml INHALE RQ4H [facility] Last Admin: 08/23/22 07:21 Dose: 3 ml Documented By: KATHLEEN Benzocaine (Throat Lozenge, Medicated Lozenge) 1 lozenge MUCOUS MEM Q2H PRN PRN Reason: Sore Throat Last Admin: 08/21/22 03:32 Dose: 1 lozenge Documented By: EYADTEKR Benzonatate (Benzonatate 100 Mg Capsule) 100 mg PO TID PRN PRN Reason: Cough Last Admin: 08/22/22 16:29 Dose: 100 mg Documented By: SUNITA Benzonatate (Benzonatate 100 Mg Capsule) 200 mg PO TID PRN PRN Reason: coughin Last Admin: 08/22/22 20:07 Dose: 200 mg Documented By: JOE Dextrose (Dextrose 50 % 25 Gm/50 Ml Syringe) 25 gm IVPUSH Q15M PRN; Protocol PRN Reason: per Hypoglycemia Standing Ord. Enoxaparin Sodium (Enoxaparin Sodium 40 Mg/0.4 Ml Syringe) 40 mg SUBCUT Q24H [facility] Last Admin: 08/23/22 05:00 Dose: 40 mg Documented By: RENY Erythromycin (Erythromycin Base 0.5% Oph Oin 1 Gm Tube) 1 cm EYE-BOTH BID [facility] Last Admin: 08/23/22 08:24 Dose: 1 cm Documented By: NEFTALY Ferrous Sulfate (Ferrous Sulfate 324 Mg Tablet.Dr) 324 mg PO DAILY [facility] Last Admin: 08/23/22 08:24 Dose: 324 mg Documented By: NEFTALY Gabapentin (Gabapentin 300 Mg Capsule) 300 mg PO BID [facility] Last Admin: 08/23/22 08:24 Dose: 300 mg Documented By: NEFTALY Glucose (Glucose Gel 15 Gm Gel..Gram.) 15 gm PO Q15M PRN; Protocol PRN Reason: per Hypoglycemia Standing Ord. Guaifenesin/Dextromethorphan (Guaifenesin Dm 100/10/5 Ml 5 Ml Syrup) 5 ml PO Q4H PRN PRN Reason: couhg Last Admin: 08/21/22 10:21 Dose: 5 ml Documented By: DANA Trimethoprim/Sulfamethoxazole (320 mg/ Dextrose) 520 mls @ 225 mls/hr IV Q8H [facility] Last Infusion: 08/23/22 10:18 Dose: 0 mls/hr Documented By: NEFTALY Insulin Human Lispro (Insulin Lispro 100 Unit/Ml 3 Ml Vial) 0 unit SUBCUT QIDACHS [facility]; Protocol Last Admin: 08/23/22 08:23 Dose: 9 unit Documented By: NEFTALY Melatonin (Melatonin 3 Mg Tablet) 6 mg PO BEDTIME PRN PRN Reason: Insomnia Multivitamins/Vitamin C (Multivitamin Tablet) 1 tab PO DAILY [facility] Last Admin: 08/23/22 08:24 Dose: 1 tab Documented By: NEFTALY Patient Own Med ( Tcdhclz-Hrs-Idckn- Tenof Alafen [ Genvoya] 150-150-200 -10 Mg Table 1 tab PO DAILY [facility] Last Admin: 08/23/22 08:25 Dose: 1 tab Documented By: NEFTALY Ondansetron HCl (Ondansetron Hcl 4 Mg/2 Ml Vial) 4 mg IVPUSH Q8H PRN PRN Reason: Nausea and Vomiting Last Admin: 08/18/22 06:26 Dose: 4 mg Documented By: ROMA Pharmacy Consult (Consult Rx Perform Med Rec) 1 each MISCELLANE ONCE PRN PRN Reason: Consult order Pravastatin Sodium (Pravastatin Sodium 10 Mg Tablet) 10 mg PO DAILY [facility] Last Admin: 08/23/22 08:24 Dose: 10 mg Documented By: NEFTALY Prednisone (Prednisone 20 Mg Tablet) 40 mg PO BIDWM [facility] Stop: 08/26/22 16:59 Last Admin: 08/23/22 08:24 Dose: 40 mg Documented By: NEFTALY Prednisone (Prednisone 20 Mg Tablet) 40 mg PO DAILY [facility] Stop: 08/31/22 08:59 Prednisone (Prednisone 20 Mg Tablet) 20 mg PO DAILY [facility] Stop: 09/11/22 08:15 Sodium Chloride (0.9 % Sodium Chloride Flush 3 Ml Syringe) 3 ml IVFLUSH QSHIFT [facility] Last Admin: 08/23/22 08:23 Dose: 3 ml Documented By: NEFTALY Temazepam (Temazepam 15 Mg Capsule) 30 mg PO BEDTIME PRN PRN Reason: Insomnia Vitamin D (Cholecalciferol (Vitamin D3) 25 Mcg Tablet) 125 mcg PO DAILY [facility] Last Admin: 08/23/22 08:24 Dose: 125 mcg Documented By: NEFTALY Labs CBC & Chem 7: 08/23/22 06:04 08/23/22 06:04 Labs: Laboratory Results - last 24 hr 08/22/22 08/22/22 08/22/22 11:14 15:34 19:30 MCV MCH MCHC RDW Plt Count MPV Absolute Nucleated RBC Nucleated RBC % (auto) Anion Gap Estim Creat Clear Calc Estimated GFR POC Glucose 283 H 357 H* 357 H* Random Glucose Calcium Total Bilirubin AST ALT Alkaline Phosphatase Total Protein Albumin Procalcitonin 08/23/22 08/23/22 08/23/22 06:04 06:04 06:04 MCV 88.0 MCH 30.4 MCHC 34.5 RDW 12.3 Plt Count 163 MPV 11.2 Absolute Nucleated RBC 0.000 Nucleated RBC % (auto) 0.0 Anion Gap 14 Estim Creat Clear Calc 59.8 Estimated GFR > 60 POC Glucose Random Glucose 312 H Calcium 9.3 Total Bilirubin 0.3 AST 17 ALT 48 H Alkaline Phosphatase 66 Total Protein 7.3 Albumin 3.9 Procalcitonin 0.14 08/23/22 08:01 MCV MCH MCHC RDW Plt Count MPV Absolute Nucleated RBC Nucleated RBC % (auto) Anion Gap Estim Creat Clear Calc Estimated GFR POC Glucose 269 H Random Glucose Calcium Total Bilirubin AST ALT Alkaline Phosphatase Total Protein Albumin Procalcitonin Microbiology Microbiology Results: Microbiology 08/18/22 01:43 Blood Culture - Final Blood - Venous No growth after 5 days. 08/18/22 01:40 Blood Culture - Final Blood - Venous No growth after 5 days. Assessment and Plan (1) Opioid use: Status: Acute (2) HTN (hypertension): Status: Acute Plan d#6 62yo M visiting from [place], PMHx of HIV, OUD, DM2, HTN, HLD brought after unreponsive episode after which he was given naloxone and then admitted to heroin use after initial denial, developed hypoxia + sepsis # sepsis due to PNA - at first, aspiration was suspected and he was started on ampicillin-sulbactam, but then CD4 returned at 93, so I switched him to high-dose IV TMP/SMX on 08/21/22; he's on d#01/21 of PJP treatment. sputum for PJP stain + PCR requested. also on day #01/21 of PJP prednisone taper of 40 mg bid x 5d, then 40 mg daily x 5d, then 20 mg daily x 11d # acute hypoxic resp failure - wean O2 as tolerated # mild intermittent asthma with acute exacerbation - prednisone as above + nebs # Tn-I elevation - suspect demand from sepsis, TTE normal, Cardiology consulted- outpt f/u in [place] # toxic encephalopathy due to opioid abuse - no withdrawal, no daily use, Addiction Medicine + CARE Team consults, ensure has naloxone upon d/c # lactic acidosis - improved with IV fluid resuscitation # DM2 with hyperglycemia due to steroids, A1c 7.6 - hold OHGs, give correction-dose lispro- increase doses # HTN - hold lisinopril given use of high-dose TMP/SMX # HLD - pravastatin # HIV/AIDS - continue Genvoya. CD4 93- a precipitous drop from prior of 379 on 06/10/22 and 472 on 12/10/21. viral load undetectable from 08/18/22; also undetectable 06/10/22 and 12/10/21. His ID physician in [place] is Henry Van at [facility] in [place] # VTE ppx: LMWH # dispo: eventual return to home in [place]. Primary care doctor is Jatin Mancilla at [facility] in [place], [place] In my clinical judgment, the patient requires continued hospitalization for the following reasons: hypoxia, IV ABX Quality Stroke Does the patient have a stroke diagnosis?: No VTE Prior VTE?: No VTE Risk Level:: Medical - moderate - high VTE Device Contraindication: Treatment Not Indicated VTE Drug Contraindication: N/A - Med Ordered
[2022-08-23 11:56] LABS: Glucose, Whole Blood 217 mg/dL (60-115)
--- NOTE | 2022-08-23 13:27 | MHC.CM.PN ---
per rounds pt not ready for dc still on not dc ready dc plan return to [place]
[2022-08-23 15:07] LABS: Glucose, Whole Blood 376 mg/dL (60-115)
[2022-08-23 16:51] LABS: Glucose, Whole Blood 336 mg/dL (60-115)
[2022-08-23] MEDS: levoFLOXacin 750 MG TABLET PO (17:45)
[2022-08-23 20:01] LABS: Glucose, Whole Blood 229 mg/dL (60-115)
[2022-08-23] MEDS: guaiFENesin DM 100/10/5 ML 5 ML SYRUP PO (22:05)
[2022-08-23] MEDS: Throat Lozenge, Medicated LOZENGE 1 LOZENGE MUCOUS MEM (22:05)
[2022-08-23] MEDS: Benzonatate 100 MG CAPSULE 200 MG PO (22:05)
[2022-08-24] VITALS (10 sets, daily range): BP systolic 106–128; BP diastolic 65–73; PULSE 77–109; RESP 14–20; TEMP 36.4–37.2; O2SAT 95–99
[2022-08-24] MEDS: Sulfamethoxazole/Trimethoprim 320 MG in Dextrose 5 % 500 ML 225 MG IV ×3 (00:41→16:59)
[2022-08-24] MEDS: Enoxaparin Sodium 40 MG/0.4 ML SYRINGE SUBCUT (05:27)
[2022-08-24 07:19] LABS: Glucose, Whole Blood 302 mg/dL (60-115)
[2022-08-24] MEDS: Insulin Lispro 100 UNIT/ML 3 ML VIAL SUBCUT ×4 (07:32→23:18)
[2022-08-24] MEDS: 0.9 % Sodium Chloride Flush 3 ML SYRINGE IVFLUSH ×2 (07:48→16:58)
[2022-08-24] MEDS: Throat Lozenge, Medicated LOZENGE 1 LOZENGE MUCOUS MEM (07:48)
[2022-08-24] MEDS: Cholecalciferol (Vitamin D3) 25 MCG TABLET 125 MCG PO (07:48)
[2022-08-24] MEDS: Ferrous Sulfate 324 MG TABLET.DR PO (07:49)
[2022-08-24] MEDS: Multivitamin TABLET 1 TAB PO (07:49)
[2022-08-24] MEDS: predniSONE 20 MG TABLET 40 MG PO ×2 (07:49→16:58)
[2022-08-24] MEDS: Erythromycin Base 0.5% Oph Oin 1 GM TUBE 1 CM EYE-BOTH ×2 (07:50→23:18)
[2022-08-24] MEDS: Gabapentin 300 MG CAPSULE PO ×2 (07:50→23:18)
[2022-08-24] MEDS: Pravastatin Sodium 10 MG TABLET PO (07:50)
[2022-08-24] MEDS: Albuterol/Iprat 2.5/0.5MG 3 ML AMPUL.NEB INHALE ×4 (08:13→19:51)
--- NOTE | 2022-08-24 10:00 | P.PNIM_ITS ---
Subjective Subjective Date of Service: 08/24/22 Interval History: Dry cough No fever NO wheezing but still short of breath Physical Exam Vital Signs: Vital Signs: Last Vital Signs Temp 97.6 F 08/24/22 07:53 Pulse 87 08/24/22 08:14 Resp 16 08/24/22 08:14 BP 109/70 08/24/22 07:53 Pulse Ox 99 08/24/22 07:53 O2 Del Method 08/24/22 07:53 O2 Flow Rate 2 08/24/22 07:53 FiO2 98 08/21/22 19:26 Oxygen Flow Rate 10 08/18/22 01:01 BMI result Body Mass Index 21.5 Gen: in no acute d istress HEENT: scl era anicteric, artur st mucus membranes , no thrush Neck: supple Lungs: dimi nished bilaterally Heart: regular ra te and rhythm, no murmurs Abd: soft, non-tender, non-d istended Ext: no e laura Skin: warm/we ll-perfused Neuro: alert and oriente d x3, no focal fin dings Psych: appro priate affect Objective Data Active Medications Acetaminophen (Acetaminophen 325 Mg Tablet) 650 mg PO Q6H PRN PRN Reason: Pain, Mild (Pain Scale 1-3) Last Admin: 08/19/22 08:53 Dose: 650 mg Documented By: DON Albuterol/Ipratropium (Albuterol/Iprat 2.5/0.5mg 3 Ml Ampul.Neb) 3 ml INHALE Q4H PRN PRN Reason: Wheezing Albuterol/Ipratropium (Albuterol/Iprat 2.5/0.5mg 3 Ml Ampul.Neb) 3 ml INHALE RQ4H [facility] Last Admin: 08/24/22 08:13 Dose: 3 ml Documented By: MECHELLE Benzocaine (Throat Lozenge, Medicated Lozenge) 1 lozenge MUCOUS MEM Q2H PRN PRN Reason: Sore Throat Last Admin: 08/24/22 07:48 Dose: 1 lozenge Documented By: DON Benzonatate (Benzonatate 100 Mg Capsule) 100 mg PO TID PRN PRN Reason: Cough Last Admin: 08/22/22 16:29 Dose: 100 mg Documented By: SUNITA Benzonatate (Benzonatate 100 Mg Capsule) 200 mg PO TID PRN PRN Reason: coughin Last Admin: 08/23/22 22:05 Dose: 200 mg Documented By: TRACEY Dextrose (Dextrose 50 % 25 Gm/50 Ml Syringe) 25 gm IVPUSH Q15M PRN; Protocol PRN Reason: per Hypoglycemia Standing Ord. Enoxaparin Sodium (Enoxaparin Sodium 40 Mg/0.4 Ml Syringe) 40 mg SUBCUT Q24H [facility] Last Admin: 08/24/22 05:27 Dose: 40 mg Documented By: TRACEY Erythromycin (Erythromycin Base 0.5% Oph Oin 1 Gm Tube) 1 cm EYE-BOTH BID [facility] Last Admin: 08/24/22 07:50 Dose: 1 cm Documented By: DON Ferrous Sulfate (Ferrous Sulfate 324 Mg Tablet.Dr) 324 mg PO DAILY [facility] Last Admin: 08/24/22 07:49 Dose: 324 mg Documented By: DON Gabapentin (Gabapentin 300 Mg Capsule) 300 mg PO BID [facility] Last Admin: 08/24/22 07:50 Dose: 300 mg Documented By: DON Glucose (Glucose Gel 15 Gm Gel..Gram.) 15 gm PO Q15M PRN; Protocol PRN Reason: per Hypoglycemia Standing Ord. Guaifenesin/Dextromethorphan (Guaifenesin Dm 100/10/5 Ml 5 Ml Syrup) 5 ml PO Q4H PRN PRN Reason: couhg Last Admin: 08/23/22 22:05 Dose: 5 ml Documented By: TRACEY Trimethoprim/Sulfamethoxazole (320 mg/ Dextrose) 520 mls @ 225 mls/hr IV Q8H [facility] Last Admin: 08/24/22 07:48 Dose: 225 mls/hr Documented By: DON Insulin Human Lispro (Insulin Lispro 100 Unit/Ml 3 Ml Vial) 0 unit SUBCUT QIDAC HS [facility]; Protocol Last Admin: 08/24/22 07:32 Dose: 12 unit Documented By: DON Levofloxacin (Levofloxacin 750 Mg Tablet) 750 mg PO Q24H [facility] Last Admin: 08/23/22 17:45 Dose: 750 mg Documented By: SOLISARJUN Melatonin (Melatonin 3 Mg Tablet) 6 mg PO BEDTIME PRN PRN Reason: Insomnia Multivitamins/Vitamin C (Multivitamin Tablet) 1 tab PO DAILY [facility] Last Admin: 08/24/22 07:49 Dose: 1 tab Documented By: DON Ondansetron HCl (Ondansetron Hcl 4 Mg/2 Ml Vial) 4 mg IVPUSH Q8H PRN PRN Reason: Nausea and Vomiting Last Admin: 08/18/22 06:26 Dose: 4 mg Documented By: ROMA Pharmacy Consult (Consult Rx Perform Med Rec) 1 each MISCELLANE ONCE PRN PRN Reason: Consult order Pravastatin Sodium (Pravastatin Sodium 10 Mg Tablet) 10 mg PO DAILY [facility] Last Admin: 08/24/22 07:50 Dose: 10 mg Documented By: DON Prednisone (Prednisone 20 Mg Tablet) 40 mg PO BIDWM [facility] Stop: 08/26/22 16:59 Last Admin: 08/24/22 07:49 Dose: 40 mg Documented By: ODN Prednisone (Prednisone 20 Mg Tablet) 40 mg PO DAILY [facility] Stop: 08/31/22 08:59 Prednisone (Prednisone 20 Mg Tablet) 20 mg PO DAILY [facility] Stop: 09/11/22 08:15 Sodium Chloride (0.9 % Sodium Chloride Flush 3 Ml Syringe) 3 ml IVFLUSH QSHIFT [facility] Last Admin: 08/24/22 07:48 Dose: 3 ml Documented By: DON Temazepam (Temazepam 15 Mg Capsule) 30 mg PO BEDTIME PRN PRN Reason: Insomnia Vitamin D (Cholecalciferol (Vitamin D3) 25 Mcg Tablet) 125 mcg PO DAILY [facility] Last Admin: 08/24/22 07:48 Dose: 125 mcg Documented By: DON Labs CBC & Chem 7: 08/23/22 06:04 08/23/22 06:04 Labs: Laboratory Results - last 24 hr 08/23/22 08/23/22 08/23/22 11:11 12:59 15:44 POC Glucose 217 H 376 H* 336 H 08/23/22 08/24/22 19:58 07:15 POC Glucose 229 H 302 H Assessment and Plan (1) Opioid use: Status: Acute (2) HTN (hypertension): Status: Acute Plan d#7 62[facility] [place], DM2, HTN, HLD brought after unreponsive episode after which he was given naloxone and then admitted to heroin use after initial denial, developed hypoxia + sepsis # sepsis due to PNA - at first, aspiration was suspected and he was started on ampicillin-sulbactam, but then CD4 returned at 93, so I switched him to high-dose IV TMP/SMX on 08/21/22; he's on d#4 of PJP treatment. sputum for PJP stain + PCR requested. also on day #02/21 of PJP prednisone taper of 40 mg bid x 5d, then 40 mg daily x 5d, then 20 mg daily x 11d. discussed with ID yesterday and recommended adding levofloxacin; he's on d#2 of levofloxacin # acute hypoxic resp failure - wean O2 as tolerated # mild intermittent asthma with acute exacerbation - prednisone as above + nebs # Tn-I elevation - suspect demand from sepsis, TTE normal, Cardiology consulted- outpt f/u in [place] # toxic encephalopathy due to opioid abuse - no withdrawal, no daily use, Addiction Medicine + CARE Team consults, ensure has naloxone upon d/c # lactic acidosis - improved with IV fluid resuscitation # DM2 with hyperglycemia due to steroids, A1c 7.6 - hold OHGs, give correction-dose lispro- increase doses # HTN - hold lisinopril given use of high-dose TMP/SMX # HLD - pravastatin # HIV/AIDS - pt on Genvoya [not on hospital formulary] and has been getting from his own supply but he just ran out and his other bottles are in [place]. Will give Biktarvy while in hospital. - CD4 93- a precipitous drop from prior of 379 on 06/10/22 and 472 on 12/10/21 - viral load undetectable from 08/18/22; also undetectable 06/10/22 and 12/10/21 - his ID physician in [place] is Henry Van at [facility] in [place] # VTE ppx: LMWH # dispo: eventual return to home in [place]. Primary care doctor is Jatin Mancilla at [facility] in [place], [place] In my clinical judgment, the patient requires continued hospitalization for the following reasons: hypoxia, IV ABX Quality Stroke Does the patient have a stroke diagnosis?: No VTE Prior VTE?: No VTE Risk Level:: Medical - moderate - high VTE Device Contraindication: Treatment Not Indicated VTE Drug Contraindication: N/A - Med Ordered
[2022-08-24] MEDS: Bictegrav/Emtricit/Tenofov Ala TABLET 1 TAB PO (10:58)
[2022-08-24 11:24] LABS: Glucose, Whole Blood 239 mg/dL (60-115)
[2022-08-24 16:14] LABS: Glucose, Whole Blood 395 mg/dL (60-115)
[2022-08-24] MEDS: levoFLOXacin 750 MG TABLET PO (16:58)
[2022-08-24 20:21] LABS: Glucose, Whole Blood 350 mg/dL (60-115)
[2022-08-25] MEDS: Sulfamethoxazole/Trimethoprim 320 MG in Dextrose 5 % 500 ML 225 MG IV ×3 (01:52→17:10)
[2022-08-25 04:00] VITALS: BP 113/66; PULSE 81; RESP 14; TEMP 36.6; O2SAT 97
[2022-08-25] MEDS: Enoxaparin Sodium 40 MG/0.4 ML SYRINGE SUBCUT (06:44)
[2022-08-25 07:18] VITALS: BP 129/66; PULSE 76; RESP 20; TEMP 36.6; O2SAT 98
[2022-08-25 07:35] LABS: Anion Gap 16 (12-20); Blood Urea Nitrogen 22 mg/dL (9-16); Calcium 9.2 mg/dL (8.4-10.2); Carbon Dioxide 21 mmol/L (22-29); Chloride 96 mmol/L (96-108); Creatinine Clr Calc Pharmacy 56.7; Estimated Glomerular Filt Rate > 60; Glucose Random 346 mg/dL (60-115); Potassium 5.2 mmol/L (3.3-5.1); Sodium 128 mmol/L (135-145)
[2022-08-25 07:38] LABS: Hematocrit 34.7 % (42.0-52.0); Mean Corpuscular HGB Conc 34.6 g/dl (31.0-36.0); Mean Corpuscular Volume 86.8 fL (80.0-98.0); Mean Platelet Volume 11.2 fL (9.4-12.4); Platelet Count 166 X10*3/uL (160-400); Red Cell Distribution Width 12.5 % (11.0-16.0)
[2022-08-25 07:48] LABS: Glucose, Whole Blood 356 mg/dL (60-115)
[2022-08-25] MEDS: Insulin Lispro 100 UNIT/ML 3 ML VIAL SUBCUT ×4 (08:03→20:20)
[2022-08-25] MEDS: predniSONE 20 MG TABLET 40 MG PO ×2 (08:04→17:10)
[2022-08-25] MEDS: Multivitamin TABLET 1 TAB PO (08:05)
[2022-08-25] MEDS: Gabapentin 300 MG CAPSULE PO ×2 (08:05→20:17)
[2022-08-25] MEDS: Pravastatin Sodium 10 MG TABLET PO (08:05)
[2022-08-25] MEDS: Bictegrav/Emtricit/Tenofov Ala TABLET 1 TAB PO (08:05)
[2022-08-25] MEDS: Cholecalciferol (Vitamin D3) 25 MCG TABLET 125 MCG PO (08:05)
[2022-08-25] MEDS: 0.9 % Sodium Chloride Flush 3 ML SYRINGE IVFLUSH ×2 (08:05→17:09)
[2022-08-25] MEDS: Ferrous Sulfate 324 MG TABLET.DR PO (08:05)
[2022-08-25] MEDS: Erythromycin Base 0.5% Oph Oin 1 GM TUBE 1 CM EYE-BOTH ×2 (08:08→20:20)
[2022-08-25] MEDS: Albuterol/Iprat 2.5/0.5MG 3 ML AMPUL.NEB INHALE ×2 (11:10→18:50)
[2022-08-25 11:20] LABS: Glucose, Whole Blood 151 mg/dL (60-115)
[2022-08-25 11:49] VITALS: BP 119/68; PULSE 110; RESP 20; TEMP 36.6; O2SAT 97
--- NOTE | 2022-08-25 11:56 | P.PNIM_ITS ---
Subjective Subjective Date of Service: 08/25/22 Interval History: No acute issues overnight. Speaking in full sentences Review of Systems Denies chest pain Denies shortness of breath Denies nausea vomiting diarrhea Denies fever chills Physical Exam Vital Signs: Vital Signs: Last Vital Signs Temp 97.9 F 08/25/22 11:49 Pulse 110 H 08/25/22 11:49 Resp 20 08/25/22 11:49 BP 119/68 08/25/22 11:49 Pulse Ox 97 08/25/22 11:49 O2 Del Method 08/25/22 11:49 O2 Flow Rate 1 08/25/22 11:49 FiO2 96 08/24/22 19:42 Oxygen Flow Rate 10 08/18/22 01:01 BMI result Body Mass Index 21.5 Const: Other: No acute distress Resp: Other: Clear but diminished bilateral bases Cardio: Other: No S3; positive S1-S2; no S4 murmurs rubs gallops GI: Other: Soft nontender nondistended normoactive bowel sounds Extrem: Other: No edema bilaterally Objective Data Active Medications Acetaminophen (Acetaminophen 325 Mg Tablet) 650 mg PO Q6H PRN PRN Reason: Pain, Mild (Pain Scale 1-3) Last Admin: 08/19/22 08:53 Dose: 650 mg Documented By: DON Albuterol/Ipratropium (Albuterol/Iprat 2.5/0.5mg 3 Ml Ampul.Neb) 3 ml INHALE Q4H PRN PRN Reason: Wheezing Albuterol/Ipratropium (Albuterol/Iprat 2.5/0.5mg 3 Ml Ampul.Neb) 3 ml INHALE RQ 4H [facility] Last Admin: 08/25/22 11:10 Dose: 3 ml Documented By: MECHELLE Benzocaine (Throat Lozenge, Medicated Lozenge) 1 lozenge MUCOUS MEM Q2H PRN PRN Reason: Sore Throat Last Admin: 08/24/22 07:48 Dose: 1 lozenge Documented By: DON Benzonatate (Benzonatate 100 Mg Capsule) 100 mg PO TID PRN PRN Reason: Cough Last Admin: 08/22/22 16:29 Dose: 100 mg Documented By: SUNITA Benzonatate (Benzonatate 100 Mg Capsule) 200 mg PO TID PRN PRN Reason: coughin Last Admin: 08/23/22 22:05 Dose: 200 mg Documented By: TRACEY Bictegravir/Emtricitabine/Tenofovir (Bictegrav/Emtricit/Tenofov Ala Tablet) 1 tab PO DAILY [facility] Last Admin: 08/25/22 08:05 Dose: 1 tab Documented By: ALEKSANDRA Dextrose (Dextrose 50 % 25 Gm/50 Ml Syringe) 25 gm IVPUSH Q15M PRN; Protocol PRN Reason: per Hypoglycemia Standing Ord. Enoxaparin Sodium (Enoxaparin Sodium 40 Mg/0.4 Ml Syringe) 40 mg SUBCUT Q24H [facility] Last Admin: 08/25/22 06:44 Dose: 40 mg Documented By: RAPHAEL Erythromycin (Erythromycin Base 0.5% Oph Oin 1 Gm Tube) 1 cm EYE-BOTH BID [facility] Last Admin: 08/25/22 08:08 Dose: 1 cm Documented By: ALEKSANDRA Ferrous Sulfate (Ferrous Sulfate 324 Mg Tablet.Dr) 324 mg PO DAILY [facility] Last Admin: 08/25/22 08:05 Dose: 324 mg Documented By: ALEKSANDRA Gabapentin (Gabapentin 300 Mg Capsule) 300 mg PO BID [facility] Last Admin: 08/25/22 08:05 Dose: 300 mg Documented By: ALEKSANDRA Glucose (Glucose Gel 15 Gm Gel..Gram.) 15 gm PO Q15M PRN; Protocol PRN Reason: per Hypoglycemia Standing Ord. Guaifenesin/Dextromethorphan (Guaifenesin Dm 100/10/5 Ml 5 Ml Syrup) 5 ml PO Q4H PRN PRN Reason: couhg Last Admin: 08/23/22 22:05 Dose: 5 ml Documented By: TRACEY Trimethoprim/Sulfamethoxazole (320 mg/ Dextrose) 520 mls @ 225 mls/hr IV Q8H [facility] Last Infusion: 08/25/22 10:49 Dose: 0 mls/hr Documented By: ALEKSANDRA Insulin Human Lispro (Insulin Lispro 100 Unit/Ml 3 Ml Vial) 0 unit SUBCUT QIDACHS [facility]; Protocol Last Admin: 08/25/22 11:38 Dose: 5 unit Documented By: ALEKSANDRA Levofloxacin (Levofloxacin 750 Mg Tablet) 750 mg PO Q24H [facility] Last Admin: 08/24/22 16:58 Dose: 750 mg Documented By: DON Melatonin (Melatonin 3 Mg Tablet) 6 mg PO BEDTIME PRN PRN Reason: Insomnia Multivitamins/Vitamin C (Multivitamin Tablet) 1 tab PO DAILY [facility] Last Admin: 08/25/22 08:05 Dose: 1 tab Documented By: ALEKSANDRA Ondansetron HCl (Ondansetron Hcl 4 Mg/2 Ml Vial) 4 mg IVPUSH Q8H PRN PRN Reason: Nausea and Vomiting Last Admin: 08/18/22 06:26 Dose: 4 mg Documented By: ROMA Pharmacy Consult (Consult Rx Perform Med Rec) 1 each MISCELLANE ONCE PRN PRN Reason: Consult order Pravastatin Sodium (Pravastatin Sodium 10 Mg Tablet) 10 mg PO DAILY [facility] Last Admin: 08/25/22 08:05 Dose: 10 mg Documented By: ALEKSANDRA Prednisone (Prednisone 20 Mg Tablet) 40 mg PO BIDWM [facility] Stop: 08/26/22 16:59 Last Admin: 08/25/22 08:04 Dose: 40 mg Documented By: ALEKSANDRA Prednisone (Prednisone 20 Mg Tablet) 40 mg PO DAILY [facility] Stop: 08/31/22 08:59 Prednisone (Prednisone 20 Mg Tablet) 20 mg PO DAILY [facility] Stop: 09/11/22 08:15 Sodium Chloride (0.9 % Sodium Chloride Flush 3 Ml Syringe) 3 ml IVFLUSH QSHIFT [facility] Last Admin: 08/25/22 08:05 Dose: 3 ml Documented By: ALEKSANDRA Temazepam (Temazepam 15 Mg Capsule) 30 mg PO BEDTIME PRN PRN Reason: Insomnia Vitamin D (Cholecalciferol (Vitamin D3) 25 Mcg Tablet) 125 mcg PO DAILY [facility] Last Admin: 08/25/22 08:05 Dose: 125 mcg Documented By: ALEKSANDRA Labs CBC & Chem 7: 08/25/22 06:35 08/25/22 06:35 Labs: Laboratory Results - last 24 hr 08/24/22 08/24/22 08/25/22 16:07 20:11 06:35 MCV 86.8 MCH 30.0 MCHC 34.6 RDW 12.5 Plt Count 166 MPV 11.2 Absolute Nucleated RBC 0.000 Nucleated RBC % (auto) 0.0 Anion Gap Estim Creat Clear Calc Estimated GFR POC Glucose 395 H* 350 H* Random Glucose Calcium 08/25/22 08/25/22 08/25/22 06:35 07:19 11:17 MCV MCH MCHC RDW Plt Count MPV Absolute Nucleated RBC Nucleated RBC % (auto) Anion Gap 16 Estim Creat Clear Calc 56.7 Estimated GFR > 60 POC Glucose 356 H* 151 H Random Glucose 346 H Calcium 9.2 Assessment and Plan (1) Aspiration pneumonia: Status: Acute (2) HIV (human immunodeficiency virus infection): Status: Acute (3) Diabetes: Status: Acute Plan 62yo M visiting from [place], PMHx of HIV, OUD, DM2, HTN, HLD brought after unreponsive episode after which he was given naloxone and then admitted to heroin use after initial denial, developed hypoxia + sepsis 1.PNA - IV TMP/SMX (03/23)'day (03/23) prednisone taper of 40 mg bid x 5d, then 40 mg daily x 5d, then 20 mg daily x 11d. -Levaquin(01/07) 2.Toxic encephalopathy - no withdrawal, no daily use, Addiction Medicine + CARE Team consults, ensure has naloxone upon d/c 3.DM2 -lispro correctional scale -adjust as incated 4. HTN - hold lisinopril given use of high-dose TMP/SMX 5.HIV/AIDS - Biktarvy while in hospital. # VTE ppx: LMWH # dispo: eventual return to home in [place]. Primary care doctor is Jatin Mancilla at [facility] in [place], [place] Requires continued hospitalization for the hypoxia/ IV ABX Quality Stroke Does the patient have a stroke diagnosis?: No VTE Prior VTE?: No VTE Risk Level:: Medical - moderate - high VTE Device Contraindication: Treatment Not Indicated VTE Drug Contraindication: N/A - Med Ordered
[2022-08-25 15:51] VITALS: BP 129/77; PULSE 80; RESP 19; TEMP 37.1
[2022-08-25 16:58] LABS: Glucose, Whole Blood 281 mg/dL (60-115)
[2022-08-25] MEDS: levoFLOXacin 750 MG TABLET PO (17:11)
[2022-08-25 18:51] VITALS: PULSE 97; RESP 19; O2SAT 98
[2022-08-25 19:38] VITALS: BP 116/74; PULSE 122; RESP 19; TEMP 36.6
[2022-08-25 20:15] LABS: Glucose, Whole Blood 375 mg/dL (60-115)
[2022-08-25] MEDS: Benzonatate 100 MG CAPSULE 200 MG PO (20:25)
[2022-08-26] VITALS (10 sets, daily range): BP systolic 103–126; BP diastolic 61–79; PULSE 76–114; RESP 12–20; TEMP 36.1–36.8; O2SAT 96–99
[2022-08-26] MEDS: Sulfamethoxazole/Trimethoprim 320 MG in Dextrose 5 % 500 ML 225 MG IV ×3 (01:12→16:29)
[2022-08-26] MEDS: 0.9 % Sodium Chloride Flush 3 ML SYRINGE IVFLUSH ×3 (01:15→20:54)
[2022-08-26 07:07] LABS: MANUAL DIFF FLAG NO
[2022-08-26 07:24] LABS: Basophils Percent Auto 0.2 % (0-2); Eosinophils Percent Auto 0.2 % (0-4); Hematocrit 37.1 % (42.0-52.0); Hemoglobin 12.6 g/dl (14.0-18.0); Imm Gran Abs Auto 0.09 X10*3/uL (0.00-0.03); Imm Gran Pct Auto 1.6 % (0.0-0.4); Lymphocytes Absolute Auto 1.1 X10*3/uL (1.2-4.9); Lymphocytes Percent Auto 20.1 % (20-40); Mean Corpuscular Hemoglobin 29.4 pg (27.0-33.0); Mean Corpuscular Volume 86.7 fL (80.0-98.0); Mean Platelet Volume 10.9 fL (9.4-12.4); Monocytes Absolute Auto 0.6 X10*3/uL (0.1-1.2); Monocytes Percent Auto 11.2 % (2-11); Neutrophils Absolute Auto 3.7 x10*3/uL (2.0-8.3); Neutrophils Percent Auto 66.7 % (45-73); Platelet Count 175 X10*3/uL (160-400); Red Blood Count 4.28 X10*6/uL (4.60-5.80); Red Cell Distribution Width 12.5 % (11.0-16.0); White Blood Count 5.6 X10*3/uL (4.8-10.8)
[2022-08-26 07:44] LABS: Alanine Aminotransferase 66 U/L (0-40); Albumin Level 3.9 g/dL (3.5-5.0); Alkaline Phosphatase 59 U/L (39-117); Anion Gap 15 (12-20); Aspartate Amino Transferase 21 U/L (5-37); Bilirubin Total 0.3 mg/dL (0.0-1.0); Blood Urea Nitrogen 23 mg/dL (9-16); Calcium 9.4 mg/dL (8.4-10.2); Carbon Dioxide 23 mmol/L (22-29); Chloride 95 mmol/L (96-108); Creatinine Clr Calc Pharmacy 54.3; Estimated Glomerular Filt Rate > 60; Glucose Fasting 318 mg/dL (60-99); Potassium 5.1 mmol/L (3.3-5.1); Sodium 128 mmol/L (135-145); Total Protein 7.4 g/dL (6.5-8.0)
[2022-08-26 08:10] LABS: Glucose, Whole Blood 276 mg/dL (60-115)
[2022-08-26] MEDS: Insulin Lispro 100 UNIT/ML 3 ML VIAL SUBCUT ×4 (08:42→20:53)
[2022-08-26] MEDS: Cholecalciferol (Vitamin D3) 25 MCG TABLET 125 MCG PO (08:42)
[2022-08-26] MEDS: Ferrous Sulfate 324 MG TABLET.DR PO (08:43)
[2022-08-26] MEDS: Pravastatin Sodium 10 MG TABLET PO (08:43)
[2022-08-26] MEDS: Multivitamin TABLET 1 TAB PO (08:43)
[2022-08-26] MEDS: Gabapentin 300 MG CAPSULE PO ×2 (08:43→20:53)
[2022-08-26] MEDS: Bictegrav/Emtricit/Tenofov Ala TABLET 1 TAB PO (08:43)
[2022-08-26] MEDS: predniSONE 20 MG TABLET 40 MG PO (08:43)
[2022-08-26] MEDS: Erythromycin Base 0.5% Oph Oin 1 GM TUBE 1 CM EYE-BOTH ×2 (08:45→20:53)
[2022-08-26 11:21] LABS: Glucose, Whole Blood 274 mg/dL (60-115)
[2022-08-26] MEDS: Albuterol/Iprat 2.5/0.5MG 3 ML AMPUL.NEB INHALE ×2 (11:41→15:12)
--- NOTE | 2022-08-26 13:59 | P.PNIM_ITS ---
Subjective Subjective Date of Service: 08/26/22 Interval History: Slowly improving however still with an O2 requirement Review of Systems Denies chest pain Denies shortness of breath Denies nausea vomiting diarrhea Denies fever chills Physical Exam Vital Signs: Vital Signs: Last Vital Signs Temp 97.5 F 08/26/22 11:51 Pulse 105 H 08/26/22 12:50 Resp 17 08/26/22 11:51 BP 126/79 08/26/22 11:51 Pulse Ox 97 08/26/22 12:50 O2 Del Method 08/26/22 11:51 O2 Flow Rate 2 08/26/22 11:51 FiO2 97 08/25/22 19:38 Oxygen Flow Rate 10 08/18/22 01:01 BMI result Body Mass Index 21.5 Const: Other: No acute distress Resp: Other: Clear but diminished bilateral bases Cardio: Other: No S3; positive S1-S2; no S4 murmurs rubs gallops GI: Other: Soft nontender nondistended normoactive bowel sounds Extrem: Other: No edema bilaterally Objective Data Active Medications Acetaminophen (Acetaminophen 325 Mg Tablet) 650 mg PO Q6H PRN PRN Reason: Pain, Mild (Pain Scale 1-3) Last Admin: 08/19/22 08:53 Dose: 650 mg Documented By: DON Albuterol/Ipratropium (Albuterol/Iprat 2.5/0.5mg 3 Ml Ampul.Neb) 3 ml INHALE Q4H PRN PRN Reason: Wheezing Albuterol/Ipratropium (Albuterol/Iprat 2.5/0.5mg 3 Ml Ampul.Neb) 3 ml INHALE RQ4H [facility] Last Admin: 08/26/22 11:41 Dose: 3 ml Documented By: MECHELLE Benzocaine (Throat Lozenge, Medicated Lozenge) 1 lozenge MUCOUS MEM Q2H PRN PRN Reason: Sore Throat Last Admin: 08/24/22 07:48 Dose: 1 lozenge Documented By: DON Benzonatate (Benzonatate 100 Mg Capsule) 100 mg PO TID PRN PRN Reason: Cough Last Admin: 08/22/22 16:29 Dose: 100 mg Documented By: SUNITA Benzonatate (Benzonatate 100 Mg Capsule) 200 mg PO TID PRN PRN Reason: coughin Last Admin: 08/25/22 20:25 Dose: 200 mg Documented By: JOE Bictegravir/Emtricitabine/Tenofovir (Bictegrav/Emtricit/Tenofov Ala Tablet) 1 tab PO DAILY [facility] Last Admin: 08/26/22 08:43 Dose: 1 tab Documented By: EARL Dextrose (Dextrose 50 % 25 Gm/50 Ml Syringe) 25 gm IVPUSH Q15M PRN; Protocol PRN Reason: per Hypoglycemia Standing Ord. Enoxaparin Sodium (Enoxaparin Sodium 40 Mg/0.4 Ml Syringe) 40 mg SUBCUT Q24H [facility] Last Admin: 08/26/22 05:44 Dose: Not Given Documented By: JOE Non-Admin Reason: Patient Refused Erythromycin (Erythromycin Base 0.5% Oph Oin 1 Gm Tube) 1 cm EYE-BOTH BID [facility] Last Admin: 08/26/22 08:45 Dose: 1 cm Documented By: EARL Ferrous Sulfate (Ferrous Sulfate 324 Mg Tablet.Dr) 324 mg PO DAILY [facility] Last Admin: 08/26/22 08:43 Dose: 324 mg Documented By: EARL Gabapentin (Gabapentin 300 Mg Capsule) 300 mg PO BID [facility] Last Admin: 08/26/22 08:43 Dose: 300 mg Documented By: EARL Glucose (Glucose Gel 15 Gm Gel..Gram.) 15 gm PO Q15M PRN; Protocol PRN Reason: per Hypoglycemia Standing Ord. Guaifenesin/Dextromethorphan (Guaifenesin Dm 100/10/5 Ml 5 Ml Syrup) 5 ml PO Q4H PRN PRN Reason: couhg Last Admin: 08/23/22 22:05 Dose: 5 ml Documented By: FOSTEKJames Trimethoprim/Sulfamethoxazole (320 mg/ Dextrose) 520 mls @ 225 mls/hr IV Q8H [facility] Last Infusion: 08/26/22 11:24 Dose: 0 mls/hr Documented By: BEENA Insulin Human Lispro (Insulin Lispro 100 Unit/Ml 3 Ml Vial) 0 unit SUBCUT QIDACHS [facility]; Protocol Last Admin: 08/26/22 12:18 Dose: 10 unit Documented By: EARL Levofloxacin (Levofloxacin 750 Mg Tablet) 750 mg PO Q24H [facility] Last Admin: 08/25/22 17:11 Dose: 750 mg Documented By: ALEKSANDRA Melatonin (Melatonin 3 Mg Tablet) 6 mg PO BEDTIME PRN PRN Reason: Insomnia Multivitamins/Vitamin C (Multivitamin Tablet) 1 tab PO DAILY [facility] Last Admin: 08/26/22 08:43 Dose: 1 tab Documented By: EARL Ondansetron HCl (Ondansetron Hcl 4 Mg/2 Ml Vial) 4 mg IVPUSH Q8H PRN PRN Reason: Nausea and Vomiting Last Admin: 08/18/22 06:26 Dose: 4 mg Documented By: ROMA Pharmacy Consult (Consult Rx Perform Med Rec) 1 each MISCELLANE ONCE PRN PRN Reason: Consult order Pravastatin Sodium (Pravastatin Sodium 10 Mg Tablet) 10 mg PO DAILY [facility] Last Admin: 08/26/22 08:43 Dose: 10 mg Documented By: EARL Prednisone (Prednisone 20 Mg Tablet) 40 mg PO DAILY [facility] Stop: 08/31/22 08:59 Last Admin: 08/26/22 08:52 Dose: Not Given Documented By: EARL Non-Admin Reason: just given per old order Prednisone (Prednisone 20 Mg Tablet) 20 mg PO DAILY [facility] Stop: 09/11/22 08:15 Sodium Chloride (0.9 % Sodium Chloride Flush 3 Ml Syringe) 3 ml IVFLUSH QSHIFT [facility] Last Admin: 08/26/22 08:50 Dose: 3 ml Documented By: EARL Temazepam (Temazepam 15 Mg Capsule) 30 mg PO BEDTIME PRN PRN Reason: Insomnia Vitamin D (Cholecalciferol (Vitamin D3) 25 Mcg Tablet) 125 mcg PO DAILY [facility] Last Admin: 08/26/22 08:42 Dose: 125 mcg Documented By: EARL Labs CBC & Chem 7: 08/26/22 06:30 08/26/22 06:30 Labs: Laboratory Results - last 24 hr 08/25/22 08/25/22 08/26/22 16:51 20:10 06:30 MCV 86.7 MCH 29.4 MCHC 34.0 RDW 12.5 Plt Count 175 MPV 10.9 Immature Gran % (Auto) 1.6 H Neut % (Auto) 66.7 Lymph % (Auto) 20.1 [place] % (Auto) 11.2 H Eos % (Auto) 0.2 Baso % (Auto) 0.2 Lymph # (Auto) 1.1 L [place] # (Auto) 0.6 Eos # (Auto) 0.0 Baso # (Auto) 0.0 Abs Immat Gran (auto) 0.09 H Absolute Neuts (auto) 3.7 Absolute Nucleated RBC 0.000 Nucleated RBC % (auto) 0.0 Anion Gap Estim Creat Clear Calc Estimated GFR POC Glucose 281 H 375 H* Fasting Glucose Calcium Total Bilirubin AST ALT Alkaline Phosphatase Total Protein Albumin 08/26/22 08/26/22 08/26/22 06:30 07:31 10:58 MCV MCH MCHC RDW Plt Count MPV Immature Gran % (Auto) Neut % (Auto) Lymph % (Auto) [place] % (Auto) Eos % (Auto) Baso % (Auto) Lymph # (Auto) [place] # (Auto) Eos # (Auto) Baso # (Auto) Abs Immat Gran (auto) Absolute Neuts (auto) Absolute Nucleated RBC Nucleated RBC % (auto) Anion Gap 15 Estim Creat Clear Calc 54.3 Estimated GFR > 60 POC Glucose 276 H 274 H Fasting Glucose 318 H Calcium 9.4 Total Bilirubin 0.3 AST 21 ALT 66 H Alkaline Phosphatase 59 Total Protein 7.4 Albumin 3.9 Assessment and Plan (1) Aspiration pneumonia: Status: Acute (2) HIV (human immunodeficiency virus infection): Status: Acute Plan 62yo M visiting from [place], PMHx of HIV, OUD, DM2, HTN, HLD brought after unreponsive episode after which he was given naloxone and then admitted to heroin use after initial denial, developed hypoxia + sepsis 1.PNA - IV TMP/SMX (04/23)'day (04/23) prednisone taper of 40 mg bid x 5d, then 40 mg daily x 5d, then 20 mg daily x 11d. -Levaquin(02/07) 2.Toxic encephalopathy - no withdrawal, no daily use, Addiction Medicine + CARE Team consults, ensure has naloxone upon d/c 3.DM2 -lispro correctional scale -adjust as incated 4. HTN - hold lisinopril given use of high-dose TMP/SMX 5.HIV/AIDS - Biktarvy while in hospital. # VTE ppx: LMWH # dispo: eventual return to home in [place]. Primary care doctor is Jatin Mancilla at [facility] in [place], [place] Requires continued hospitalization for the hypoxia/ IV ABX Quality Stroke Does the patient have a stroke diagnosis?: No VTE Prior VTE?: No VTE Risk Level:: Medical - moderate - high VTE Device Contraindication: Treatment Not Indicated VTE Drug Contraindication: N/A - Med Ordered
[2022-08-26] MEDS: 0.9 % Sodium Chloride 1,000 ML 100 ML IVCONT (14:35)
[2022-08-26 16:25] LABS: Glucose, Whole Blood 318 mg/dL (60-115)
[2022-08-26] MEDS: levoFLOXacin 750 MG TABLET PO (17:35)
--- NOTE | 2022-08-26 17:40 | PC.NURSE ---
active order for pneumocystis jirovecii QI PCR. Serology called to clarify order but not sure if this is for bronchial wash or sputum. Dr Barajas messaged and is going to speak with Dr Li for verification.
[2022-08-26 20:49] LABS: Glucose, Whole Blood 321 mg/dL (60-115)
[2022-08-26] MEDS: Benzonatate 100 MG CAPSULE 200 MG PO (20:58)
[2022-08-26] MEDS: Melatonin 3 MG TABLET 6 MG PO (21:02)
[2022-08-26] MEDS: Temazepam 15 MG CAPSULE 30 MG PO (21:02)
[2022-08-27] VITALS (7 sets, daily range): BP systolic 92–122; BP diastolic 56–69; PULSE 68–107; RESP 16–18; TEMP 35.9–37; O2SAT 95–98
[2022-08-27] MEDS: Sulfamethoxazole/Trimethoprim 320 MG in Dextrose 5 % 500 ML 225 MG IV ×2 (01:13→08:33)
[2022-08-27] MEDS: Enoxaparin Sodium 40 MG/0.4 ML SYRINGE SUBCUT (05:05)
[2022-08-27 06:01] LABS: MANUAL DIFF FLAG NO
[2022-08-27 06:05] LABS: Basophils Percent Auto 0.2 % (0-2); Eosinophils Percent Auto 0.9 % (0-4); Hematocrit 33.7 % (42.0-52.0); Hemoglobin 11.7 g/dl (14.0-18.0); Imm Gran Abs Auto 0.08 X10*3/uL (0.00-0.03); Imm Gran Pct Auto 1.8 % (0.0-0.4); Lymphocytes Absolute Auto 1.5 X10*3/uL (1.2-4.9); Lymphocytes Percent Auto 32.6 % (20-40); Mean Corpuscular HGB Conc 34.7 g/dl (31.0-36.0); Mean Corpuscular Hemoglobin 30.5 pg (27.0-33.0); Mean Platelet Volume 10.3 fL (9.4-12.4); Monocytes Absolute Auto 0.5 X10*3/uL (0.1-1.2); Monocytes Percent Auto 9.9 % (2-11); Neutrophils Absolute Auto 2.5 x10*3/uL (2.0-8.3); Neutrophils Percent Auto 54.6 % (45-73); Platelet Count 165 X10*3/uL (160-400); Red Blood Count 3.83 X10*6/uL (4.60-5.80); Red Cell Distribution Width 12.8 % (11.0-16.0); White Blood Count 4.5 X10*3/uL (4.8-10.8)
[2022-08-27 06:25] LABS: Alanine Aminotransferase 71 U/L (0-40); Albumin Level 3.5 g/dL (3.5-5.0); Alkaline Phosphatase 52 U/L (39-117); Anion Gap 14 (12-20); Aspartate Amino Transferase 24 U/L (5-37); Bilirubin Total 0.3 mg/dL (0.0-1.0); Blood Urea Nitrogen 19 mg/dL (9-16); Calcium 8.9 mg/dL (8.4-10.2); Carbon Dioxide 23 mmol/L (22-29); Chloride 95 mmol/L (96-108); Creatinine Clr Calc Pharmacy 63.3; Estimated Glomerular Filt Rate > 60; Glucose Fasting 248 mg/dL (60-99); Potassium 4.1 mmol/L (3.3-5.1); Sodium 128 mmol/L (135-145); Total Protein 6.5 g/dL (6.5-8.0)
[2022-08-27 07:54] LABS: Glucose, Whole Blood 215 mg/dL (60-115)
[2022-08-27] MEDS: Bictegrav/Emtricit/Tenofov Ala TABLET 1 TAB PO (08:32)
[2022-08-27] MEDS: Ferrous Sulfate 324 MG TABLET.DR PO (08:32)
[2022-08-27] MEDS: Cholecalciferol (Vitamin D3) 25 MCG TABLET 125 MCG PO (08:32)
[2022-08-27] MEDS: Multivitamin TABLET 1 TAB PO (08:32)
[2022-08-27] MEDS: predniSONE 20 MG TABLET 40 MG PO (08:33)
[2022-08-27] MEDS: Erythromycin Base 0.5% Oph Oin 1 GM TUBE 1 CM EYE-BOTH (08:33)
[2022-08-27] MEDS: Gabapentin 300 MG CAPSULE PO ×2 (08:33→20:51)
[2022-08-27] MEDS: Pravastatin Sodium 10 MG TABLET PO (08:33)
[2022-08-27] MEDS: Insulin Lispro 100 UNIT/ML 3 ML VIAL SUBCUT ×4 (08:34→21:03)
[2022-08-27 11:24] LABS: Glucose, Whole Blood 298 mg/dL (60-115)
[2022-08-27] MEDS: 0.9 % Sodium Chloride 1,000 ML 100 ML IVCONT ×2 (12:40→23:01)
--- NOTE | 2022-08-27 13:41 | W.PM.IDCN ---
History of Present Illness Data of Consult Service Date: 08/26/22 Requesting physician: Jatin Barajas Primary Care Provider: Unknown Physician HPI Reason for consult: shortness of breath He presents with being unresponsive and short of breath. He had ingested fentanyl and heroin He has HIV and report undetectable viral load He has CD4 count of [address] chest tree in bud opacities He has received nine days antibiotics IV. He is on 2 liters nasal cannula. He reports no opportunistic infections. Review of Systems Review of Systems: Yes all other systems are reviewed and are negative [facility] Past Medical History Medical History Asthma Diabetes Ground glass opacity present on imaging of lung HIV (human immunodeficiency virus infection) HTN (hypertension) Hyperlipidemia Family History Family history: reviewed and not pertinent Social History Social History Household Members: Spouse and Children Alcohol intake: never Patient Tobacco Use Status: Never used Tobacco Substance Use Type: Heroin service: No Current occupational status: employed Meds Allergies Allergy/AdvReac Type Severity Reaction Status Date / Time No Known Allergies Allergy Verified 08/18/22 01:31 Active Medications: Current Medications Acetaminophen (Acetaminophen 325 Mg Tablet) 650 mg PO Q6H PRN PRN Reason: Pain, Mild (Pain Scale 1-3) Last Admin: 08/19/22 08:53 Dose: 650 mg Albuterol/Ipratropium (Albuterol/Iprat 2.5/0.5mg 3 Ml Ampul.Neb) 3 ml INHALE Q4H PRN PRN Reason: Wheezing Benzocaine (Throat Lozenge, Medicated Lozenge) 1 lozenge MUCOUS MEM Q2H PRN PRN Reason: Sore Throat Last Admin: 08/24/22 07:48 Dose: 1 lozenge Benzonatate (Benzonatate 100 Mg Capsule) 100 mg PO TID PRN PRN Reason: Cough Last Admin: 08/22/22 16:29 Dose: 100 mg Benzonatate (Benzonatate 100 Mg Capsule) 200 mg PO TID PRN PRN Reason: coughin Last Admin: 08/26/22 20:58 Dose: 200 mg Bictegravir/Emtricitabine/Tenofovir (Bictegrav/Emtricit/Tenofov Ala Tablet) 1 tab PO DAILY [facility] Last Admin: 08/27/22 08:32 Dose: 1 tab Dextrose (Dextrose 50 % 25 Gm/50 Ml Syringe) 25 gm IVPUSH Q15M PRN; Protocol PRN Reason: per Hypoglycemia Standing Ord. Enoxaparin Sodium (Enoxaparin Sodium 40 Mg/0.4 Ml Syringe) 40 mg SUBCUT Q24H [facility] Last Admin: 08/27/22 05:05 Dose: 40 mg Erythromycin (Erythromycin Base 0.5% Oph Oin 1 Gm Tube) 1 cm EYE-BOTH BID [facility] Last Admin: 08/27/22 08:33 Dose: 1 cm Ferrous Sulfate (Ferrous Sulfate 324 Mg Tablet.Dr) 324 mg PO DAILY [facility] Last Admin: 08/27/22 08:32 Dose: 324 mg Gabapentin (Gabapentin 300 Mg Capsule) 300 mg PO BID [facility] Last Admin: 08/27/22 08:33 Dose: 300 mg Glucose (Glucose Gel 15 Gm Gel..Gram.) 15 gm PO Q15M PRN; Protocol PRN Reason: per Hypoglycemia Standing Ord. Guaifenesin/Dextromethorphan (Guaifenesin Dm 100/10/5 Ml 5 Ml Syrup) 5 ml PO Q4H PRN PRN Reason: couhg Last Admin: 08/23/22 22:05 Dose: 5 ml Trimethoprim/Sulfamethoxazole (320 mg/ Dextrose) 520 mls @ 225 mls/hr IV Q8H [facility] Last Infusion: 08/27/22 12:48 Dose: Infused Sodium Chloride (Ns) 1,000 mls @ 100 mls/hr IVCONT .Q10H [facility] Last Admin: 08/27/22 12:40 Dose: 100 mls/hr Insulin Human Lispro (Insulin Lispro 100 Unit/Ml 3 Ml Vial) 0 unit SUBCUT QIDACHS [facility]; Protocol Last Admin: 08/27/22 11:50 Dose: 10 unit Levofloxacin (Levofloxacin 750 Mg Tablet) 750 mg PO Q24H [facility] Last Admin: 08/26/22 17:35 Dose: 750 mg Melatonin (Melatonin 3 Mg Tablet) 6 mg PO BEDTIME PRN PRN Reason: Insomnia Last Admin: 08/26/22 21:02 Dose: 6 mg Multivitamins/Vitamin C (Multivitamin Tablet) 1 tab PO DAILY [facility] Last Admin: 08/27/22 08:32 Dose: 1 tab Ondansetron HCl (Ondansetron Hcl 4 Mg/2 Ml Vial) 4 mg IVPUSH Q8H PRN PRN Reason: Nausea and Vomiting Last Admin: 08/18/22 06:26 Dose: 4 mg Pharmacy Consult (Consult Rx Perform Med Rec) 1 each MISCELLANE ONCE PRN PRN Reason: Consult order Pravastatin Sodium (Pravastatin Sodium 10 Mg Tablet) 10 mg PO DAILY [facility] Last Admin: 08/27/22 08:33 Dose: 10 mg Prednisone (Prednisone 20 Mg Tablet) 40 mg PO DAILY [facility] Stop: 08/31/22 08:59 Last Admin: 08/27/22 08:33 Dose: 40 mg Prednisone (Prednisone 20 Mg Tablet) 20 mg PO DAILY [facility] Stop: 09/11/22 08:15 Sodium Chloride (0.9 % Sodium Chloride Flush 3 Ml Syringe) 3 ml IVFLUSH QSHIFT [facility] Last Admin: 08/27/22 12:48 Dose: Not Given Vitamin D (Cholecalciferol (Vitamin D3) 25 Mcg Tablet) 125 mcg PO DAILY [facility] Last Admin: 08/27/22 08:32 Dose: 125 mcg Home Medications Medication Instructions Recorded Confirmed Last Taken Type cholecalciferol (vitamin D3) 125 125 mcg PO DAILY 08/18/22 08/18/22 08/17/22 History mcg (5,000 unit) tablet (Vitamin D3) elviteg 150 mg-cob 150 mg-emtricit 1 tab PO DAILY 08/18/22 08/18/22 08/17/22 History 200 mg-tenofo alafenam 10 mg tablet (Genvoya) ferrous sulfate 325 mg (65 mg 325 mg PO DAILY 08/18/22 08/18/22 08/17/22 History iron) tablet (Iron (ferrous sulfate)) gabapentin 300 mg capsule 300 mg PO BID 08/18/22 08/18/22 08/17/22 History glipizide 5 mg tablet 1 tab PO DAILY 08/18/22 08/18/22 08/17/22 History lisinopril 2.5 mg tablet 1 tab PO DAILY 08/18/22 08/18/22 08/17/22 History metformin 1,000 mg tablet 1 tab PO BID 08/18/22 08/18/22 08/17/22 History pravastatin 10 mg tablet 1 tab PO DAILY 08/18/22 08/18/22 08/17/22 History temazepam 30 mg capsule 1 cap PO BEDTIME PRN Insomnia 08/18/22 08/18/22 Unknown History vitamin B complex 1 cap PO DAILY 08/18/22 08/18/22 08/17/22 History Physical Exam Vital Signs: Vital Signs: Last Vital Signs Temp 96.6 F L 08/27/22 12:00 Pulse 91 08/27/22 12:00 Resp 16 08/27/22 12:00 BP 92/56 L 08/27/22 12:00 Pulse Ox 95 08/27/22 12:00 O2 Del Method 08/27/22 12:00 O2 Flow Rate 2 08/27/22 12:00 FiO2 97 08/25/22 19:38 Oxygen Flow Rate 10 08/18/22 01:01 BMI result Body Mass Index 21.5 Const: General: cooperative HEENT: Head: Yes normal to inspection Face and sinus: Yes normal facial exam Mouth: Normal oral and palatal mucosa present Teeth and gingiva: dentition normal Eyes: General: appearance normal, both eyes and all related structures Pupils: Equal, round and reactive pupils present Resp: Effort & Inspection: normal respiratory effort Cardio: Rate: regular rate Rhythm: regular rhythm GI: Palpation (GI): Soft to palpation and nontender : General: Yes no CVA tenderness Back/Spine/Pelvis: Back: no CVA tenderness Skin: General skin exam: no rashes or lesions noted Neuro: General: moves all extremities Cranial nerves: Yes Equal, round and reactive pupils present Extrem: General: Yes normal to inspection Psych: Appearance: grossly normal Results Labs CBC & Chem 7: 08/27/22 05:38 08/27/22 05:38 Labs: Short CBC 08/27/22 Range/Units 05:38 WBC 4.5 L (4.8-10.8) X10*3/uL Hgb 11.7 L (14.0-18.0) g/dl Hct 33.7 L (42.0-52.0) % Plt Count 165 (160-400) X10*3/uL BMP 08/27/22 05:38 Sodium 128 L Potassium 4.1 Chloride 95 L Carbon Dioxide 23 BUN 19 H Creatinine 1.03 Calcium 8.9 Liver Function 08/27/22 Range/Units 05:38 Total Bilirubin 0.3 (0.0-1.0) mg/dL AST 24 (5-37) U/L ALT 71 H (0-40) U/L Alkaline Phosphatase 52 (39-117) U/L Albumin 3.5 (3.5-5.0) g/dL Microbiology Microbiology Results: Microbiology 08/18/22 01:43 Blood - Venous Blood Culture - Final No growth after 5 days. 08/18/22 01:40 Blood - Venous Blood Culture - Final No growth after 5 days. Assessment and Plan (1) Ground glass opacity present on imaging of lung: Status: Acute This lung picture appears most consistent with chemical aspiration of acidic gastric contents post OD fentanyl. 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 CD4 count is low but patient may not be taking medications regularly (no viral load) I doubt he has PJP pneumonia if viral load controlled. (2) HIV (human immunodeficiency virus infection): Status: Acute (3) Accidental fentanyl overdose: Qualifiers: Encounter type: initial encounter Qualified Code(s): T40.411A - Poisoning by fentanyl or fentanyl analogs, accidental (unintentional), initial encounter Status: Acute (4) Aspiration pneumonia: Status: Acute Plan Stop IV Bactrim Po Bactrim 2 DS bid for a week steroids atypical coverage with Levaquin 7 days
--- NOTE | 2022-08-27 13:56 | HO.PM.IMPN ---
Subjective Subjective Date of Service: 08/27/22 Interval History: Feels somewhat better today but still with an O2 requirement Review of Systems Denies chest pain Denies shortness of breath Denies nausea vomiting diarrhea Denies fever chills Physical Exam Vital Signs: Vital Signs: Last Vital Signs Temp 96.6 F L 08/27/22 12:00 Pulse 91 08/27/22 12:00 Resp 16 08/27/22 12:00 BP 92/56 L 08/27/22 12:00 Pulse Ox 95 08/27/22 12:00 O2 Del Method 08/27/22 12:00 O2 Flow Rate 2 08/27/22 12:00 FiO2 97 08/25/22 19:38 Oxygen Flow Rate 10 08/18/22 01:01 BMI result Body Mass Index 21.5 Const: Other: No acute distress Resp: Other: Clear but diminished bilateral bases Cardio: Other: No S3; positive S1-S2; no S4 murmurs rubs gallops GI: Other: Soft nontender nondistended normoactive bowel sounds Extrem: Other: No edema bilaterally Objective Data Active Medications Acetaminophen (Acetaminophen 325 Mg Tablet) 650 mg PO Q6H PRN PRN Reason: Pain, Mild (Pain Scale 1-3) Last Admin: 08/19/22 08:53 Dose: 650 mg Documented By: DON Albuterol/Ipratropium (Albuterol/Iprat 2.5/0.5mg 3 Ml Ampul.Neb) 3 ml INHALE Q4H PRN PRN Reason: Wheezing Benzocaine (Throat Lozenge, Medicated Lozenge) 1 lozenge MUCOUS MEM Q2H PRN PRN Reason: Sore Throat Last Admin: 08/24/22 07:48 Dose: 1 lozenge Documented By: DON Benzonatate (Benzonatate 100 Mg Capsule) 100 mg PO TID PRN PRN Reason: Cough Last Admin: 08/22/22 16:29 Dose: 100 mg Documented By: SUNITA Benzonatate (Benzonatate 100 Mg Capsule) 200 mg PO TID PRN PRN Reason: coughin Last Admin: 08/26/22 20:58 Dose: 200 mg Documented By: ANGELA Bictegravir/Emtricitabine/Tenofovir (Bictegrav/Emtricit/Tenofov Ala Tablet) 1 tab PO DAILY [facility] Last Admin: 08/27/22 08:32 Dose: 1 tab Documented By: TOMASA Dextrose (Dextrose 50 % 25 Gm/50 Ml Syringe) 25 gm IVPUSH Q15M PRN; Protocol PRN Reason: per Hypoglycemia Standing Ord. Enoxaparin Sodium (Enoxaparin Sodium 40 Mg/0.4 Ml Syringe) 40 mg SUBCUT Q24H [facility] Last Admin: 08/27/22 05:05 Dose: 40 mg Documented By: QUETA Erythromycin (Erythromycin Base 0.5% Oph Oin 1 Gm Tube) 1 cm EYE-BOTH BID [facility] Last Admin: 08/27/22 08:33 Dose: 1 cm Documented By: TOMASA Ferrous Sulfate (Ferrous Sulfate 324 Mg Tablet.Dr) 324 mg PO DAILY [facility] Last Admin: 08/27/22 08:32 Dose: 324 mg Documented By: TOMASA Gabapentin (Gabapentin 300 Mg Capsule) 300 mg PO BID [facility] Last Admin: 08/27/22 08:33 Dose: 300 mg Documented By: TOMASA Glucose (Glucose Gel 15 Gm Gel..Gram.) 15 gm PO Q15M PRN; Protocol PRN Reason: per Hypoglycemia Standing Ord. Guaifenesin/Dextromethorphan (Guaifenesin Dm 100/10/5 Ml 5 Ml Syrup) 5 ml PO Q4H PRN PRN Reason: couhg Last Admin: 08/23/22 22:05 Dose: 5 ml Documented By: TRACEY Sodium Chloride (Ns) 1,000 mls @ 100 mls/hr IVCONT .Q10H [facility] Last Admin: 08/27/22 12:40 Dose: 100 mls/hr Documented By: TOMASA Insulin Human Lispro (Insulin Lispro 100 Unit/Ml 3 Ml Vial) 0 unit SUBCUT QIDACHS [facility]; Protocol Last Admin: 08/27/22 11:50 Dose: 10 unit Documented By: TOMASA Levofloxacin (Levofloxacin 750 Mg Tablet) 750 mg PO Q24H [facility] Last Admin: 08/26/22 17:35 Dose: 750 mg Documented By: EARL Melatonin (Melatonin 3 Mg Tablet) 6 mg PO BEDTIME PRN PRN Reason: Insomnia Last Admin: 08/26/22 21:02 Dose: 6 mg Documented By: ANGELA Multivitamins/Vitamin C (Multivitamin Tablet) 1 tab PO DAILY [facility] Last Admin: 08/27/22 08:32 Dose: 1 tab Documented By: TOMASA Ondansetron HCl (Ondansetron Hcl 4 Mg/2 Ml Vial) 4 mg IVPUSH Q8H PRN PRN Reason: Nausea and Vomiting Last Admin: 08/18/22 06:26 Dose: 4 mg Documented By: ROMA Pharmacy Consult (Consult Rx Perform Med Rec) 1 each MISCELLANE ONCE PRN PRN Reason: Consult order Pravastatin Sodium (Pravastatin Sodium 10 Mg Tablet) 10 mg PO DAILY [facility] Last Admin: 08/27/22 08:33 Dose: 10 mg Documented By: TOMASA Prednisone (Prednisone 20 Mg Tablet) 40 mg PO DAILY [facility] Stop: 08/31/22 08:59 Last Admin: 08/27/22 08:33 Dose: 40 mg Documented By: TOMASA Prednisone (Prednisone 20 Mg Tablet) 20 mg PO DAILY [facility] Stop: 09/11/22 08:15 Sodium Chloride (0.9 % Sodium Chloride Flush 3 Ml Syringe) 3 ml IVFLUSH QSHIFT [facility] Last Admin: 08/27/22 12:48 Dose: Not Given Documented By: TOMASA Non-Admin Reason: IV Running Trimethoprim/Sulfamethoxazole (Sulfamethox/Trimeth 800/160 Tablet) 1 tab PO Q12H [facility] Vitamin D (Cholecalciferol (Vitamin D3) 25 Mcg Tablet) 125 mcg PO DAILY [facility] Last Admin: 08/27/22 08:32 Dose: 125 mcg Documented By: TOMASA Labs CBC & Chem 7: 08/27/22 05:38 08/27/22 05:38 Labs: Laboratory Results - last 24 hr 08/26/22 08/26/22 08/26/22 06:30 16:09 20:44 MCV MCH MCHC RDW Plt Count MPV Immature Gran % (Auto) Neut % (Auto) Lymph % (Auto) [place] % (Auto) Eos % (Auto) Baso % (Auto) Lymph # (Auto) [place] # (Auto) Eos # (Auto) Baso # (Auto) Abs Immat Gran (auto) Absolute Neuts (auto) Absolute Nucleated RBC Nucleated RBC % (auto) Anion Gap Estim Creat Clear Calc Estimated GFR POC Glucose 318 H 321 H Fasting Glucose Calcium Total Bilirubin AST ALT Alkaline Phosphatase Total Protein Albumin Pneumocystis Source Cancelled Pneumocyst jirovecii PCR Cancelled 08/27/22 08/27/22 08/27/22 05:38 05:38 07:29 MCV 88.0 MCH 30.5 MCHC 34.7 RDW 12.8 Plt Count 165 MPV 10.3 Immature Gran % (Auto) 1.8 H Neut % (Auto) 54.6 Lymph % (Auto) 32.6 [place] % (Auto) 9.9 Eos % (Auto) 0.9 Baso % (Auto) 0.2 Lymph # (Auto) 1.5 [place] # (Auto) 0.5 Eos # (Auto) 0.0 Baso # (Auto) 0.0 Abs Immat Gran (auto) 0.08 H Absolute Neuts (auto) 2.5 Absolute Nucleated RBC 0.000 Nucleated RBC % (auto) 0.0 Anion Gap 14 Estim Creat Clear Calc 63.3 Estimated GFR > 60 POC Glucose 215 H Fasting Glucose 248 H Calcium 8.9 Total Bilirubin 0.3 AST 24 ALT 71 H Alkaline Phosphatase 52 Total Protein 6.5 Albumin 3.5 Pneumocystis Source Pneumocyst jirovecii PCR 08/27/22 11:13 MCV MCH MCHC RDW Plt Count MPV Immature Gran % (Auto) Neut % (Auto) Lymph % (Auto) [place] % (Auto) Eos % (Auto) Baso % (Auto) Lymph # (Auto) [place] # (Auto) Eos # (Auto) Baso # (Auto) Abs Immat Gran (auto) Absolute Neuts (auto) Absolute Nucleated RBC Nucleated RBC % (auto) Anion Gap Estim Creat Clear Calc Estimated GFR POC Glucose 298 H Fasting Glucose Calcium Total Bilirubin AST ALT Alkaline Phosphatase Total Protein Albumin Pneumocystis Source Pneumocyst jirovecii PCR Assessment and Plan (1) Aspiration pneumonia: Status: Acute (2) HIV (human immunodeficiency virus infection): Status: Acute Plan 62yo M visiting from [place], PMx of HIV, OUD, DM2, HTN, HLD brought after unreponsive episode after which he was given naloxone and then admitted to heroin use after initial denial, developed hypoxia + sepsis 1.PNA -DC IV BActrim; DS BID x 10 - prednisone taper of 40 mg bid x 5d, then 40 mg daily x 5d, then 20 mg daily x 11d. -Levaquin(03/09) 2.Toxic encephalopathy - no withdrawal, no daily use, Addiction Medicine + CARE Team consults, ensure has naloxone upon d/c 3.DM2 -lispro correctional scale -adjust as incated 4. HTN - hold lisinopril given use of high-dose TMP/SMX 5.HIV/AIDS - Biktarvy while in hospital. # VTE ppx: LMWH # dispo: eventual return to home in [place]. Primary care doctor is Jatin Mancilla at [facility] in [place], [place] Requires continued hospitalization for the hypoxia/ IV ABX Quality Stroke Does the patient have a stroke diagnosis?: No VTE Prior VTE?: No VTE Risk Level:: Medical - moderate - high VTE Device Contraindication: Treatment Not Indicated VTE Drug Contraindication: N/A - Med Ordered
[2022-08-27] MEDS: Lactulose 20 GM/30 ML SOLUTION 30 GM PO (14:31)
[2022-08-27 16:20] LABS: Glucose, Whole Blood 321 mg/dL (60-115)
[2022-08-27] MEDS: 0.9 % Sodium Chloride Flush 3 ML SYRINGE IVFLUSH (17:08)
[2022-08-27] MEDS: levoFLOXacin 750 MG TABLET PO (17:08)
[2022-08-27 20:19] LABS: Glucose, Whole Blood 272 mg/dL (60-115)
[2022-08-27] MEDS: guaiFENesin DM 100/10/5 ML 5 ML SYRUP PO (20:51)
[2022-08-27] MEDS: Melatonin 3 MG TABLET 6 MG PO (20:52)
[2022-08-27] MEDS: Benzonatate 100 MG CAPSULE PO (20:52)
[2022-08-27] MEDS: Sulfamethox/Trimeth 800/160 TABLET 1 TAB PO (20:53)
[2022-08-28 03:21] VITALS: BP 101/59; PULSE 72; RESP 20; TEMP 37.1; O2SAT 96
[2022-08-28] MEDS: Enoxaparin Sodium 40 MG/0.4 ML SYRINGE SUBCUT (05:51)
[2022-08-28 05:58] LABS: MANUAL DIFF FLAG NO
[2022-08-28 06:05] LABS: Eosinophils Absolute Auto 0.1 X10*3/uL (0.0-0.4); Eosinophils Percent Auto 1.3 % (0-4); Hematocrit 32.5 % (42.0-52.0); Imm Gran Abs Auto 0.09 X10*3/uL (0.00-0.03); Imm Gran Pct Auto 1.6 % (0.0-0.4); Lymphocytes Absolute Auto 1.6 X10*3/uL (1.2-4.9); Lymphocytes Percent Auto 28.6 % (20-40); Mean Corpuscular HGB Conc 33.8 g/dl (31.0-36.0); Mean Corpuscular Hemoglobin 30.4 pg (27.0-33.0); Mean Corpuscular Volume 89.8 fL (80.0-98.0); Mean Platelet Volume 10.8 fL (9.4-12.4); Monocytes Absolute Auto 0.4 X10*3/uL (0.1-1.2); Monocytes Percent Auto 7.9 % (2-11); Neutrophils Absolute Auto 3.4 x10*3/uL (2.0-8.3); Neutrophils Percent Auto 60.6 % (45-73); Platelet Count 162 X10*3/uL (160-400); Red Blood Count 3.62 X10*6/uL (4.60-5.80); Red Cell Distribution Width 12.8 % (11.0-16.0); White Blood Count 5.6 X10*3/uL (4.8-10.8)
[2022-08-28 06:20] LABS: Alanine Aminotransferase 94 U/L (0-40); Albumin Level 3.2 g/dL (3.5-5.0); Alkaline Phosphatase 49 U/L (39-117); Anion Gap 10 (12-20); Aspartate Amino Transferase 32 U/L (5-37); Bilirubin Total 0.4 mg/dL (0.0-1.0); Blood Urea Nitrogen 16 mg/dL (9-16); Calcium 8.5 mg/dL (8.4-10.2); Carbon Dioxide 21 mmol/L (22-29); Chloride 105 mmol/L (96-108); Creatinine Clr Calc Pharmacy 73.2; Estimated Glomerular Filt Rate > 60; Glucose Fasting 180 mg/dL (60-99); Potassium 4.2 mmol/L (3.3-5.1); Sodium 132 mmol/L (135-145); Total Protein 5.9 g/dL (6.5-8.0)
[2022-08-28 07:11] VITALS: BP 93/59; PULSE 71; RESP 16; TEMP 36.4; O2SAT 97
[2022-08-28 07:42] LABS: Glucose, Whole Blood 190 mg/dL (60-115)
[2022-08-28] MEDS: Insulin Lispro 100 UNIT/ML 3 ML VIAL SUBCUT ×2 (08:25→11:53)
[2022-08-28] MEDS: Bictegrav/Emtricit/Tenofov Ala TABLET 1 TAB PO (08:27)
[2022-08-28] MEDS: Ferrous Sulfate 324 MG TABLET.DR PO (08:27)
[2022-08-28] MEDS: predniSONE 20 MG TABLET 40 MG PO (08:27)
[2022-08-28] MEDS: Multivitamin TABLET 1 TAB PO (08:27)
[2022-08-28] MEDS: Cholecalciferol (Vitamin D3) 25 MCG TABLET 125 MCG PO (08:27)
[2022-08-28] MEDS: Gabapentin 300 MG CAPSULE PO (08:27)
[2022-08-28] MEDS: Sulfamethox/Trimeth 800/160 TABLET 1 TAB PO (08:33)
[2022-08-28] MEDS: Pravastatin Sodium 10 MG TABLET PO (08:33)
[2022-08-28 11:00] VITALS: BP 97/62; PULSE 75; RESP 18; TEMP 36.3; O2SAT 97
[2022-08-28 11:13] VITALS: BP 97/62; PULSE 90; O2SAT 97
[2022-08-28 11:25] LABS: Glucose, Whole Blood 286 mg/dL (60-115)
--- NOTE | 2022-08-28 13:09 | MHC.CM.PN ---
Addendum entered by Cassandra Romano 08/28/22 13:47: PT MEDICALLY CLEARED FOR DC. FAMILY WILL TRANSPORT Original Note: DP: PER MD ROUNDS, PT MAY BE DC TODAY, NO SERVICES, TO F/U WITH PCP WHEN RETURNS TO [place]. WILL CONTINUE TO FOLLOW FOR PLAN.
--- NOTE | 2022-08-28 13:36 | PM.DS ---
DS: Providers Provider Date of Service: 08/28/22 Date of admission: 08/18/22 05:11 Date of discharge: 08/28/22 Primary care physician: Unknown Physician Consults: 08/18/22 08:05 Addiction Medicine Routine Consulting Provider: Muna John Reason for consultation: heroin o/d 08/18/22 13:29 Consult to Cardiology Routine Consulting Provider: [facility] Cardiovascular Services Reason for consultation: elev tn-I; demand? 08/18/22 13:34 Consult to Care Team Routine Comment: Reason for consultation: heroin ov 08/21/22 08:12 Consult to Infectious Diseases Routine Consulting Provider: Danya Li Reason for consultation: CD97, suspect PCP pneumonia DS: Diagnosis Discharge Diagnosis (1) Aspiration pneumonia: Status: Acute (2) HIV (human immunodeficiency virus infection): Status: Acute DS: Summary Hospital Course Hospital Course: 62-year-old male, resident of [place] with pertinent history of HIV, opioid use disorder, [id number] diabetes mellitus, essential hypertension, hyperlipidemia who was brought to the emergency department after he was found unresponsive.? Patient does not know why he is in the hospital and has no memory of what happened.? States he was visiting family in the area for a .? As per records, patient was found unresponsive on bedroom floor with copious amounts of emesis.? Upon EMS arrival, patient was hypoxemic in the 80s.? He woke up after 2 mg of IV Narcan but was confused.? Patient initially denied drug use but later stated that he used heroin prior to being passed out.? No seizure activity reported.? Patient does endorse shortness of breath but denies fever, chills, chest discomfort, abdominal pain, changes in urinary or bowel habits.? States he was clean for 25 years until he snorted heroin today. Hospital course Patient admitted to general medical floor and covered broadly given HIV history. Initially had a oxygen requirement but over the next several days was able be weaned to room air. He was given steroids since admission and will be sent home on a steroid taper along with 2 weeks of Bactrim DS and Levaquin. He can follow-up with his PCP upon return to home Time Spent with Patient Time attestation: Total time spent providing and/or coordinating discharge services: Discharge coordination time: Greater than 30 minutes Quality: Safe Use of Opioids Does Pt have an Active Cancer Diagnosis on the Problem List?: No Quality: Stroke Does the patient have a stroke diagnosis?: No Physical Exam Vital Signs: Vital Signs: Last Vital Signs Temp 97.4 F 08/28/22 11:00 Pulse 90 08/28/22 11:13 Resp 18 08/28/22 11:00 BP 97/62 08/28/22 11:13 Pulse Ox 97 08/28/22 11:13 O2 Del Method 08/28/22 11:00 O2 Flow Rate 2 08/27/22 12:00 FiO2 97 08/25/22 19:38 Oxygen Flow Rate 10 08/18/22 01:01 BMI result Body Mass Index 21.5 Const: Other: No acute distress Resp: Other: Clear but diminished bilateral bases Cardio: Other: No S3; positive S1-S2; no S4 murmurs rubs gallops GI: Other: Soft nontender nondistended normoactive bowel sounds Extrem: Other: No edema bilaterally DS: Data Data Completed and Pending Pending studies at discharge: Pending at discharge 08/22/22 07:48 Cytology [PTH] Routine Labs on day of discharge: Laboratory Results - last 24 hr 08/27/22 08/27/22 08/28/22 16:16 20:13 05:38 WBC 5.6 RBC 3.62 L Hgb 11.0 L Hct 32.5 L MCV 89.8 MCH 30.4 MCHC 33.8 RDW 12.8 Plt Count 162 MPV 10.8 Immature Gran % (Auto) 1.6 H Neut % (Auto) 60.6 Lymph % (Auto) 28.6 [place] % (Auto) 7.9 Eos % (Auto) 1.3 Baso % (Auto) 0.0 Lymph # (Auto) 1.6 [place] # (Auto) 0.4 Eos # (Auto) 0.1 Baso # (Auto) 0.0 Abs Immat Gran (auto) 0.09 H Absolute Neuts (auto) 3.4 Absolute Nucleated RBC 0.000 Nucleated RBC % (auto) 0.0 Sodium Potassium Chloride Carbon Dioxide Anion Gap BUN Creatinine Estim Creat Clear Calc Estimated GFR POC Glucose 321 H 272 H Fasting Glucose Calcium Total Bilirubin AST ALT Alkaline Phosphatase Total Protein Albumin 08/28/22 08/28/22 08/28/22 05:38 07:10 10:59 WBC RBC Hgb Hct MCV MCH MCHC RDW Plt Count MPV Immature Gran % (Auto) Neut % (Auto) Lymph % (Auto) [place] % (Auto) Eos % (Auto) Baso % (Auto) Lymph # (Auto) [place] # (Auto) Eos # (Auto) Baso # (Auto) Abs Immat Gran (auto) Absolute Neuts (auto) Absolute Nucleated RBC Nucleated RBC % (auto) Sodium 132 L Potassium 4.2 Chloride 105 Carbon Dioxide 21 L Anion Gap 10 L BUN 16 Creatinine 0.89 Estim Creat Clear Calc 73.2 Estimated GFR > 60 POC Glucose 190 H 286 H Fasting Glucose 180 H Calcium 8.5 Total Bilirubin 0.4 AST 32 ALT 94 H Alkaline Phosphatase 49 Total Protein 5.9 L Albumin 3.2 L Discharge Plan Discharge Anticipated Discharge Date/Time: 08/28/22 13:37 Patient Disposition: Home, Self-Care Discharge Diagnosis: Aspiration pneumonitis Referrals: Physician,Unknown J [Primary Care Provider] - 1 Week Discharge Medications: New sulfamethoxazole-trimethoprim 800-160 mg Tablet 1 tab PO BID Qty: 28 0RF levofloxacin 750 mg Tablet 750 mg PO Q24H Qty: 14 0RF Continued pravastatin 10 mg tablet 1 tab PO DAILY temazepam 30 mg capsule 1 cap PO BEDTIME PRN (Reason: Insomnia) metformin 1,000 mg tablet 1 tab PO BID gabapentin 300 mg capsule 300 mg PO BID lisinopril 2.5 mg tablet 1 tab PO DAILY glipizide 5 mg tablet 1 tab PO DAILY Genvoya [phone] mg tablet 1 tab PO DAILY ferrous sulfate [Iron (ferrous sulfate)] 325 mg (65 mg iron) Tablet 325 mg PO DAILY vitamin B complex Capsule 1 cap PO DAILY cholecalciferol (vitamin D3) [Vitamin D3] 125 mcg (5,000 unit) Tablet 125 mcg PO DAILY Discharge Orders: Discharge Order (Routine); Ordered 08/28/22 Ordered By: Jatin Barajas Diet: Advance to usual diet Activity on Discharge: As tolerated Stand Alone Forms: Patient Portal Discharge page Care Plan Goals: Complete course of Levaquin and prednisone taper and Bactrim as ordered Health Concerns: Follow-up with PCP upon return home Plan of Treatment: Resume all pre-hospital medications Assessment: See discharge summary
[2022-08-29 18:11] LABS: Legionella Ag Urine Not Detected (Not Detected)
== END 2022-08-28 14:41 | disposition home or self-care (01) | DRG 917 ==
LOC: HO.ED 04:15 → HO.EDOVER 05:38 → HO.IMC 11:54
PROVIDERS: Family Medicine; Admitting Provider Student in an Organized Health Care Education/Training Program; Emergency Provider Emergency Medicine; Visit Provider Hospitalist
DX: T40.411A Poisoning by fentanyl or fentanyl analogs, accidental (unintentional), initial encounter (principal); A41.9 Sepsis, unspecified organism; G92.8 Other toxic encephalopathy; J96.01 Acute respiratory failure with hypoxia; J69.0 Pneumonitis due to inhalation of food and vomit; E87.20 Acidosis, unspecified; J45.21 Mild intermittent asthma with (acute) exacerbation; B20 Human immunodeficiency virus [HIV] disease; I24.8 Other forms of acute ischemic heart disease; E78.5 Hyperlipidemia, unspecified; F11.10 Opioid abuse, uncomplicated; E11.65 Type 2 diabetes mellitus with hyperglycemia; I10 Essential (primary) hypertension; Z20.822 Contact with and (suspected) exposure to COVID-19; Z79.84 Long term (current) use of oral hypoglycemic drugs; Z79.899 Other long term (current) drug therapy
CPT/HCPCS: 36415; 70450; 71275; 72125; 80048; 80053; 80076; 80143; 80179; 80307; 81001; 82077; 82140; 82550; 82803; 82947; 83036; 83605; 83615; 83690; 83735; 84145; 84484; 85025; 85027; 85379; 85610; 85730; 86140; 86359; 86360; 87040; 87449; 87536; 87633; 87635; 87798; 93005; 93306; 94640; 94664; 97116; 97162; 99285; J0295; J0456; J1200; J1650; J2405; J2543; J2765; J3475; Q9967